=== PATIENT | female | born 2000 | race Caucasian/White ===

== ENCOUNTER 2020-02-25 11:18 | Outpatient (REF) | payer OTHER, SELFPAY ==
[2020-02-25 12:40] LABS: Alanine Aminotransferase 18 U/L (0-31); Albumin Level 4.5 g/dL (3.5-5.0); Alkaline Phosphatase 67 U/L (39-117); Anion Gap 12 (12-20); Aspartate Amino Transferase 16 U/L (5-31); Bilirubin Total 0.4 mg/dL (0.0-1.0); Blood Urea Nitrogen 11 mg/dL (9-16); Calcium 9.3 mg/dL (8.4-10.2); Carbon Dioxide 27 mmol/L (22-29); Chloride 104 mmol/L (96-108); Cholesterol 223 mg/dL; Estimated Glomerular Filt Rate > 60; Glucose Random 77 mg/dL (60-115); HDL Cholesterol 56 mg/dL; LDL Cholesterol Calculated 154 mg/dl; Potassium 4.3 mmol/l (3.3-5.1); Sodium 139 mmol/L (135-145); Total Protein 7.1 g/dL (6.5-8.0); Triglycerides 67 mg/dL
== END 2020-02-25 11:19 | disposition home or self-care (01) ==
LOC: HO.LAB 11:18
PROVIDERS: PCP Family Medicine; Visit Provider Family Medicine
DX: Z00.00 Encounter for general adult medical examination without abnormal findings (principal); E78.5 Hyperlipidemia, unspecified
CPT/HCPCS: 80053; 80061

== ENCOUNTER 2020-03-01 10:58 | Outpatient (REF) | payer OTHER, SELFPAY | END 2020-03-01 10:59 | disposition home or self-care (01) | LOC: HO.HMGCLDS 10:58 | PROVIDERS: PCP Family Medicine; Visit Provider Internal Medicine | DX: Z20.822 Contact with and (suspected) exposure to COVID-19 (principal) | CPT/HCPCS: 36415; C9803; U0003 ==

== ENCOUNTER 2020-03-10 10:06 | Outpatient (REF) | payer OTHER, SELFPAY | END 2020-03-10 10:07 | disposition home or self-care (01) | LOC: HO.HMGCLDS 10:06 | PROVIDERS: PCP Family Medicine; Visit Provider Internal Medicine | DX: Z20.822 Contact with and (suspected) exposure to COVID-19 (principal) | CPT/HCPCS: 36415; C9803; U0003 ==

== ENCOUNTER 2020-05-28 10:49 | Outpatient (REF) | payer OTHER, SELFPAY ==
[2020-05-28 12:36] LABS: Cholesterol 140 mg/dL; HDL Cholesterol 47 mg/dL; LDL Cholesterol Calculated 78 mg/dl; Triglycerides 77 mg/dL
== END 2020-05-28 10:50 | disposition home or self-care (01) ==
LOC: HO.LAB 10:49
PROVIDERS: PCP Family Medicine; Visit Provider Family Medicine
DX: Z00.00 Encounter for general adult medical examination without abnormal findings (principal); E78.5 Hyperlipidemia, unspecified
CPT/HCPCS: 36415; 80061

== ENCOUNTER → 2020-08-19 13:17 | Outpatient (REF) | payer OTHER, SELFPAY ==
--- NOTE | 2020-08-19 13:20 | ECG_ITS ---
Hook-up date: 2020-08-19 13:38:00 Duration: 47:59:00 Test Indications: UNSPEC TACHYCARDIA Medications: 332154 QRS complexes * Ventricular ectopics which represent % of total QRS comp. * Supraventricular ectopics which represent % of total QRS comp. * Paced QRS complexs which represent % of total QRS comp. VENTRICULAR ECTOPY * Isolated * Bigeminal Cycles * Couplets * Runs * Beats in Runs * Beats LONGEST at * BPM at :: -- * Beats FASTEST at * BPM at :: -- SUPRAVENTRICULAR ECTOPY * Isolated * Couplets * Runs * Beats in Runs * Beats LONGEST at * BPM at :: -- * Beats FASTEST at * BPM at :: -- HEART RATES 49 MIN at 03:24:00 2020-08-20 83 AVG 174 MAX at 11:04:22 2020-08-20 LONGEST RR 1.2960 secs at 03:53:05 2020-08-20 S-T LEVELS Channel 1 - 128 mm at 13:38:00 2020-08-19 - 128 mm at 13:38:00 2020-08-19 Channel 2 - 128 mm at 13:38:00 2020-08-19 - 128 mm at 13:38:00 2020-08-19 Channel 3 - 128 mm at 03:25:71 -- - 128 mm at 03:25:71 Basic rhythm Normal sinus rhythm No long pause or profound bradycardia Frequent Sinus tachycardia , 25% of time HR > 100 bpm No dangerous dysrhythm periods Patient reported symptoms correlated with NSR Referred By: Fer Drummond Overread By: JUAN PRICE MD
== END ==
LOC: HO.CARD 13:17
PROVIDERS: PCP Family Medicine; Visit Provider Family Medicine
DX: R00.0 Tachycardia, unspecified (principal)
CPT/HCPCS: 93225; 93226

== ENCOUNTER → 2020-11-04 13:57 | Outpatient (BNVA) | payer OTHER, SELFPAY | PROVIDERS: PCP Family Medicine; Referring Provider Family Medicine; Visit Provider Internal Medicine | DX: R00.0 Tachycardia, unspecified (principal); R00.2 Palpitations; R06.02 Shortness of breath; E78.00 Pure hypercholesterolemia, unspecified; G43.909 Migraine, unspecified, not intractable, without status migrainosus; E66.3 Overweight; U07.0 Vaping-related disorder; J30.1 Allergic rhinitis due to pollen; J30.2 Other seasonal allergic rhinitis; Z68.25 Body mass index [BMI] 25.0-25.9, adult; Z91.013 Allergy to seafood; Z79.899 Other long term (current) drug therapy | CPT/HCPCS: 93005; 99202 ==

== ENCOUNTER → 2020-12-02 12:20 | Outpatient (REF) | payer OTHER, SELFPAY ==
--- NOTE | 2020-12-02 12:27 | HM_ITS ---
Conclusion: 1. Patient was monitored for 3 days and 4 hours 2. Baseline rhythm is sinus rhythm with average heart of 89 beats per minute. 3. Frequent sinus tachycardia, 34.5% of time heart rate greater than 100 beats per minute 4. Control 7 PACs accounted for less than 0.01% of total beats accounting for very rare PACs 5. No significant Avni or tachyarrhythmias noted 6. No patient reported event MTDD
== END ==
LOC: HO.CARD 12:20
PROVIDERS: Visit Provider Family Medicine
DX: R00.0 Tachycardia, unspecified (principal)
CPT/HCPCS: 93242

== ENCOUNTER → 2020-12-09 12:50 | Outpatient (REF) | payer OTHER, SELFPAY ==
--- NOTE | 2020-12-09 13:04 | CA_ITS ---
Transthoracic Echocardiogram Patient (Last, First, Middle): Mary Ray, Gender: Female Date of : 2000 Age: 20 Procedure Date: 12/09/2020 Procedure Type: Transthoracic Echocardiogram Location: OP Height: 160.02 cm Weight: 61.24 kg BSA: 1.64 m2 Heart Rate: bpm BP: 102 / 60 mmHg Tub Puller: DENIS Referring MD: Dami Garza MD Take Off Worker: Robert Be MD Symptoms: R00.0 - Tachycardia, unspecified Study Quality: Fair ECG Rhythm: Sinus Conclusions: - Normal study Findings Left Ventricle Normal left ventricular size, thickness, and systolic function. The visually estimated ejection fraction is between 60-65%. Spectral Doppler is indicative of a normal filling pattern. Right Ventricle Normal right ventricular cavity size and systolic function. Atria Both atria are normal in size. There is no evidence of interatrial shunt. Aortic Valve Normal aortic valve structure and function. There is no aortic valve stenosis. There is no aortic valve regurgitation. Mitral Valve Normal mitral valve structure and function. There is no mitral valve regurgitation. There is no mitral valve stenosis. Pulmonic Valve The pulmonic valve was not well visualized. Tricuspid Valve Normal tricuspid valve structure. There is trace tricuspid valve regurgitation. The right ventricular systolic pressure is normal. The right ventricular systolic pressure is 20 mmHg. Normal right atrial pressure. There is no evidence of pulmonary hypertension. Great Vessels All visible segments of the aorta are normal in size. The pulmonary artery was not well visualized. Venous The inferior vena cava is normal in size and collapses greater than 50% with inspiration. Pericardium/Pleural There is no evidence of pericardial effusion. Prior Study Comparison No prior study available for comparison. Measurements M-Mode Liner Measurements Normals - Women/Men IVSd: 1.08 0.6-0.9/0.6-1.0 cm LVIDd: 4.63 3.9-5.3/4.2-5.9 cm LVIDd Index: 2.82 1.9-3.2 cm/m2 LVIDs: 3.34 2.0-3.8 cm LVPWd: 0.74 0.6-0.9/0.6-1.0 cm LV Mass: 175.59 67-162/88-224g LV Mass Index: 107.07 43-95/49-115 g/m2 M-Mode Volumes LV EDV: 98.80 LV ESV: 45.40 2D Linear Measurements IVSd: 0.87 0.6-0.9/0.6-1.0 cm LVIDd: 4.57 3.9-5.3/4.2-5.9 cm LVIDd Index: 2.79 2.4-3.2/2.2-3.1 cm/m2 LVIDs: 2.73 2.0-3.6 cm LVPWd: 0.57 0.7-1.1 cm Ao Root: 2.30 2.1-3.5 cm LA Diam: 3.10 2.7-3.8/3.0-4.0 cm LAIDs Index: 1.89 1.5-2.3 cm/m2 LV Mass: 125.94 67-162/88-224 g LV Mass Index: 76.79 43-95/49-115 g/m2 LVOT Diam: 1.90 3.0+(-)1.3 cm 2D Systolic Function EF 4C: 59.80 >55% EF 2C: 70.60 >55% EF BiP: 65.60 >55% M-Mode Systolic Function FS: 27.90 27-47/25-43% Mitral Valve MV Pk E: 0.96 MV PK A: 0.45 MV Decel Time: 207.00 E/A: 2.10 E'Lateral: 16.40 E'Medial: 9.79 E/E' Med: 9.80 E/E' Lat: 5.90 PHT: 61.00 MVA PHT: 3.61 Decel [place]: 4.64 Aortic Valve AoV Pk Harley: 1.43 AoV Pk Grad: 8.00 LVOT LVOT Pk Harley: 1.11 LVOT Mn Harley: 0.75 LVOT VTI: 0.20 LVOT Pk Grad: 5.00 LVOT Mn Grad: 3.00 LVOT Diam: 1.90 LVOT Area: 2.84 Diastolic Function MV Pk E: 0.96 MV Pk A: 0.45 E/A: 2.10 E'Medial: 9.79 E/E' Med: 9.80 E' Laterial: 16.40 E/E' Lat: 5.90 Right Ventricle TAPSE (mm): 2.11 Tricuspid Valve TR Pk Harley: 2.08 TR Pk Grad: 17.00 RA Press: 3.00 RVSP: 20.00 Great Vessels Aorta Ao Root-2D: 2.30 2.0-3.7 cm Ao Asc: 2.50 2.1-3.4 cm Ao Arch: 2.30 Updated in Other Vendor System with Status of Final Robert Be MD electronically signed on 12/11/2020 2:12:02 PM with status of Final
== END ==
LOC: HO.CARD 12:50
PROVIDERS: Visit Provider Internal Medicine
DX: R00.0 Tachycardia, unspecified (principal)
CPT/HCPCS: 93306

== ENCOUNTER → 2020-12-20 14:48 | Outpatient (BNVA) | payer OTHER, SELFPAY | PROVIDERS: PCP Family Medicine; Referring Provider Family Medicine; Visit Provider Internal Medicine | DX: R00.0 Tachycardia, unspecified (principal); R00.2 Palpitations; R06.02 Shortness of breath | CPT/HCPCS: 99212 ==

== ENCOUNTER → 2021-01-11 12:30 | Outpatient (BNVA) | payer OTHER, SELFPAY | PROVIDERS: PCP Family Medicine; Referring Provider Family Medicine; Visit Provider Internal Medicine ==

== ENCOUNTER 2021-09-16 10:49 | Outpatient (REF) | payer OTHER, SELFPAY ==
[2021-09-16 13:55] LABS: MANUAL DIFF FLAG NO
[2021-09-16 13:57] LABS: Basophils Percent Auto 0.6 % (0-2); Eosinophils Absolute Auto 0.1 X10*3/uL (0.0-0.4); Eosinophils Percent Auto 1.4 % (0-4); Hematocrit 38.2 % (37.0-47.0); Hemoglobin 12.4 g/dl (12.0-16.0); Imm Gran Abs Auto 0.01 X10*3/uL (0.00-0.03); Imm Gran Pct Auto 0.2 % (0.0-0.4); Lymphocytes Absolute Auto 2.3 X10*3/uL (1.2-4.9); Lymphocytes Percent Auto 47.8 % (20-40); Mean Corpuscular HGB Conc 32.5 g/dl (31.0-35.0); Mean Corpuscular Hemoglobin 28.8 pg (27.0-33.0); Mean Corpuscular Volume 88.6 fL (80.0-98.0); Mean Platelet Volume 11.4 fL (9.4-12.3); Monocytes Absolute Auto 0.5 X10*3/uL (0.1-1.2); Monocytes Percent Auto 10.1 % (2-11); Neutrophils Absolute Auto 1.9 x10*3/uL (2.0-8.3); Neutrophils Percent Auto 39.9 % (45-73); Platelet Count 217 X10*3/uL (160-400); Red Blood Count 4.31 X10*6/uL (4.20-5.50); Red Cell Distribution Width 12.4 % (11.0-16.0); White Blood Count 4.9 X10*3/uL (4.8-10.8)
[2021-09-16 14:31] LABS: Appearance Urine CLEAR; Color Urine YELLOW; Glucose Urine UA NEG (NEG); Leukocyte Esterase Urine 3+ (NEG); Nitrite Urine NEG (NEG); PH 7.5 (5.0-8.0); Urine Blood 1+ (NEG); Urine Ketones NEG (NEG); Urine Protein NEG (NEG-TRACE)
[2021-09-16 14:47] LABS: Bacteria Urine 4+ /LPF; Squamous Epithelial Cell Urine 3+ /LPF; WBC Urine 30-49 /HPF (0-4)
[2021-09-16 15:05] LABS: Alanine Aminotransferase 17 U/L (0-31); Alkaline Phosphatase 57 U/L (39-117); Anion Gap 11 (12-20); Aspartate Amino Transferase 23 U/L (5-31); Bilirubin Total 0.5 mg/dL (0.0-1.0); Blood Urea Nitrogen 6 mg/dL (9-16); Carbon Dioxide 25 mmol/L (22-29); Chloride 108 mmol/L (96-108); Cholesterol 150 mg/dL; Estimated Glomerular Filt Rate > 60; Glucose Fasting 83 mg/dL (60-99); HDL Cholesterol 54 mg/dL; LDL Cholesterol Calculated 86 mg/dl; Potassium 4.3 mmol/L (3.3-5.1); Sodium 140 mmol/L (135-145); Total Protein 6.3 g/dL (6.5-8.0); Triglycerides 50 mg/dL
[2021-09-16 15:24] LABS: TSH reflex Free T4 0.66 uIU/mL (0.32-4.0)
== END 2021-09-16 10:50 | disposition home or self-care (01) ==
LOC: HO.WFDLDS 10:49
PROVIDERS: Visit Provider Family Medicine
DX: Z00.00 Encounter for general adult medical examination without abnormal findings (principal)
CPT/HCPCS: 36415; 80053; 80061; 81001; 81003; 84443; 85025

== ENCOUNTER 2021-11-21 14:28 | Outpatient (REF) | payer OTHER, SELFPAY ==
[2021-11-22 06:06] LABS: CT PCR NOT DETECTED (Not Detect.); NG PCR NOT DETECTED (Not Detect.)
[2021-11-22 11:11] LABS: BV Int Neg Control Negative (Negative); BV Int Pos Control Positive (Positive)
[2021-12-05 20:56] LABS: HPV 16 RNA NOT DETECTED (NOT DETECTED); HPV mRNA E6/E7 rflx Detected (Not Detected)
== END 2021-11-21 14:29 | disposition home or self-care (01) ==
LOC: HO.LNP 14:28
PROVIDERS: Visit Provider Advanced Practice Midwife
DX: Z01.419 Encounter for gynecological examination (general) (routine) without abnormal findings (principal); Z11.3 Encounter for screening for infections with a predominantly sexual mode of transmission; Z11.51 Encounter for screening for human papillomavirus (HPV)
CPT/HCPCS: 87480; 87491; 87510; 87591; 87624; 87625; 87660; 88142

== ENCOUNTER 2022-01-12 11:28 | Outpatient (REF) | payer OTHER, SELFPAY ==
[2022-01-13 02:14] LABS: CT PCR NOT DETECTED (Not Detect.); NG PCR NOT DETECTED (Not Detect.)
[2022-01-13 10:09] LABS: BV Int Neg Control Negative (Negative); BV Int Pos Control Positive (Positive)
== END 2022-01-12 11:29 | disposition home or self-care (01) ==
LOC: HO.LNP 11:28
PROVIDERS: PCP Family Medicine; Visit Provider Obstetrics & Gynecology
DX: N93.0 Postcoital and contact bleeding (principal); R87.610 Atypical squamous cells of undetermined significance on cytologic smear of cervix (ASC-US); R87.810 Cervical high risk human papillomavirus (HPV) DNA test positive
CPT/HCPCS: 87480; 87491; 87510; 87591; 87660; 99212

== ENCOUNTER 2022-08-20 16:05 | Emergency (ER) | payer OTHER, SELFPAY ==
--- NOTE | ~2022-08-20 | XR_ITS ---
Indication: Pain EXAMINATION: Right elbow, right shoulder, right wrist. 4 views of the right wrist demonstrate some one view only minimal lucencies of the mid to distal navicular but this appearance is likely artifact. Therefore no convincing evidence for an acute fracture or dislocation. Alignment is within normal limits. No bony erosion or osteopenia 3 views the right shoulder does not demonstrate evidence for an acute fracture or dislocation. No bony erosion. No osteopenia. 3 views of the right elbow does not demonstrate evidence for an acute fracture or dislocation. No bony erosion or osteopenia. XR/XR shoulder RT min 2V IMPRESSION: Multiple studies. On one view only some minimal lucency through the mid to distal navicular is likely artifact but point palpation would be recommended here and correlation clinically. Otherwise unremarkable studies.
--- NOTE | ~2022-08-20 | XR_ITS ---
Indication: Pain EXAMINATION: Right elbow, right shoulder, right wrist. 4 views of the right wrist demonstrate some one view only minimal lucencies of the mid to distal navicular but this appearance is likely artifact. Therefore no convincing evidence for an acute fracture or dislocation. Alignment is within normal limits. No bony erosion or osteopenia 3 views the right shoulder does not demonstrate evidence for an acute fracture or dislocation. No bony erosion. No osteopenia. 3 views of the right elbow does not demonstrate evidence for an acute fracture or dislocation. No bony erosion or osteopenia. XR/XR wrist RT 2V IMPRESSION: Multiple studies. On one view only some minimal lucency through the mid to distal navicular is likely artifact but point palpation would be recommended here and correlation clinically. Otherwise unremarkable studies.
--- NOTE | ~2022-08-20 | XR_ITS ---
Indication: Pain EXAMINATION: Right elbow, right shoulder, right wrist. 4 views of the right wrist demonstrate some one view only minimal lucencies of the mid to distal navicular but this appearance is likely artifact. Therefore no convincing evidence for an acute fracture or dislocation. Alignment is within normal limits. No bony erosion or osteopenia 3 views the right shoulder does not demonstrate evidence for an acute fracture or dislocation. No bony erosion. No osteopenia. 3 views of the right elbow does not demonstrate evidence for an acute fracture or dislocation. No bony erosion or osteopenia. XR/XR elbow RT 2V IMPRESSION: Multiple studies. On one view only some minimal lucency through the mid to distal navicular is likely artifact but point palpation would be recommended here and correlation clinically. Otherwise unremarkable studies.
[2022-08-20 17:03] VITALS: BP 125/80; PULSE 98; RESP 20; TEMP 36.8; O2SAT 100; BMI 28.3
[2022-08-20 18:31] VITALS: BP 114/67; PULSE 78; RESP 12; TEMP 37.3
[2022-08-20 20:36] VITALS: BP 100/70; PULSE 84; RESP 18; TEMP 36.6; O2SAT 100
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
[2022-08-20] MEDS: Ketorolac Tromethamine 60 MG/2 ML VIAL IM (20:46)
== END 2022-08-20 20:50 | disposition home or self-care (01) ==
PROVIDERS: Emergency Provider Internal Medicine; PCP Family Medicine
DX: S66.911A Strain of unspecified muscle, fascia and tendon at wrist and hand level, right hand, initial encounter (principal); S62.001A Unspecified fracture of navicular [scaphoid] bone of right wrist, initial encounter for closed fracture; M25.511 Pain in right shoulder; M25.531 Pain in right wrist; V86.55XA Driver of 3- or 4- wheeled all-terrain vehicle (ATV) injured in nontraffic accident, initial encounter; Y93.9 Activity, unspecified; Y92.9 Unspecified place or not applicable; Y99.9 Unspecified external cause status; Z79.899 Other long term (current) drug therapy
CPT/HCPCS: 29125; 73030; 73070; 73100; 96372; 99284; J1885

== ENCOUNTER 2022-12-05 14:54 | Outpatient (AMB) | payer OTHER, SELFPAY ==
[2022-12-05 14:58] VITALS: BP 134/82; BMI 29.6
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
== END 2022-12-05 15:57 | disposition home or self-care (01) ==
PROVIDERS: PCP Family Medicine; Visit Provider Advanced Practice Midwife
DX: Z12.4 Encounter for screening for malignant neoplasm of cervix (principal); Z01.419 Encounter for gynecological examination (general) (routine) without abnormal findings; Z87.898 Personal history of other specified conditions; Z11.3 Encounter for screening for infections with a predominantly sexual mode of transmission; Z30.09 Encounter for other general counseling and advice on contraception
CPT/HCPCS: 99395

== ENCOUNTER 2022-12-05 14:54 | Outpatient (REF) | payer OTHER, SELFPAY ==
[2022-12-09 04:39] LABS: HPV 16 RNA NOT DETECTED (NOT DETECTED); HPV mRNA E6/E7 rflx Detected (Not Detected)
== END 2022-12-05 14:55 | disposition home or self-care (01) ==
LOC: HO.LNP 14:54
PROVIDERS: PCP Family Medicine; Visit Provider Advanced Practice Midwife
DX: Z01.419 Encounter for gynecological examination (general) (routine) without abnormal findings (principal); Z11.51 Encounter for screening for human papillomavirus (HPV); Z20.2 Contact with and (suspected) exposure to infections with a predominantly sexual mode of transmission
CPT/HCPCS: 0353U; 87480; 87510; 87624; 87625; 87660; 88142

== ENCOUNTER 2022-12-08 07:40 | Outpatient (REF) | payer OTHER, SELFPAY ==
[2022-12-08 09:24] LABS: Basophils Percent Auto 0.4 % (0-2); Eosinophils Absolute Auto 0.1 X10*3/uL (0.0-0.4); Eosinophils Percent Auto 1.5 % (0-4); Hematocrit 40.6 % (37.0-47.0); Hemoglobin 13.1 g/dl (12.0-16.0); Imm Gran Abs Auto 0.01 X10*3/uL (0.00-0.03); Imm Gran Pct Auto 0.1 % (0.0-0.4); Lymphocytes Absolute Auto 2.4 X10*3/uL (1.2-4.9); Lymphocytes Percent Auto 34.4 % (20-40); MANUAL DIFF FLAG NO; Mean Corpuscular HGB Conc 32.3 g/dl (31.0-35.0); Mean Corpuscular Hemoglobin 27.9 pg (27.0-33.0); Mean Corpuscular Volume 86.4 fL (80.0-98.0); Mean Platelet Volume 10.7 fL (9.4-12.3); Monocytes Absolute Auto 0.5 X10*3/uL (0.1-1.2); Monocytes Percent Auto 7.6 % (2-11); Neutrophils Absolute Auto 3.8 x10*3/uL (2.0-8.3); Platelet Count 227 X10*3/uL (160-400); Red Cell Distribution Width 12.5 % (11.0-16.0); White Blood Count 6.8 X10*3/uL (4.8-10.8)
[2022-12-08 09:32] LABS: Appearance Urine Clear; Color Urine Yellow; Glucose Urine UA Negative (Negative); Leukocyte Esterase Urine Negative (Negative); Nitrite Urine Negative (Negative); PH 5.5 (5.0-9.0); UMIC TRIGGER UA YES; Urine Blood Trace (Negative); Urine Ketones Negative (Negative); Urine Protein Negative (Neg-Trace)
[2022-12-08 09:40] LABS: Bacteria Urine None Seen (None Seen); Hyaline Casts Urine 0-2 /LPF (0-2); RBC Urine 0-2 /HPF (0-2); Squamous Epithelial Cell Urine 0-2 /HPF (0-2); WBC Urine 0-5 /HPF (0-5)
[2022-12-08 10:31] LABS: Alanine Aminotransferase 17 U/L (0-31); Albumin Level 4.4 g/dL (3.5-5.0); Alkaline Phosphatase 59 U/L (39-117); Anion Gap 15 (12-20); Aspartate Amino Transferase 17 U/L (5-31); Bilirubin Total 0.3 mg/dL (0.0-1.0); Blood Urea Nitrogen 6 mg/dL (9-16); Calcium 9.7 mg/dL (8.4-10.2); Carbon Dioxide 23 mmol/L (22-29); Chloride 105 mmol/L (96-108); Cholesterol 161 mg/dL (<200); Estimated Glomerular Filt Rate > 60; Glucose Fasting 84 mg/dL (60-99); HDL Cholesterol 64 mg/dL (>40); LDL Cholesterol Calculated 89 mg/dL (<100); Sodium 139 mmol/L (135-145); Total Protein 7.2 g/dL (6.5-8.0); Triglycerides 42 mg/dL (<150)
[2022-12-08 10:42] LABS: Syphilis Screen Nonreactive (Nonreactive)
[2022-12-08 10:46] LABS: HBsAGNum1 0.41 S/CO (0.00-0.99); HIV AB/AG Nonreactive (Nonreactive); HIV Num 1 0.04 S/CO (0.00-0.99); Hepatitis B Surface Antigen Negative (Negative); ~HepC Num1 0.05 S/CO (0.00-0.79); ~Hepatitis C Antibody Nonreactive (Nonreactive)
[2022-12-08 10:50] LABS: Free T4 (Free Thyroxine) 0.81 ng/dL (0.71-1.85)
[2022-12-09 10:49] LABS: Triiodothyronine T3 Total 163 ng/dL (76-181)
== END 2022-12-08 07:41 | disposition home or self-care (01) ==
LOC: HO.LAB 07:40
PROVIDERS: Absent Provider Advanced Practice Midwife; PCP Family Medicine; Visit Provider Family Medicine
DX: Z00.00 Encounter for general adult medical examination without abnormal findings (principal); Z11.4 Encounter for screening for human immunodeficiency virus [HIV]; E03.9 Hypothyroidism, unspecified; Z20.2 Contact with and (suspected) exposure to infections with a predominantly sexual mode of transmission
CPT/HCPCS: 36415; 80053; 80061; 81001; 84439; 84443; 84480; 85025; 86780; 86803; 87340; 87389

== ENCOUNTER 2023-01-02 11:22 | Outpatient (REF) | payer OTHER, SELFPAY ==
--- NOTE | ~2023-01-02 | US_ITS ---
EXAMINATION: US PELVIS COMPLETE CLINICAL INFORMATION: Abnormal Pap smear. COMPARISON: None TECHNIQUE: Transabdominal and transvaginal imaging was performed. FINDINGS: The uterus is of normal size and echogenicity measuring 6.4 x 2.3 x 3.3 cm. A regular homogeneous endometrium is identified measuring 0.5 cm. Prominent myometrial and adnexal vessels which is seen in the setting of pelvic venous congestion syndrome with clinical history is appropriate. Cervix measures 2.1 cm in length. Both ovaries are of normal size and echogenicity. The right measures 2.3 x 6.6 x 1.5 cm for a volume of 2.9 mL. The left measures 2.1 x 1.5 x 1.3 cm for a volume of 2.2 mL. There is no pelvic free fluid. US/US pelvic and transvaginal IMPRESSION: Prominent myometrial and adnexal vessels which is seen in the setting of pelvic venous congestion syndrome with clinical history is appropriate. Otherwise unremarkable pelvic ultrasound, however recommend correlation with Pap smear results and further clinical management as warranted.
== END 2023-01-02 11:23 | disposition home or self-care (01) ==
LOC: HO.US 11:22
PROVIDERS: PCP Family Medicine; Visit Provider Advanced Practice Midwife
DX: Z32.02 Encounter for pregnancy test, result negative (principal); Z87.898 Personal history of other specified conditions; A63.0 Anogenital (venereal) warts; B97.7 Papillomavirus as the cause of diseases classified elsewhere
CPT/HCPCS: 57454; 76830; 76856; 81025

== ENCOUNTER 2023-01-02 13:08 | Outpatient (AMB) | payer OTHER, SELFPAY ==
--- NOTE | 2023-01-02 13:10 | MHC.OFFVIS ---
Intake Vital Signs 01/02/23 13:17 Height 5 ft 3 in Weight 165 lb 5.547 oz BMI 29.3 BP 120/76 Intake Visit Reasons: COLPO Port Surveyor Required: No Information Interpreted: non-clinical & clinical Crm Dynamics Developer: Crm Dynamics Developer Present (Lorie SHELL) Accompanied by: Self / Same As Patient Allergies shellfish derived [SHELLFISH DERIVED] Allergy (Severe, Verified 01/02/23 13:19) hives SEAFOOD Allergy (Severe, Uncoded 01/02/23 13:19) swelling GRASS Allergy (Intermediate, Uncoded 01/02/23 13:19) Rash SEASONAL ALLERGIES Allergy (Mild, Uncoded 01/02/23 13:19) sneezing Is last menstrual period known: Yes Last menstrual period: 12/26/22 HPI HPI Comments History of Present Illness Details Presenting referred from Mercedes Ray CNM regarding negative Pap smear/HPV E6/E7 positive, negative HPV 16/18/45. The patient had ascus/HPV positive last year [facility] Medical History High cholesterol Motion sickness Migraine Overweight (BMI 25.0-29.9) Paroxysmal sinus tachycardia Surgical History No pertinent past surgical history Family History Mother Cancer Cervical cancer Father No problems noted. Paternal Grandmother Heart attack Social History Housing: House Alcohol intake: current Alcohol intake frequency: holidays/special occasions only Patient Tobacco Use Status: Never used Tobacco e-Cigarette/Vaping Use: Currently Using Second Hand Smoke Exposure: No service: No Current occupational status: employed Current occupational exposures/hazards: No Cognitive needs: No Hearing needs: No Vision needs: No Female Reproductive History Menstrual Age of Menarche: 12 Date of last menstrual period: 12/26/22 control method: pills Physical Exam Vital Signs: Last Vital Signs BP 120/76 01/02/23 13:17 BMI result Body Mass Index 29.3 Office Procedures Colposcopy Before the procedure was started discussed with the patient the procedure, alternatives & all the risks associated with the procedure (bleeding, infection, injury to vagina, bladder, vessels, possible need for transfusion with all its risks) then patient signed the consent Pap smear = negative Pap/HPV positive, preceded by ascus/HPV positive in 2021 Urine test done in the office was negative Speculum inserted, acetic acid used Colposcopy done Transformation zone seen, acetowhite lesions identified at 5+6+7+9+10+1+3 o?clock, cervical biopsies taken from 5+6+7+9+10+1+3 o?clock, ECC done afterwards. Vaginoscopy of the upper vagina showed no evidence of any aceto-white lesions Monsel solution used for hemostasis. The patient tolerated well . At the end the patient was instructed to call if temp>100.4, abdominal pain, n/v, bleeding; The patient was given the following instructions: nothing per vagina, no intercourse or bath tub use. All questions answered the patient verbalized understanding. Instructed the patient to make an appointment in 2 weeks for follow-up This note was generated with a voice recognition program. Some errors may have been overlooked during the review of this note. Sometimes these errors may affect the content or meaning of a given sentence. 09051-Lnkoydadt of cervix including upper vagina with biopsy and ECC Procedure code (CPT) selection complete Results AMB Test Urine AMB Test Urine Negative Last Edit by Lorie Guerrero CMA on 01/02/23 13:45 Assessment & Plan Assessment & Plan (1) HPV in female: Comment: Negative Pap, preceded by ascus/HPV positive in 2021 Code(s): B97.7 - Papillomavirus as the cause of diseases classified elsewhere Plan: Discussed with the patient the ASCCP guidelines for age is less than 25 with negative Pap preceded by ascus/HPV positive the recommendation is to repeat Pap smear in a year. Explained to the patient that HPV was not indicated, but the patient is very anxious about risk of severe dysplasia and is concerned about the impact of immunosuppression indication due to her autoimmune disease and is requesting more of diagnostic test, explained the patient that colposcopy is not be indicated per ASCCP guidelines, Pap will proceed with colposcopy per request , all questions answered the patient verbalized understand Orders: Orders AMB Colposcopy Today B97.7 - Papillomavirus as the cause of diseases classified elsewhere AMB HCG Urine Test Today Z32.02 - Encounter for test, result negative Coding Level of Care Code Procedure Only Diagnoses HPV in female B97.7 CPT Codes Colposcopy - CPT: 67824-Mejfihyis of cervix including upper vagina with biopsy and ECC ([id number])
[2023-01-02 13:17] VITALS: BP 120/76; BMI 29.3
== END 2023-01-02 14:16 | disposition home or self-care (01) ==
LOC: HO.HWS 13:08
PROVIDERS: PCP Family Medicine; Visit Provider Obstetrics & Gynecology
DX: R87.810 Cervical high risk human papillomavirus (HPV) DNA test positive (principal); Z32.02 Encounter for pregnancy test, result negative
CPT/HCPCS: 57454

== ENCOUNTER 2023-01-02 14:16 | Outpatient (REF) | payer OTHER, SELFPAY | END 2023-01-02 14:17 | disposition home or self-care (01) | LOC: HO.LNP 14:16 | PROVIDERS: Visit Provider Obstetrics & Gynecology | DX: A63.0 Anogenital (venereal) warts (principal); B97.7 Papillomavirus as the cause of diseases classified elsewhere | CPT/HCPCS: 88305 ==

== ENCOUNTER 2023-01-04 15:33 | Outpatient (AMB) | payer OTHER, SELFPAY ==
--- NOTE | 2023-01-04 15:39 | MHC.OFFVIS ---
Intake Vital Signs 01/04/23 15:51 Height 5 ft 3 in Weight 165 lb 5.547 oz BMI 29.3 Temp 97.1 F Intake Visit Reasons: follow up per Compensation Coordinator Required: No Information Interpreted: non-clinical & clinical Commercial Escrow Officer: Commercial Escrow Officer Present (Lorie SHELL) Accompanied by: Self / Same As Patient Allergies shellfish derived [SHELLFISH DERIVED] Allergy (Severe, Verified 01/04/23 15:41) hives SEAFOOD Allergy (Severe, Uncoded 01/04/23 15:41) swelling GRASS Allergy (Intermediate, Uncoded 01/04/23 15:41) Rash SEASONAL ALLERGIES Allergy (Mild, Uncoded 01/04/23 15:41) sneezing HPI HPI Comments History of Present Illness Details Presenting 2 days post colposcopy complaining of pelvic cramping, no vaginal discharge no fever or chills, no nausea or vomiting. [facility] Medical History High cholesterol Motion sickness Migraine Overweight (BMI 25.0-29.9) Paroxysmal sinus tachycardia Surgical History No pertinent past surgical history Family History Mother Cancer Cervical cancer Father No problems noted. Paternal Grandmother Heart attack Social History Housing: House Alcohol intake: current Alcohol intake frequency: holidays/special occasions only Patient Tobacco Use Status: Never used Tobacco e-Cigarette/Vaping Use: Currently Using Second Hand Smoke Exposure: No service: No Current occupational status: employed Current occupational exposures/hazards: No Cognitive needs: No Hearing needs: No Vision needs: No Female Reproductive History Menstrual Age of Menarche: 12 Review of Systems Const All systems reviewed & are unremarkable except as noted in HPI and below Physical Exam General: Yes no CVA tenderness External Female Exam: normal external appearance and normal appearance of the urethra Speculum Exam - Vagina: normal appearance of the vagina, normal palpation, no lesions and no masses Speculum Exam - Cervix: normal appearance of the cervix, normal palpation, no lesions, no masses and nontender Bimanual exam- vagina & uterus: normal bimanual exam, normal palpation, uterine size normal, normal palpation, uterine shape normal, No Cervical tenderness present and non-tender Bimanual Exam- Adnexa, other: normal adnexae Back/Spine/Pelvis Back: no CVA tenderness Assessment & Plan Assessment & Plan (1) Pelvic cramping: Comment: Post colposcopy Code(s): R10.2 - Pelvic and perineal pain Plan: Urine test was done in the office was negative. Discussed with the patient the finding on pelvic exam, normal no cervical motion tenderness, no uterine or adnexal tenderness. Instructions given the patient to call in case of worsening of the pain, fever above 100.4, nausea or vomiting or heavy bleeding. All questions answered, the patient verbalized understanding. Coding Level of Care Code Est Pt Level 3 (80799) Diagnoses Pelvic cramping R10.2
[2023-01-04 15:51] VITALS: TEMP 36.2; BMI 29.3
== END 2023-01-04 15:51 | disposition home or self-care (01) ==
LOC: HO.HWS 15:33
PROVIDERS: PCP Family Medicine; Visit Provider Obstetrics & Gynecology
DX: R10.2 Pelvic and perineal pain (principal)
CPT/HCPCS: 99213

== ENCOUNTER → 2023-01-04 15:33 | Outpatient (BNVA) | payer OTHER, SELFPAY | PROVIDERS: PCP Family Medicine; Visit Provider Obstetrics & Gynecology ==

== ENCOUNTER 2023-01-11 08:03 | Outpatient (AMB) | payer OTHER, SELFPAY ==
--- NOTE | 2023-01-11 08:18 | MHC.OFFVIS ---
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 The patient is doing well with minimal pelvic cramping no vaginal bleeding or discharge, no fever or chills and no other concerns. The pathology showed the following: A. Cervix, 1 o'clock, biopsy: Superficial fragments of mildly inflamed endocervical mucosa; no atypia identified; no squamous epithelium present. B. Cervix, 3 o'clock, biopsy: Superficial fragments of mildly inflamed endocervical mucosa with squamous metaplasia; no atypia identified. C. Cervix, 5 o'clock, biopsy: - Low-grade squamous intraepithelial lesion (MANDY 1). - Background inflamed cervical transformation zone mucosa. D. Cervix, 6 o'clock, biopsy: Fragments of endocervical mucosa and squamous epithelium within normal limits. E. Cervix, 7 o'clock, biopsy: - Low-grade squamous intraepithelial lesion (MANDY 1). - Background inflamed cervical transformation zone mucosa. F. Cervix, 9 o'clock, biopsy: Inflamed cervical transformation zone mucosa with reactive changes. G. Cervix, 10 o'clock, biopsy: Superficial fragments of mildly inflamed endocervical mucosa; no atypia identified; no squamous epithelium present. H. Endocervix, curettage: Strips of endocervical epithelium within normal limits; mucoinflammatory material [facility] Medical History High cholesterol Motion sickness Migraine Overweight (BMI 25.0-29.9) Paroxysmal sinus tachycardia Surgical History No pertinent past surgical history Family History Mother Cancer Cervical cancer Father No problems noted. Paternal Grandmother Heart attack Social History Housing: House Alcohol intake: current Alcohol intake frequency: holidays/special occasions only Patient Tobacco Use Status: Never used Tobacco e-Cigarette/Vaping Use: Currently Using Second Hand Smoke Exposure: No service: No Current occupational status: employed Current occupational exposures/hazards: No Cognitive needs: No Hearing needs: No Vision needs: No Female Reproductive History Menstrual Age of Menarche: 12 Date of last pap smear: 12/06/22 (+HPV) Review of Systems Const All systems reviewed & are unremarkable except as noted in HPI and below Reports as per HPI and Reports no additional complaints GI Reports no additional complaints Reports no additional complaints Physical Exam Vital Signs: Last Vital Signs BP 114/72 01/11/23 08:19 BMI result Body Mass Index 29.2 Assessment & Plan Assessment & Plan (1) Dysplasia of cervix, low grade (MANDY 1): Code(s): N87.0 - Mild cervical dysplasia Plan: Discussed with the patient the pathology results of the colposcopy biopsies & endocervical curettage ( mild dysplasia-MANDY 1). Discussed with the patient the sensitivity specificity, positive and negative predictive value in detecting cervical cancer in addition discussed the regression, persistence and progression rates. Recommended Pap smear in 12 months, if abnormal will proceed was colposcopy biopsy and endocervical curettage, if MANDY 1 gets worse or stays persistent for 2 years will proceed with loop electric excision procedure. Instructions given to the patient to schedule an appointment in 1 year. All questions answered the patient verbalized understanding. Coding Level of Care Code Est Pt Level 3 (03228) Diagnoses Dysplasia of cervix, low grade (MANDY 1) N87.0
[2023-01-11 08:19] VITALS: BP 114/72; BMI 29.2
== END 2023-01-11 08:47 | disposition home or self-care (01) ==
LOC: HO.HWS 08:03
PROVIDERS: PCP Family Medicine; Visit Provider Obstetrics & Gynecology
DX: N87.0 Mild cervical dysplasia (principal)
CPT/HCPCS: 99213

== ENCOUNTER → 2023-01-11 08:03 | Outpatient (BNVA) | payer OTHER, SELFPAY | PROVIDERS: PCP Family Medicine; Visit Provider Obstetrics & Gynecology ==

== ENCOUNTER 2023-01-17 10:10 | Outpatient (AMB) | payer OTHER, SELFPAY ==
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
[2023-01-17 10:23] VITALS: BP 112/72; BMI 29.2
== END 2023-01-17 10:57 | disposition home or self-care (01) ==
LOC: HO.HWS 10:10
PROVIDERS: PCP Family Medicine; Visit Provider Advanced Practice Midwife
DX: N87.0 Mild cervical dysplasia (principal); N93.0 Postcoital and contact bleeding; N94.89 Other specified conditions associated with female genital organs and menstrual cycle; N94.2 Vaginismus
CPT/HCPCS: 99213

== ENCOUNTER → 2023-01-17 10:10 | Outpatient (BNVA) | payer OTHER, SELFPAY | PROVIDERS: PCP Family Medicine; Visit Provider Advanced Practice Midwife ==

== ENCOUNTER 2023-09-12 07:56 | Outpatient (AMB) | payer OTHER, SELFPAY ==
--- NOTE | 2023-09-12 08:04 | AM.OFFWIN_ITS ---
Intake Vital Signs 09/12/23 08:09 Height 5 ft 3 in Weight 175 lb BMI 31.0 BP 116/60 Blood Pressure Location Rt brachial Position Sitting Respiration 16 Pulse 100 Pulse Source Pulse Oximeter Temp 97.5 F Temp Source Temporal Artery Scan Pulse Oximetry (%) 98 Oxygen Delivery Method Room Air Intake Visit Reasons: est/ fever/ not feeling well/migrane Intake Note: patient here as walk in c/o fever, migranes, light headed. Patient Tobacco Use Status: Never used Tobacco Is last menstrual period known: Yes Last menstrual period: 09/05/23 Post menopausal: No Patient : No Allergies shellfish derived [SHELLFISH DERIVED] Allergy (Severe, Verified 09/12/23 08:16) hives SEAFOOD Allergy (Severe, Uncoded 01/17/23 10:24) swelling GRASS Allergy (Intermediate, Uncoded 01/17/23 10:24) Rash SEASONAL ALLERGIES Allergy (Mild, Uncoded 01/17/23 10:24) sneezing Medication List - Last Reconciled 09/12/23 by Melly Reyes, RJ-[place] atorvastatin 10 mg PO BEDTIME erenumab-aooe (Aimovig Autoinjector) 140 mg subcut .monthly 30 days ibuprofen 600 mg PO Q6H PRN pyridostigmine bromide 60 mg PO BID sumatriptan succinate 100 mg PO DAILY Do you need a note to return to daycare/school/sports/work: Yes HPI HPI Comments History of Present Illness Details 23 y/o F here today w/ flu like sx that started last night sudden onset of fever, chills, chest congestion, nasal congestion, body aches, ears feel muffled, lightheadedness home covid test negative this AM 100.5 temp today after fever reducing me dications used Excedrin this AM Reports that she was sick like this in March. And she felt ill for several weeks. She is very worried that she has an underlying issue that is causing her to get sick all the time. Exam Awake alert NAD Sclera and conjunctiva clear bilat Nares w scant clear drainage, turbinates within normal limits, no sinus tenderness with palpation bilat TM intact and clear bilat MMM, pharynx WNL RRR LS CTAB Plan: Supportive care to include cough suppressants, p.r.n. Mary Ann for shortness of breath, [id number] analgesics and fever reducers. Out of work with return 09/19/2023. Recommended a follow up with primary care to request a referral to immunology given the complaints of being sick all of the time. Also advised that if she has a PPO insurance she likely does not need a referral and she can make an appointment on her own. Given the information for allergy and immunology of [facility]. This note is constructed using voice recognition software. While every effort has been made to ensure accuracy in hybrid powertrain development engineer, still errors may have been included Sometimes, these errors may affect the content or meaning of the given sentence . [facility] Medical History High cholesterol Motion sickness Migraine Overweight (BMI 25.0-29.9) Paroxysmal sinus tachycardia Surgical History No pertinent past surgical history Family History Mother Cancer Cervical cancer Father No problems noted. Paternal Grandmother Heart attack Social History Housing: House Alcohol intake: current Alcohol intake frequency: holidays/special occasions only Patient Tobacco Use Status: Never used Tobacco e-Cigarette/Vaping Use: Currently Using Second Hand Smoke Exposure: No service: No Current occupational status: employed Current occupational exposures/hazards: No Cognitive needs: No Hearing needs: No Vision needs: No Female Reproductive History Menstrual Age of Menarche: 12 Date of last menstrual period: 09/05/23 Physical Exam Vital Signs: Last Vital Signs Temp 97.5 F 09/12/23 08:09 Pulse 100 09/12/23 08:09 Resp 16 09/12/23 08:09 BP 116/60 09/12/23 08:09 Pulse Ox 98 09/12/23 08:09 Oxygen Delivery Method Room Air 09/12/23 08:09 BMI result Body Mass Index 31.0 Assessment & Plan Assessment & Plan (1) Flu-like symptoms: Code(s): R68.89 - Other general symptoms and signs Plan: . Medications: New benzonatate 100 mg PO TID 10 days PRN 30 caps 1RF cough albuterol sulfate 90 mcg/actuation 2 puffs inhalation Q4-6H 30 days PRN 8.5 grams 0RF shortness of breath or wheezing Coding Level of Care Code Est Pt Level 3 (70880) Diagnoses Flu-like symptoms R68.89
[2023-09-12 08:09] VITALS: BP 116/60; PULSE 100; RESP 16; TEMP 36.4; O2SAT 98; BMI 31.0
== END 2023-09-12 08:26 | disposition home or self-care (01) ==
PROVIDERS: PCP Family Medicine; Visit Provider Nurse Practitioner Family
DX: R68.89 Other general symptoms and signs (principal)
CPT/HCPCS: 99213

== ENCOUNTER 2023-09-27 15:27 | Outpatient (AMB) | payer OTHER, SELFPAY ==
--- NOTE | 2023-09-27 15:31 | A.OFFPC_ITS ---
Vital Signs 09/27/23 15:33 Height 5 ft 3 in Weight 167 lb 4 oz BMI 29.6 BP 110/66 Blood Pressure Location Lt brachial Position Sitting Pulse 93 Pulse Source Pulse Oximeter Pulse Oximetry (%) 98 Oxygen Delivery Method Room Air Intake Visit Reasons: follow up urgent care visit 09/11 Intake Note: Patient is here to follow up on walk in visit on 09/12/23 and lab results. 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 Accompanied by: Self / Same As Patient Allergies shellfish derived [SHELLFISH DERIVED] Allergy (Severe, Verified 09/27/23 15:33) hives SEAFOOD Allergy (Severe, Uncoded 09/27/23 15:33) swelling GRASS Allergy (Intermediate, Uncoded 09/27/23 15:33) Rash SEASONAL ALLERGIES Allergy (Mild, Uncoded 09/27/23 15:33) sneezing Tobacco use date assessed: 09/27/23 Dental Screening Dental Screen Date: 09/27/23 Did you have a dental visit in the last 12 months?: Yes Did you have a dental problem in the last 6 months where you did not have access to dental care?: No Was dental information given to patient?: Patient has dentist HPI follow up urgent care visit 09/11 HPI Details Pt presents to f/u flu-like symptoms - had seen urgent care for this 09/12/23. Pt reports ongoing sore throat, difficulty swallowing. She had brought labs from an outside lab. Elevated liver enzymes in the 50s. She reports neck pain x1 year. [facility]LY [facility] Medical History High cholesterol Motion sickness Migraine Overweight (BMI 25.0-29.9) Paroxysmal sinus tachycardia Surgical History No pertinent past surgical history Family History Mother Cancer Cervical cancer Father No problems noted. Paternal Grandmother Heart attack Social History Housing: House Alcohol intake: current Alcohol intake frequency: holidays/special occasions only Patient Tobacco Use Status: Never used Tobacco e-Cigarette/Vaping Use: Former Use Second Hand Smoke Exposure: No service: No Current occupational status: employed Current occupational exposures/hazards: No Cognitive needs: No Hearing needs: No Vision needs: No Female Reproductive History Menstrual Age of Menarche: 12 Questionnaire PHQ-9 Over the last 2 weeks, how often have you been bothered by any of the following problems? 1. Little interest or pleasure in doing things: not at all 2. Feeling down, depressed, or hopeless: not at all 3. Trouble falling or staying asleep, or sleeping too much: not at all 4. Feeling tired or having little energy: not at all 5. Poor appetite or overeating: not at all 6. Feeling bad about yourself - or that you are a failure or have let yourself or your family down: not at all 7. Trouble concentrating on things, such as reading the newspaper or watching television: not at all 8. Moving or speaking so slowly that other people could have noticed. Or the opposite - being so fidgety or restless that you have been moving around a lot more than usual: not at all 9. Thoughts that you would be better off or of hurting yourself in some way: not at all Total score: 0 Depression Screening Interpretation: Negative Depression Screening Done: Yes 16087 - PHQ-9 Billing: Yes Source: Developed by Drs. Giuseppe Quispe, Rose Cross, Alex Schulz and colleagues, with an educational ann marie from [employer] Thrive Questionnaire Date Thrive assessed: 09/27/23 I am a: Patient What is your living situation today?: I have a steady place to live Within the past 12 months, did the food you bought not last and you didn't have the money to get more?: Never true Within the past 12 months, did you worry whether your food would run out before you got money to buy more?: Never true Do you have trouble paying for medicines?: No Do you have trouble getting transportation to medical appointments?: No Do you have trouble paying your heating and electricity bill?: No Do you have trouble taking care of your child, family member or friend?: No Do you have trouble with day-to-day activities such as bathing, preparing meals, shopping, managing finances, etc.?: No Are you currently unemployed and looking for a job?: No Are you interested in more education?: No Currently or been in a relationship where the following occur: No concerns reported THRIVE Score: 0 AUDIT C Alcohol Use Questionnaire (AUDIT-C) 1. How often do you have a drink containing alcohol?: Never Total Score: 0 TANMAY-7 AMB Questionnaire TANMAY-7 Date TANMAY - 7 assessed: 09/27/23 Feeling nervous, anxious, or on edge: 0 = Not at all Not being able to stop or control worryin = Not at all Worrying too much about different things: 0 = Not at all Trouble relaxin = Not at all Being so restless that it is hard to sit still: 0 = Not at all Becoming easily annoyed or irritable: 0 = Not at all Feeling afraid as if something awful might happen: 0 = Not at all Total TANMAY-7 score (0-4 normal; 5-9 mild; 10-14 moderate; 15-21 severe): 0 Source: Developed by Drs. Giuseppe Quispe, Rose Cross, Alex Schulz and colleagues, with an educational ann marie from [employer] TANMAY-7 Assessment Billing TANMAY-7 Assessment Tool: TANMAY-7 Assessment 97679 Review of Systems Const Denies chills, Denies fatigue, Denies fever(s), Denies headache(s) and Denies weakness ENT Denies dizziness, Denies headache(s), Reports neck pain and Reports sore throat Card Denies dyspnea Resp Denies cough, Denies dyspnea, Denies wheezing and Denies other (shortness of breath) Musc Reports neck pain, Denies numbness and Denies tingling Neuro Denies dizziness, Denies headache(s), Denies numbness, Denies tingling and Denies weakness Psych Denies anxiety and Denies depression Endo Denies fatigue Aller/Immun Denies wheezing Physical exam (Primary Care) Vital Signs: Last Vital Signs Pulse 93 09/27/23 15:33 BP 110/66 09/27/23 15:33 Pulse Ox 98 09/27/23 15:33 Oxygen Delivery Method Room Air 09/27/23 15:33 BMI result Body Mass Index 29.6 Tobacco/Smoking Status: Tobacco use Status Tobacco use date assessed 09/27/23 09/27/23 15:35 Patient Tobacco Use Status Never used Tobacco 09/27/23 15:35 e-Cigarette/Vaping Use Former Use 09/27/23 15:39 PHQ-9: PHQ-9 Score PHQ-9: Total score 0 09/27/23 15:53 Depression Screening Interpretation: Negative Thrive Assessment: Date of Thrive Assessment Date Thrive assessed 09/27/23 09/27/23 15:35 Currently or been in a relationship where the following occur: No concerns reported Const General: well developed; No acute distress Nutritional Appearance: well nourished Orientation/consciousness: patient oriented x3 HENMT Head: Yes normocephalic and Yes atraumatic Eyes General: appearance normal, both eyes and all related structures Pupils: Equal, round and reactive pupils present EOM: EOMs intact bilaterally Resp Effort & Inspection: normal respiratory effort Neuro General: patient oriented x3 and gait normal Cranial nerves: Yes Equal, round and reactive pupils present Psych Affect: normal affect Assessment and Plan Assessment & Plan (1) Flu-like symptoms: Code(s): R68.89 - Other general symptoms and signs Plan: Patient?still?has vague?flu- like?symptoms.??She?also?tried?to?reach?out?to?immunology?and?was?told?she?would ?need?referral No?lymphadenopathy.??Posterior?pharynx?normal?though?she?mentions?sore?throat (2) Elevated liver enzymes: Code(s): R74.8 - Abnormal levels of other serum enzymes Plan: Mildly?elevated?liver?enzyme Advised?weight?loss?and?good?hydration Avoid?Tylenol?and?alcohol Will?repeat?prior?to?her?next?visit?and?if?daksha er?enzymes?are?the?same?or?higher,?will?check?an?ultrasound (3) Cervicalgia: Code(s): M54.2 - Cervicalgia Plan: Chronic?muscular?cervicalgia Will?check?an?x-ray Start?physical?therapy Ice/heat NSAIDs Orders: Orders Comprehensive [place]. Panel Fast Today R74.8 - Abnormal levels of other serum enzymes, Z00.00 - Encounter for general adult medical examination without abnormal findings Lipid Panel Today E78.00 - Pure hypercholesterolemia, unspecified, Z00.00 - Encounter for general adult medical examination without abnormal findings Microalbumin, Random (w Creat) Today I10 - Essential (primary) hypertension Erythrocyte Sedimentation Rate Today R68.89 - Other general symptoms and signs CRP High Sensitivity Today R68.89 - Other general symptoms and signs Hepatitis B,C Profile Today R68.89 - Other general symptoms and signs, Z11.3 - Encounter for screening for infections with a predominantly sexual mode of transmission PT Evaluation and Treatment Today M54.2 - Cervicalgia TSH reflex Free T4 Today Z00.00 - Encounter for general adult medical examination without abnormal findings UA and rflx microscopic Today Z00.00 - Encounter for general adult medical ex amination without abnormal findings Complete Blood Count Auto Diff Today R68.89 - Other general symptoms and signs, Z00.00 - Encounter for general adult medical examination without abnormal findings SHON Reflex Titer and Pattern Today R68.89 - Other general symptoms and signs HIV Ab/Ag Today R68.89 - Other general symptoms and signs, Z11.3 - Encounter for screening for infections with a predominantly sexual mode of transmission XR cervical spine 3V Today M54.2 - Cervicalgia Referrals Allergy & Immunology Referral R68.89 - Other general symptoms and signs Medications: New diclofenac sodium 1% 2 grams topical QID 30 days 100 grams 1RF M54.2 - Cervicalgia Coding Level of Care Code Tele Est Pt Level 4 (53107) Diagnoses Flu-like symptoms R68.89 Elevated liver enzymes R74.8 Cervicalgia M54.2 Additional Codes TANMAY-7 Assessment Billing - TANMAY-7 Assessment Tool: TANMAY-7 Assessment 61553 ([id number])
[2023-09-27 15:33] VITALS: BP 110/66; PULSE 93; O2SAT 98; BMI 29.6
== END 2023-09-27 16:17 | disposition home or self-care (01) ==
PROVIDERS: PCP Family Medicine; Visit Provider Family Medicine
DX: R68.89 Other general symptoms and signs (principal); R74.8 Abnormal levels of other serum enzymes; M54.2 Cervicalgia
CPT/HCPCS: 99214

== ENCOUNTER 2023-11-26 09:43 | Outpatient (REF) | payer OTHER, SELFPAY ==
[2023-11-26 10:01] LABS: MANUAL DIFF FLAG NO
[2023-11-26 10:11] LABS: Basophils Percent Auto 0.6 % (0-2); Eosinophils Absolute Auto 0.1 X10*3/uL (0.0-0.4); Hematocrit 38.6 % (37.0-47.0); Hemoglobin 12.2 g/dl (12.0-16.0); Imm Gran Abs Auto 0.02 X10*3/uL (0.00-0.03); Imm Gran Pct Auto 0.3 % (0.0-0.4); Lymphocytes Absolute Auto 2.3 X10*3/uL (1.2-4.9); Lymphocytes Percent Auto 37.4 % (20-40); Mean Corpuscular HGB Conc 31.6 g/dl (31.0-35.0); Mean Corpuscular Hemoglobin 27.4 pg (27.0-33.0); Mean Corpuscular Volume 86.7 fL (80.0-98.0); Monocytes Absolute Auto 0.6 X10*3/uL (0.1-1.2); Monocytes Percent Auto 9.5 % (2-11); Neutrophils Absolute Auto 3.2 x10*3/uL (2.0-8.3); Neutrophils Percent Auto 51.2 % (45-73); Platelet Count 252 X10*3/uL (160-400); Red Blood Count 4.45 X10*6/uL (4.20-5.50); Red Cell Distribution Width 13.2 % (11.0-16.0); White Blood Count 6.2 X10*3/uL (4.8-10.8)
[2023-11-26 10:55] LABS: Erythrocyte Sedimentation Rate 8 MM/HR (0-20)
[2023-11-26 10:59] LABS: Alanine Aminotransferase 36 U/L (0-31); Albumin Level 3.9 g/dL (3.5-5.0); Alkaline Phosphatase 82 U/L (39-117); Anion Gap 11 (12-20); Aspartate Amino Transferase 26 U/L (5-31); Bilirubin Total 0.4 mg/dL (0.0-1.0); Blood Urea Nitrogen 9 mg/dL (9-16); Calcium 9.2 mg/dL (8.4-10.2); Carbon Dioxide 25 mmol/L (22-29); Chloride 108 mmol/L (96-108); Cholesterol 178 mg/dL (<200); Estimated Glomerular Filt Rate > 60; Glucose Fasting 90 mg/dL (60-99); HDL Cholesterol 63 mg/dL (>40); LDL Cholesterol Calculated 106 mg/dL (<100); Potassium 4.1 mmol/L (3.3-5.1); Sodium 140 mmol/L (135-145); Total Protein 6.4 g/dL (6.5-8.0); Triglycerides 49 mg/dL (<150)
[2023-11-26 11:02] LABS: HBS Num1 0.52 mIU/mL (0-7.99); HBc Num1 0.12 S/CO (0.00-0.79); HBsAGNum1 0.37 S/CO (0.00-0.99); HIV AB/AG Nonreactive (Nonreactive); HIV Num 1 0.05 S/CO (0.00-0.99); Hepatitis B Core Antibody Nonreactive (Nonreactive); Hepatitis B Surface Antigen Negative (Negative); ~HepC Num1 0.07 S/CO (0.00-0.79); ~Hepatitis B Surface Antibody NONREACTIVE (Nonreactive); ~Hepatitis C Antibody Nonreactive (Nonreactive)
[2023-11-26 11:22] LABS: TSH reflex Free T4 0.84 uIU/mL (0.32-4.0)
[2023-11-26 12:12] LABS: Appearance Urine Clear; Color Urine Yellow; Glucose Urine UA Negative (Negative); Leukocyte Esterase Urine Negative (Negative); Nitrite Urine Negative (Negative); Urine Blood Negative (Negative); Urine Ketones Negative (Negative); Urine Protein Negative (Neg-Trace)
[2023-11-26 12:38] LABS: Creatinine Urine 136.19 mg/dL; Microalbumin Urine < 5.0 mg/L
[2023-11-27 17:13] LABS: CRP High Sensitivity 7.3 mg/L
[2023-11-28 12:28] LABS: Anti Nuclear Antibody Screen NEGATIVE (NEGATIVE)
== END 2023-11-26 09:44 | disposition home or self-care (01) ==
LOC: HO.LAB 09:43
PROVIDERS: PCP Family Medicine; Visit Provider Family Medicine
DX: Z00.00 Encounter for general adult medical examination without abnormal findings (principal); R68.89 Other general symptoms and signs; E78.00 Pure hypercholesterolemia, unspecified; Z11.3 Encounter for screening for infections with a predominantly sexual mode of transmission; R74.8 Abnormal levels of other serum enzymes; I10 Essential (primary) hypertension
CPT/HCPCS: 36415; 80053; 80061; 81003; 82043; 82570; 84443; 85025; 85652; 86038; 86141; 86704; 86706; 86803; 87340; 87389

== ENCOUNTER 2023-11-29 08:02 | Outpatient (AMB) | payer OTHER, SELFPAY ==
--- NOTE | 2023-11-29 08:06 | A.OFFPC_ITS ---
Vital Signs 11/29/23 08:09 Height 5 ft 3 in Weight 177 lb 2 oz BMI 31.4 BP 100/66 Blood Pressure Location Rt brachial Position Sitting Pulse 71 Pulse Source Pulse Oximeter Pulse Oximetry (%) 99 Oxygen Delivery Method Room Air Intake Visit Reasons: CPE with f/u labs Intake Note: Physical. Lab results Occupational Therapy Asst Required: No Allergies shellfish derived [SHELLFISH DERIVED] Allergy (Severe, Verified 11/29/23 08:07) hives SEAFOOD Allergy (Severe, Uncoded 11/29/23 08:07) swelling GRASS Allergy (Intermediate, Uncoded 11/29/23 08:07) Rash SEASONAL ALLERGIES Allergy (Mild, Uncoded 11/29/23 08:07) sneezing Medication List - Last Reconciled 11/29/23 by Chel Allred PA-C atorvastatin 10 mg PO BEDTIME erenumab-aooe (Aimovig Autoinjector) 140 mg subcut .monthly 30 days ibuprofen 600 mg PO Q6H PRN pyridostigmine bromide 60 mg PO BID sumatriptan succinate 100 mg PO DAILY Tobacco use date assessed: 09/27/23 Dental Screening Dental Screen Date: 09/27/23 HPI CPE with f/u labs HPI Details Pt is a 23 y.o female who presents today for a cpe. She is a patient of Dr. Drummond and recently had labs and work up for elevated lfts , frequent infections and joint pains. GI: The plan was if the LFTs were elevated she was going to have a liver ultrasound. She states that the liver tests have only been elevated the last year. She is on Lipitor but states that she has been on this for many years. She has always tolerated this well. She states that she does not drink or do anything in excess. No nausea, vomiting or abdominal pain. Musculoskeletal: Joint pains started 3 years ago periods worse in the neck and shoulders but her elbows bother her regularly as well. She forgot to get imaging of her neck. She says that it feels achy but not really stiff. At times the elbows will become red and a little hot. No joint swelling, numbness, tingling or weakness. No known tick bites. Pain is worse in the morning gets better as the day goes on. No family history of autoimmune diseases. CV: Follows with cardiology in [place] for her POTS. No recent changes to medications. Blood pressure today is 100/66. Breasts: Complains today of breast pain in both breasts for the last month and a half. It is persistent. The left breast is worse than the right. She states that she can not feel any masses but is concerned because they are painful in the same areas. No nipple drainage. Last menstrual period was 2 weeks ago. The breast pain did not change with menstruation or ovulation. Psych: She does have some increased stress recently. She states that she recently started to try to get . 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 No SI/HI. Not any medication for anxiety or depression. Uro: She went to urgent care a week ago for dizziness. She states that it was an exacerbation of her pots but they did do a urine and found microscopic hematuria. She thinks that she was well hydrated. No abdominal pain, gross hematuria, dysuria, abnormal vaginal discharge or bleeding. 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 Paternal Grandmother Heart attack Social History Housing: House Alcohol intake: current Alcohol intake frequency: holidays/special occasions only Patient Tobacco Use Status: Never used Tobacco e-Cigarette/Vaping Use: Former Use Second Hand Smoke Exposure: No service: No Current occupational status: employed Current occupational exposures/hazards: No Cognitive needs: No Hearing needs: No Vision needs: No Female Reproductive History Menstrual Age of Menarche: 12 Questionnaire PHQ-9 Over the last 2 weeks, how often have you been bothered by any of the following problems? 1. Little interest or pleasure in doing things: not at all 2. Feeling down, depressed, or hopeless: several days 3. Trouble falling or staying asleep, or sleeping too much: not at all 4. Feeling tired or having little energy: more than half the days 5. Poor appetite or overeating: several days 6. Feeling bad about yourself - or that you are a failure or have let yourself or your family down: several days 7. Trouble concentrating on things, such as reading the newspaper or watching television: more than half the days 8. Moving or speaking so slowly that other people could have noticed. Or the opposite - being so fidgety or restless that you have been moving around a lot more than usual: not at all 9. Thoughts that you would be better off or of hurting yourself in some way: not at all Total score: 7 Depression Screening Interpretation: Positive Depression Screening Follow-up: Follow-up Visit Requested and Declines treatment Depression Screening Done: Yes 61085 - PHQ-9 Billing: Yes Source: Developed by Drs. Giuseppe Quispe, Rose Cross, Alex Schulz and colleagues, with an educational ann marie from [employer]. Thrive Questionnaire Date Thrive assessed: 11/29/23 I am a: Patient What is your living situation today?: I have a steady place to live Within the past 12 months, did the food you bought not last and you didn't have the money to get more?: Sometimes True Within the past 12 months, did you worry whether your food would run out before you got money to buy more?: Sometimes True Do you have trouble paying for medicines?: No Do you have trouble getting transportation to medical appointments?: No Do you have trouble paying your heating and electricity bill?: No Do you have trouble taking care of your child, family member or friend?: No Do you have trouble with day-to-day activities such as bathing, preparing meals, shopping, managing finances, etc.?: No Are you currently unemployed and looking for a job?: No Are you interested in more education?: No Please select the resources that you would like help with: None Currently or been in a relationship where the following occur: No concerns reported THRIVE Score: 2 AUDIT C Alcohol Use Questionnaire (AUDIT-C) 1. How often do you have a drink containing alcohol?: Monthly or less 2. How many drinks containing alcohol do you have on a typical day when you are drinking?: 1 or 2 3. How often do you have six or more drinks on one occasion?: Never Total Score: 1 Score Reviewed/Action Taken: Yes TANMAY-7 AMB Questionnaire TANMAY-7 Date TANMAY - 7 assessed: 11/29/23 Feeling nervous, anxious, or on edge: 1 = Several days Not being able to stop or control worryin = Not at all Worrying too much about different things: 1 = Several days Trouble relaxin = Not at all Being so restless that it is hard to sit still: 0 = Not at all Becoming easily annoyed or irritable: 1 = Several days Feeling afraid as if something awful might happen: 0 = Not at all Total TANMAY-7 score (0-4 normal; 5-9 mild; 10-14 moderate; 15-21 severe): 3 Source: Developed by Drs. Giuseppe Quispe, Rose Cross, Alex Schulz and colleagues, with an educational ann marie from [employer]. TANMAY-7 Assessment Billing TANMAY-7 Assessment Tool: TANMAY-7 Assessment 06208 Physical exam (Primary Care) Tobacco/Smoking Status: Tobacco use Status Tobacco use date assessed 09/27/23 11/29/23 08:07 Patient Tobacco Use Status Never used Tobacco 11/29/23 08:07 e-Cigarette/Vaping Use Former Use 11/29/23 08:07 PHQ-9: PHQ-9 Score PHQ-9: Total score 7 11/29/23 08:07 Depression Screening Interpretation: Positive Depression Screening Follow-up: Follow-up Visit Requested and Declines treatment Thrive Assessment: Date of Thrive Assessment Date Thrive assessed 09/27/23 11/29/23 08:07 Currently or been in a relationship where the following occur: No concerns reported Const Orientation/consciousness: patient oriented x3 HENMT Ears: hearing grossly normal bilaterally and TM's normal bilaterally General nose exam: No nasal polyps present Face and sinus: Yes sinuses nontender Mouth: Normal oral and palatal mucosa present Eyes Pupils: Equal, round and reactive pupils present EOM: EOMs intact bilaterally Neck Neck: Yes full ROM and Yes no lymphadenopathy Thyroid: Thyroid normal Chest Chest palpation & inspection: normal inspection of the chest Resp Auscultation: clear to auscultation bilaterally Cardio Rate: regular rate Rhythm: regular rhythm Heart sounds: S1 normal heart sound present and S2 normal heart sound present Peripheral pulses: Peripheral pulses 2+ throughout GI Other: Soft, nontender Auscultation: normal bowel sounds Rectal Exam - Female: deferred General: Yes no CVA tenderness Back/Spine/Pelvis Other: Nontender Back: no CVA tenderness Skin General skin exam: no rashes or lesions noted Neuro General: patient oriented x3, gait normal, CN's II-XI intact bilaterally and deep tendon reflexes 2+ bilaterally Cranial nerves: Yes Equal, round and reactive pupils present Motor exam (neuro): 5/5 motor strength present throughout Sensory Exam: double simultaneous stimulation for sensation normal Coordination: [id number] test normal and Romberg test negative Extrem General: Yes normal to inspection and Yes full ROM Psych Affect: normal affect Attitude: cooperative Thought process: Normal thought process present Thought content: Normal thought content present Insight: Good insight present (Psych) Judgement: Good judgement present (Psych) Results Reviewed Results Reviewed: Laboratory Tests 11/26/23 09:59 WBC 6.2 RBC 4.45 Hgb 12.2 Hct 38.6 MCV 86.7 MCH 27.4 MCHC 31.6 Plt Count 252 Sodium 140 Potassium 4.1 Chloride 108 Carbon Dioxide 25 Anion Gap 11 L BUN 9 Creatinine 0.77 Estimated GFR > 60 Fasting Glucose 90 Calcium 9.2 Total Bilirubin 0.4 AST 26 ALT 36 H Alkaline Phosphatase 82 Triglycerides 49 Cholesterol 178 LDL Cholesterol, Calc 106 H HDL Cholesterol 63 TSH 0.84 Hep Bs Antigen Negative Hep Bs Antibody NONREACTIVE Hep B Core Total Ab Nonreactive Hepatitis C Ab (EIA) Nonreactive HIV 1&2 Ab/P24 Ag 4thGn Nonreactive Coding Level of Care Code Est Pt Level 4 (24441) Est Pt Prev Care 18-39y(21733) Diagnoses Routine general medical examination at a health care facility Z00.00 Polyarthralgia M25.50 Elevated C-reactive protein R79.82 Elevated liver enzymes R74.8 Microscopic hematuria R31.29 Painful breasts N64.4 Frequently sick R68.89 POTS (postural orthostatic tachycardia syndrome) G90.A Pure hypercholesterolemia E78.00 Hyperlipidemia type: pure hypercholesterolemia Additional Codes TANMAY-7 Assessment Billing - TANMAY-7 Assessment Tool: TANMAY-7 Assessment 72381 ([id number]) Assessment & Plan Assessment & Plan (1) Routine general medical examination at a health care facility: Code(s): Z00.00 - Encounter for general adult medical examination without abnormal findings Plan: Health maintenance reviewed. Labs reviewed. (2) Polyarthralgia: Code(s): M25.50 - Pain in unspecified joint Category: Medical Plan: Referral to rheumatology. (3) Elevated C-reactive protein: Code(s): R79.82 - Elevated C-reactive protein (CRP) Category: Medical Plan: Reviewed elevated CRP. Continue follow up with Cardiology and referral to rheumatology. (4) Elevated liver enzymes: Code(s): R74.8 - Abnormal levels of other serum enzymes Category: Medical Plan: Ultrasound ordered. We will follow up pending test results. (5) Microscopic hematuria: Code(s): R31.29 - Other microscopic hematuria Category: Medical Plan: UA ordered. (6) Painful breasts: Code(s): N64.4 - Mastodynia Category: Medical Plan: lmp 2 weeks ago. u/s and mammogram ordered. Advised to follow up with her religion teacher. (7) Frequently sick: Code(s): R68.89 - Other general symptoms and signs Category: Medical Plan: Has an appointment with Allergy and immunology (8) POTS (postural orthostatic tachycardia syndrome): Code(s): G90.A - Postural orthostatic tachycardia syndrome [POTS] Category: Medical Plan: Follows with [facility]. (9) Hyperlipidemia: Code(s): E78.5 - Hyperlipidemia, unspecified Category: Medical Qualifiers: Hyperlipidemia type: pure hypercholesterolemia Qualified Code(s): E78.00 - Pure hypercholesterolemia, unspecified Plan: Reviewed last lipids. Continue Lipitor. Plan Short term follow up with PCP. Sooner if needed. Patient understands and agrees with the plan. Orders: Orders US abdomen complete Today R74.8 - Abnormal levels of other serum enzymes UA CC w/rflx Micro + Cult Today M25.50 - Pain in unspecified joint, R31.29 - Other microscopic hematuria, R74.8 - Abnormal levels of other serum enzymes, R79.82 - Elevated C-reactive protein (CRP), Z13.220 - Encounter for screening for lipoid disorders Rheumatoid Factor Today M25.50 - Pain in unspecified joint, R31.29 - Other microscopic hematuria, R74.8 - Abnormal levels of other serum enzymes, R79.82 - Elevated C-reactive protein (CRP) MM diagnostic mammo BI Today N64.4 - Mastodynia US breast RT complete Today N64.4 - Mastodynia Lyme IgG/IgM w/reflex to WB Today M25.50 - Pain in unspecified joint, R31.29 - Other microscopic hematuria, R74.8 - Abnormal levels of other serum enzymes, R79.82 - Elevated C-reactive protein (CRP) US breast LT complete Today N64.4 - Mastodynia Referrals Rheumatology Referral M25.50 - Pain in unspecified joint, R79.82 - Elevated C- reactive protein (CRP) Patient Instructions: Go to lab for blood work and repeat urine ultrasound of abdomen for elevated lfts ref to rheumatology for joint pains and elevated inflammatory markers u/s and mammogram for painful breasts ordered
[2023-11-29 08:09] VITALS: BP 100/66; PULSE 71; O2SAT 99; BMI 31.4
== END 2023-11-29 08:41 | disposition home or self-care (01) ==
PROVIDERS: PCP Family Medicine; Visit Provider Physician Assistant
DX: Z00.00 Encounter for general adult medical examination without abnormal findings (principal); R31.29 Other microscopic hematuria; G90.A Postural orthostatic tachycardia syndrome [POTS]; M25.50 Pain in unspecified joint; R79.82 Elevated C-reactive protein (CRP); R74.8 Abnormal levels of other serum enzymes; N64.4 Mastodynia; R68.89 Other general symptoms and signs; E78.00 Pure hypercholesterolemia, unspecified

== ENCOUNTER → 2023-11-29 08:02 | Outpatient (BNVA) | payer OTHER, SELFPAY | PROVIDERS: PCP Family Medicine; Visit Provider Physician Assistant | DX: Z00.01 Encounter for general adult medical examination with abnormal findings (principal); M25.50 Pain in unspecified joint; R79.82 Elevated C-reactive protein (CRP); R74.8 Abnormal levels of other serum enzymes; R31.29 Other microscopic hematuria; N64.4 Mastodynia; R68.89 Other general symptoms and signs; G90.A Postural orthostatic tachycardia syndrome [POTS]; E78.00 Pure hypercholesterolemia, unspecified; Z79.899 Other long term (current) drug therapy | CPT/HCPCS: 96127 ==

== ENCOUNTER 2023-12-05 12:46 | Outpatient (REF) | payer OTHER, SELFPAY ==
--- NOTE | ~2023-12-05 | US_ITS ---
EXAMINATION: US BREAST, DIAGNOSTIC BILATERAL CLINICAL INFORMATION: 23-year-old female, bilateral diffuse breast pain x2 months, no specific areas specified. COMPARISON: None. Baseline examination. TECHNIQUE: High-resolution grayscale sonography of the bilateral breasts was performed by a technologist with a high frequency linear transducer following a standardized protocol. All 4 quadrants of each breast including retroareolar areas were imaged . FINDINGS: LEFT BREAST: No mass, area of architectural distortion, complex cyst or other sonographically suspicious lesion is identified. No abnormal shadowing present. RIGHT BREAST: No mass, area of architectural distortion, complex cyst or other sonographically suspicious lesion is identified. No abnormal shadowing present. US/US breast BI limited mamm only IMPRESSION: No sonographic evidence of malignancy in either breast. Recommend clinical management of follow-up of the patient's symptomatology. Otherwise, recommend mammography starting at age 40, or sooner if clinically indicated. ASSESSMENT: Left breast: BI-RADS 1-Negative. Right breast: BI-RADS 1-Negative RECOMMENDATIONS: Clinical management and follow-up. Electronically signed by: Colton Dumont MD 12/20/2023 09:10 AM EDT
== END 2023-12-05 12:47 | disposition home or self-care (01) ==
LOC: HO.MAMMO 12:46
PROVIDERS: PCP Family Medicine; Visit Provider Physician Assistant
DX: N64.4 Mastodynia (principal)
CPT/HCPCS: 76642

== ENCOUNTER → 2023-12-05 13:00 | Outpatient (BNV) | payer OTHER, SELFPAY | PROVIDERS: PCP Family Medicine; Visit Provider Radiology Diagnostic Radiology | DX: N64.4 Mastodynia (principal) | CPT/HCPCS: 76642 ==

== ENCOUNTER 2023-12-07 08:24 | Outpatient (REF) | payer OTHER, SELFPAY ==
--- NOTE | ~2023-12-07 | US_ITS ---
EXAMINATION: US ABDOMEN COMPLETE CLINICAL INFORMATION: Abnormal levels of other serum enzymes. COMPARISON: None available. TECHNIQUE: Real-time imaging of the abdominal viscera. Technically limited study secondary to bowel gas. FINDINGS: PANCREAS: The visualized portions of the pancreas are unremarkable but a large portion of the gland is obscured by bowel gas. ABDOMINAL AORTA: The proximal, mid, and distal segments are normal in caliber. INFERIOR VENA CAVA: Visualized portions are normal. LIVER: The liver is normal in size. The liver contour is normal. There is mildly increased liver parenchymal echogenicity suggesting hepatic steatosis. No focal hepatic lesion. There is no intrahepatic biliary duct dilatation seen. GALLBLADDER: Normal. The gallbladder is physiologically distended without evidence of stones, sludge, polyps, wall thickening or pericholecystic fluid. COMMON BILE DUCT: Normal in caliber measuring 0.3 cm in diameter. RIGHT KIDNEY: Normal. No hydronephrosis. No renal calculi or focal parenchymal lesions. The kidney measures 10.4 cm in maximum dimension. LEFT KIDNEY: Normal. No hydronephrosis. No renal calculi or focal parenchymal lesions. The kidney measures 10.5 cm in maximum dimension. SPLEEN: Normal. The spleen measures 11.4 cm in maximum dimension. FREE FLUID: None. US/US abdomen complete IMPRESSION: Mildly increased hepatic echogenicity suggesting hepatic steatosis. Electronically signed by: Rocky Plummer MD 02/01/2024 01:40 PM EST
== END 2023-12-07 08:25 | disposition home or self-care (01) ==
LOC: HO.US 08:24
PROVIDERS: PCP Family Medicine; Visit Provider Physician Assistant
DX: R74.8 Abnormal levels of other serum enzymes (principal)
CPT/HCPCS: 76700

== ENCOUNTER 2024-01-08 08:31 | Outpatient (AMB) | payer OTHER, SELFPAY ==
--- NOTE | 2024-01-08 08:38 | A.OFFVIS_ITS ---
Vital Signs 01/08/24 08:41 Height 5 ft 3 in Weight 178 lb 9.191 oz BMI 31.6 BP 115/62 Blood Pressure Location Rt brachial Position Sitting Respiration 16 Pulse 66 Pulse Source Pulse Oximeter Pulse Oximetry (%) 97 Oxygen Delivery Method Room Air Intake Visit Reasons: Joint Pain/Elev CRP/CM Intake Note: Patient presents for joint pain. Allergies shellfish derived [SHELLFISH DERIVED] Allergy (Severe, Verified 01/08/24 08:40) hives SEAFOOD Allergy (Severe, Uncoded 11/29/23 08:07) swelling GRASS Allergy (Intermediate, Uncoded 11/29/23 08:07) Rash SEASONAL ALLERGIES Allergy (Mild, Uncoded 11/29/23 08:07) sneezing Medication List - Last Reconciled 01/08/24 by Dariel Castanon MD atorvastatin 10 mg PO BEDTIME erenumab-aooe (Aimovig Autoinjector) 140 mg subcut .monthly 30 days ibuprofen 600 mg PO Q6H PRN pyridostigmine bromide 60 mg PO BID sumatriptan succinate 100 mg PO DAILY HPI Comments Details: This is a 23-year-old female who presents for evaluation of an elevated high sensitivity CRP. She stated that back in January of 2023 she had an episode of sore throat, fever up to 102, associated with shortness of breath generalized weakness and body aches for 2 weeks. Since then she has had 2 more episodes, the last episode was back in June through August. It lasted approximately 2 months. She went to the emergency room and was discharged. She was not admitted. She stated that no specific diagnosis was given. One of her episodes she was prescribed antibiotics. Antibiotics did not help much. She denied any painful or swollen joints during those episodes. Denied any skin rashes. The fevers were random. They were not particularly worse at a specific time of day. She denies any history of DVT/PE. She is unaware of any family history of an autoimmune rheumatic disease. [facility] Medical History High cholesterol Motion sickness Migraine Overweight (BMI 25.0-29.9) Paroxysmal sinus tachycardia Surgical History No pertinent past surgical history Family History Mother Cancer Cervical cancer Father No problems noted. Paternal Grandmother Heart attack Social History Housing: House Alcohol intake: current Alcohol intake frequency: holidays/special occasions only Patient Tobacco Use Status: Never used Tobacco e-Cigarette/Vaping Use: Former Use Second Hand Smoke Exposure: No service: No Current occupational status: employed Current occupational exposures/hazards: No Cognitive needs: No Hearing needs: No Vision needs: No Female Reproductive History Menstrual Age of Menarche: 12 Total pregnancies: 0 Review of Systems Musc Denies arthralgias, Denies joint swelling and Denies stiffness Skin/Breast Denies rash Physical Exam Vital Signs: Last Vital Signs Pulse 66 01/08/24 08:41 Resp 16 01/08/24 08:41 BP 115/62 01/08/24 08:41 Pulse Ox 97 01/08/24 08:41 Oxygen Delivery Method Room Air 01/08/24 08:41 BMI result Body Mass Index 31.6 Const General: cooperative, healthy appearing and comfortable Nutritional Appearance: obese Orientation/consciousness: patient oriented x3 Limitations: no limitations HEENT Other: Denies oral ulcers Head: Yes normocephalic and Yes atraumatic Mouth: moist mucous membranes Resp Effort & Inspection: normal respiratory effort and able to speak in complete sentences Auscultation: clear to auscultation bilaterally Cardio Rate: regular rate Rhythm: regular rhythm Neuro General: patient oriented x3 Extrem Other: No active synovitis Normal nailfold capillaroscopy Assessment & Plan Assessment & Plan (1) Elevated C-reactive protein: Code(s): R79.82 - Elevated C-reactive protein (CRP) Category: Medical Plan: This is a 23-year-old female who presents for evaluation of elevated high sensitivity CRP. This was ordered in the context of repeated episodes of fevers, fatigue, shortness of breath, sore throat. These episode lasted 2-8 weeks. I will order comprehensive serology to screen for underlying autoimmune rheumatic disease. I suggest evaluation by ENT Follow-up in 4 weeks Plan I spent 45 minutes reviewing patient's chart, evaluating patient, ordering diagnostic workup, counseling patient and documenting in the chart Orders: Orders C Reactive Protein Today M32.9 - Systemic lupus erythematosus, unspecified Immunofixation Pnl, Serum Today M32.9 - Systemic lupus erythematosus, unspecified Protein Electrophoresis, Serum Today M32.9 - Systemic lupus erythematosus, unspecified Anti Extractable Nuclear Ag Today M32.9 - Systemic lupus erythematosus, unspecified Complement C4 Today M32.9 - Systemic lupus erythematosus, unspecified Sjogren's Antibodies Today M32.9 - Systemic lupus erythematosus, unspecified Complete Blood Count Auto Diff Today M32.9 - Systemic lupus erythematosus, unspecified Comprehensive Met. Panel Today M32.9 - Systemic lupus erythematosus, unspecified Hepatitis A,B,C Profile Today Z11.59 - Encounter for screening for other viral diseases ANCA Vasculitides Today I77.6 - Arteritis, unspecified Anti DNA DS Antibody Today M32.9 - Systemic lupus erythematosus, unspecified Complement C3 Today M32.9 - Systemic lupus erythematosus, unspecified Rheumatoid Factor Today M32.9 - Systemic lupus erythematosus, unspecified Cyclic Citrullinated Peptide Today M32.9 - Systemic lupus erythematosus, unspecified HLA B27 Today M45.9 - Ankylosing spondylitis of unspecified sites in spine Coding Level of Care Code New Pt Level 4 (46438) Diagnoses Elevated C-reactive protein R79.82
[2024-01-08 08:41] VITALS: BP 115/62; PULSE 66; RESP 16; O2SAT 97; BMI 31.6
== END 2024-01-08 09:09 | disposition home or self-care (01) ==
PROVIDERS: PCP Family Medicine; Visit Provider Student in an Organized Health Care Education/Training Program
DX: R79.82 Elevated C-reactive protein (CRP) (principal)
CPT/HCPCS: 99204

== ENCOUNTER 2024-01-08 08:31 | Outpatient (REF) | payer OTHER, SELFPAY | END 2024-01-08 08:32 | disposition home or self-care (01) | LOC: HO.LNP 08:31 | PROVIDERS: PCP Family Medicine; Visit Provider Student in an Organized Health Care Education/Training Program | DX: Z01.419 Encounter for gynecological examination (general) (routine) without abnormal findings (principal) | CPT/HCPCS: 88175 ==

== ENCOUNTER 2024-01-08 09:13 | Outpatient (REF) | payer OTHER, SELFPAY ==
[2024-01-08 11:07] LABS: MANUAL DIFF FLAG NO
[2024-01-08 11:09] LABS: Basophils Absolute Auto 0.1 X10*3/uL (0.0-0.2); Basophils Percent Auto 0.8 % (0-2); Eosinophils Absolute Auto 0.1 X10*3/uL (0.0-0.4); Eosinophils Percent Auto 1.8 % (0-4); Hematocrit 39.9 % (37.0-47.0); Hemoglobin 12.6 g/dl (12.0-16.0); Imm Gran Abs Auto 0.02 X10*3/uL (0.00-0.03); Imm Gran Pct Auto 0.3 % (0.0-0.4); Lymphocytes Absolute Auto 2.7 X10*3/uL (1.2-4.9); Lymphocytes Percent Auto 40.7 % (20-40); Mean Corpuscular HGB Conc 31.6 g/dl (31.0-35.0); Mean Corpuscular Hemoglobin 27.1 pg (27.0-33.0); Mean Corpuscular Volume 85.8 fL (80.0-98.0); Mean Platelet Volume 10.8 fL (9.4-12.3); Monocytes Absolute Auto 0.6 X10*3/uL (0.1-1.2); Monocytes Percent Auto 9.1 % (2-11); Neutrophils Absolute Auto 3.1 x10*3/uL (2.0-8.3); Neutrophils Percent Auto 47.3 % (45-73); Platelet Count 289 X10*3/uL (160-400); Red Blood Count 4.65 X10*6/uL (4.20-5.50); Red Cell Distribution Width 12.9 % (11.0-16.0); White Blood Count 6.6 X10*3/uL (4.8-10.8)
[2024-01-08 11:23] LABS: Alanine Aminotransferase 34 U/L (0-31); Albumin Level 4.1 g/dL (3.5-5.0); Alkaline Phosphatase 94 U/L (39-117); Anion Gap 10 (12-20); Aspartate Amino Transferase 24 U/L (5-31); Bilirubin Total 0.4 mg/dL (0.0-1.0); Blood Urea Nitrogen 12 mg/dL (9-16); C Reactive Protein 1.52 mg/dL (< or = 0.50); Carbon Dioxide 29 mmol/L (22-29); Chloride 106 mmol/L (96-108); Estimated Glomerular Filt Rate > 60; Glucose Random 105 mg/dL (60-115); Potassium 4.4 mmol/L (3.3-5.1); Sodium 141 mmol/L (135-145); Total Protein 6.8 g/dL (6.5-8.0)
[2024-01-08 11:50] LABS: Rheumatoid Factor < 13.0 IU/mL (<15.0)
[2024-01-08 11:54] LABS: HBS Num1 0.08 mIU/mL (0-7.99); HBc Num1 0.15 S/CO (0.00-0.79); HBsAGNum1 0.42 S/CO (0.00-0.99); Hepatitis A Antibody IgM 0.25 Index (0-0.79); Hepatitis B Core Antibody Nonreactive (Nonreactive); Hepatitis B Surface Antigen Negative (Negative); ~HepC Num1 0.09 S/CO (0.00-0.79); ~Hepatitis A Antibody IgM Nonreactive (Nonreactive); ~Hepatitis B Surface Antibody NONREACTIVE (Nonreactive); ~Hepatitis C Antibody Nonreactive (Nonreactive)
[2024-01-09 10:49] LABS: Complement C3 182 mg/dL (83-193)
[2024-01-10 15:44] LABS: IgA 119 mg/dL (47-310); IgG 930 mg/dL (600-1640); IgM 61 mg/dL (50-300)
[2024-01-10 17:18] LABS: Anti DNA DS Antibody <1 IU/mL; Antibody to SS-A Antigen <1.0 NEG AI (<1.0 NEG); Antibody to SS-B Antigen <1.0 NEG AI (<1.0 NEG); Myeloperoxidase Antibody <1.0 AI; Proteinase 3 PR3 Antibodies <1.0 AI; SM/Ribonucleoprotein Ab <1.0 NEG AI (<1.0 NEG); Smith Protein <1.0 NEG AI (<1.0 NEG)
[2024-01-10 20:30] LABS: Cyclic Citrullinated Peptide <16 UNITS
[2024-01-10 21:58] LABS: Prot Elec - Albumin 3.9 g/dL (3.8-4.8); Prot Elec - Alpha1 0.3 g/dL (0.2-0.3); Prot Elec - Alpha2 0.7 g/dL (0.5-0.9); Prot Elec - Beta 1 0.5 g/dL (0.4-0.6); Prot Elec - Beta 2 0.3 g/dL (0.2-0.5); Prot Elec - Gamma 0.7 g/dL (0.8-1.7); Prot Elec - Total Protein 6.5 g/dL (6.1-8.1)
== END 2024-01-08 09:14 | disposition home or self-care (01) ==
LOC: HO.10HDL 09:13
PROVIDERS: Visit Provider Student in an Organized Health Care Education/Training Program
DX: N87.0 Mild cervical dysplasia (principal); M32.9 Systemic lupus erythematosus, unspecified; Z11.59 Encounter for screening for other viral diseases; I77.6 Arteritis, unspecified
CPT/HCPCS: 36415; 80053; 82784; 84165; 85025; 86021; 86140; 86160; 86200; 86225; 86235; 86334; 86431; 86704; 86706; 86709; 86803; 87340

== ENCOUNTER 2024-01-08 15:08 | Outpatient (AMB) | payer OTHER, SELFPAY ==
--- NOTE | 2024-01-08 15:18 | A.OFFVIS_ITS ---
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 Last Pap smear was negative/HPV E6 E7 positive, colpo biopsy ECC was MANDY 1. This was preceded by ascus/HPV positive in 2021 [facility] Medical History HPV in female High cholesterol Motion sickness Migraine Overweight (BMI 25.0-29.9) Paroxysmal sinus tachycardia Surgical History No pertinent past surgical history Family History Mother Cancer Cervical cancer Father No problems noted. Paternal Grandmother Heart attack Social History Housing: House Alcohol intake: current Alcohol intake frequency: holidays/special occasions only Patient Tobacco Use Status: Never used Tobacco e-Cigarette/Vaping Use: Former Use Second Hand Smoke Exposure: No service: No Current occupational status: employed Current occupational exposures/hazards: No Cognitive needs: No Hearing needs: No Vision needs: No Female Reproductive History Menstrual Age of Menarche: 12 Duration of menses: 3-5 days Date of last menstrual period: 01/02/24 Review of Systems Const All systems reviewed & are unremarkable except as noted in HPI and below Card Reports as per HPI Resp Reports as per HPI GI Reports as per HPI and Reports no additional complaints Reports as per HPI Physical Exam Const General: cooperative, healthy appearing and comfortable Chest Chest palpation & inspection: normal inspection of the chest and normal palpation of entire chest wall Breast/axilla inspection: normal inspection of the breasts and normal inspection of the axillae Breast/axilla palpation: normal palpation of the breasts, normal palpation of the axillae and no axillary lymphadenopathy Resp Effort & Inspection: normal respiratory effort Auscultation: clear to auscultation bilaterally Percussion: percussion normal Cardio Palpation: normal PMI Rate: regular rate Rhythm: regular rhythm Heart sounds: no murmurs and no rubs Peripheral pulses: Peripheral pulses 2+ throughout GI Inspection: Yes normal to inspection Palpation (GI): Soft to palpation, nontender, no guarding, not rigid and No hep atosplenomegaly present Percussion: Yes normal to percussion Auscultation: normal bowel sounds Rectal Exam - Female: deferred General: Yes bladder normal to palpation External Female Exam: No lesion Speculum Exam - Vagina: normal appearance of the vagina, normal palpation, normal vaginal discharge and not erythematous Speculum Exam - Cervix: normal appearance of the cervix and normal palpation Bimanual exam- vagina & uterus: normal bimanual exam, normal palpation, uterine size normal, bladder normal to palpation, consistency normal and normal palpation Bimanual Exam- Adnexa, other: normal adnexae, no masses and no tenderness Assessment & Plan Assessment & Plan (1) Dysplasia of cervix, low grade (MANDY 1): Code(s): N87.0 - Mild cervical dysplasia Category: Medical Plan: GC/CT taken. Pap smear taken. (2) Well woman exam: Code(s): Z01.419 - Encounter for gynecological examination (general) (routine) without abnormal findings Category: Medical Plan: Pap smear done. The patient was instructed to perform monthly self-breast exams and to schedule an annual exam in a year; All questions answered and the patient verbalized understanding. Instructed the patient to schedule annual exam in a year Coding Level of Care Code Est Pt Prev Care 18-39y(73174) Diagnoses Dysplasia of cervix, low grade (MANDY 1) N87.0 Well woman exam Z01.419
== END 2024-01-09 08:37 | disposition home or self-care (01) ==
PROVIDERS: PCP Family Medicine; Visit Provider Obstetrics & Gynecology
DX: Z01.419 Encounter for gynecological examination (general) (routine) without abnormal findings (principal); N87.0 Mild cervical dysplasia
CPT/HCPCS: 99395

== ENCOUNTER 2024-02-04 09:20 | Outpatient (AMB) | payer OTHER, SELFPAY ==
--- NOTE | 2024-02-04 09:39 | MHC.OFFVIS ---
Vital Signs 02/04/24 09:40 BP 108/66 Intake Visit Reasons: Colposcopy Customer Development Manager: Customer Development Manager Present (Bianka) Accompanied by: Self / Same As Patient Allergies shellfish derived [SHELLFISH DERIVED] Allergy (Severe, Verified 02/04/24 09:41) hives SEAFOOD Allergy (Severe, Uncoded 11/29/23 08:07) swelling GRASS Allergy (Intermediate, Uncoded 11/29/23 08:07) Rash SEASONAL ALLERGIES Allergy (Mild, Uncoded 11/29/23 08:07) sneezing HPI Comments Details: Presenting for follow-up regarding abnormal Pap smear. The patient had the following Pap smears: 2021 ascus/HPV positive 12/18 Negative Pap, HPV E6 E7 positive, colpo biopsy ECC MANDY 1 01/19 ascus HPV negative The patient is presenting c/o inability to conceive over the last year in spite of frequent adequate intercourse. Her periods are regular and non-painful, no other complaints. [facility] Medical History HPV in female High cholesterol Motion sickness Migraine Overweight (BMI 25.0-29.9) Paroxysmal sinus tachycardia Surgical History No pertinent past surgical history Family History Mother Cancer Cervical cancer Father No problems noted. Paternal Grandmother Heart attack Social History Housing: House Alcohol intake: current Alcohol intake frequency: holidays/special occasions only Patient Tobacco Use Status: Never used Tobacco e-Cigarette/Vaping Use: Former Use Second Hand Smoke Exposure: No service: No Current occupational status: employed Current occupational exposures/hazards: No Cognitive needs: No Hearing needs: No Vision needs: No Female Reproductive History Menstrual Age of Menarche: 12 Review of Systems Const All systems reviewed & are unremarkable except as noted in HPI and below Reports as per HPI and Reports no additional complaints GI Reports no additional complaints Reports no additional complaints Physical Exam Vital Signs: Last Vital Signs BP 108/66 02/04/24 09:40 Assessment & Plan Assessment & Plan (1) ASCUS of cervix with negative high risk HPV: Comment: Preceded by biopsy-proven MANDY 1 in 12/18 Code(s): R87.610 - Atypical squamous cells of undetermined significance on cytologic smear of cervix (ASC-US) Category: Medical Plan: Discussed with the patient the ASCCP guidelines managing biopsy proven MANDY 1 between the age of 21-24 followed by ascus HPV negative, recommendation is to repeat cytology at 12 months. Instructions given the patient to schedule an appointment for a Pap smear in a year. All questions answered, the patient verbalized understanding (2) Infertility, female: Code(s): N97.9 - Female infertility, unspecified Category: Medical Plan: Recommended the patient LH ovulation test x3 months, semen analysis, order given to the patient for her partner, scheduled a it HSG. All questions answered, the patient verbalized understanding Orders: Orders [place] hysterosalpingography Today N97.9 - Female infertility, unspecified Coding Level of Care Code Est Pt Level 3 (48716) Diagnoses ASCUS of cervix with negative high risk HPV R87.610 Infertility, female N97.9
[2024-02-04 09:40] VITALS: BP 108/66
== END 2024-02-04 10:15 | disposition home or self-care (01) ==
PROVIDERS: PCP Family Medicine; Visit Provider Obstetrics & Gynecology
DX: R87.610 Atypical squamous cells of undetermined significance on cytologic smear of cervix (ASC-US) (principal); N97.9 Female infertility, unspecified
CPT/HCPCS: 99213

== ENCOUNTER 2024-04-07 08:44 | Outpatient (AMB) | payer OTHER, SELFPAY ==
--- NOTE | 2024-04-07 08:44 | MHC.OFFVIS ---
Intake Visit Reasons: control follow up Allergies shellfish derived [SHELLFISH DERIVED] Allergy (Severe, Verified 02/04/24 09:41) hives SEAFOOD Allergy (Severe, Uncoded 11/29/23 08:07) swelling GRASS Allergy (Intermediate, Uncoded 11/29/23 08:07) Rash SEASONAL ALLERGIES Allergy (Mild, Uncoded 11/29/23 08:07) sneezing HPI Comments Details: The patient is scheduled a telehealth visit to discuss different options of control. Restarted control pills since she had 2 boxes left from previous prescriptions. [facility] Medical History HPV in female High cholesterol Motion sickness Migraine Overweight (BMI 25.0-29.9) Paroxysmal sinus tachycardia Surgical History No pertinent past surgical history Family History Mother Cancer Cervical cancer Father No problems noted. Paternal Grandmother Heart attack Social History Housing: House Alcohol intake: current Alcohol intake frequency: holidays/special occasions only Patient Tobacco Use Status: Never used Tobacco e-Cigarette/Vaping Use: Former Use Second Hand Smoke Exposure: No service: No Current occupational status: employed Current occupational exposures/hazards: No Cognitive needs: No Hearing needs: No Vision needs: No Female Reproductive History Menstrual Age of Menarche: 12 Review of Systems Const All systems reviewed & are unremarkable except as noted in HPI and below Reports as per HPI and Reports no additional complaints GI Reports no additional complaints Reports no additional complaints Telehealth Telehealth Telehealth Platform: Telephone Location of provider rendering services: practice address Location of patient: address on file Patient Identification confirmed using: Name, : Yes Telehealth method: video Patient verbally consented to treatment: Yes Patient verbally consented to billing insurance company: Yes Patient informed of any privacy concerns related to visit: Yes Minutes spent on Phone/Video with Pt.: 10 Assessment & Plan Assessment & Plan (1) Family planning: Code(s): Z30.09 - Encounter for other general counseling and advice on contraception Category: Social Hx Plan: Discussed with the patient the different options of control including control pills/Nuvaring (contraindicated in patient with migraine) , DMPA, different types of IUD ?s. All the pros, cons, risks and benefits of each were discussed with the patient. The patient decided to go ahead with an IUD, so a more detailed discussion was carried on including types (Progesterone, Copper), mechanism of action, risks (infection, uterine perforation, failure with ectopic , septic AB, dysmenorrhea with Paraguard, others) benefits (efficient contraceptive method, hypo menorrhea with Progesterone IUD, others) GC/CG will be taken next visit and the patient was asked to call day one of next cycle for Mirena IUD insertion. I spent a total of 20 minutes reviewing the chart, talking to the patient via video and documenting in the medical record. Coding Level of Care Code Tele Est Pt Level 3 (22731) Diagnoses Family planning Z30.09
--- OUTSIDE RECORDS SUMMARY | 2024-04-07 09:06 | XMS_ITS | Clinical Summary ---
Author Organization [facility] Address [address] [place] [address] Phone Care Team Providers Care E Commerce Marketing Manager Name Role Phone Unavailable Primary Care Provider Unavailabl e Allergies Active Allergy Reactions Criticality Noted Date Comments Environmental Postive Skin test/Positive RAST Low 07/22/2017 Trees, mold, grass, leaves, cats and horses. Shellfish Allergy Hives Low Medications EPINEPHrine 0.3 MG/0.3ML injection syringe Inject 0.3 mL into the muscle as needed for anaphylaxis. 1 Active fluticasone (FLONASE) 50 MCG/ACT nasal sprayIndication s:Nasal congestion Administer 1 spray into each nostril daily. 1 Units 5 8 Active Additional Information Patient not taking.Reported on 05/16/2018 LILLOW 0.15-30 MG-MCG per tabletIndicatio ns:Dysmenorrhea TAKE 1 TABLET BY MOUTH EVERY DAY 84 tablet 3 9 Active Active Problems Problem Noted Date Diagnosed Date Anemia due to vitamin B12 deficiency 12/14/2017 Overview (05/21/2018): Vit B12 low as well as ferritin, but not anemic. Patient eats red meat, little dairy. Recommended Folate, Vit B12 and iron rich foods, f/u 1 month Ferritin still low (12) 04/2018 -- recommended iron supplement but not tolerated. Will try introducing other iron rich foods Intolerance to heat 07/22/2017 Overview (08/21/2017): Persists. Anxiety 04/13/2016 Overview (08/21/2017): General but now with some panic episodes related to time in auditoriums and movie theaters. 2018: improved some over time. Has more freedom in life and that seems to have helped. Dysmenorrhea 01/05/2016 Overview (05/24/2017): In 2017 had heavy periods; then in the past couple of months has had longer stretches of bleeding. Denies all SA. Improved/resolved in 2018 on OCP change to [facility] Assessment & Plan (08/21/2017 1:43 PM EDT): Continue with OCP. Working ok. Assessment & Plan (05/24/2017 3:40 PM EDT): Continue current medication. Return at Assessment & Plan (02/23/2017 11:50 AM EST): Will change to [place]. Recheck in 3 months. Allergic rhinitis 03/08/2015 Overview (08/21/2017): No meds. Makes her drowsy and doesn't want nasal spray. RAST Positive for cats, horses, grasses, trees, mold. Had hives and facial swelling in past of unknown origin, responsive to Epi in ER (likely fish intake). Assessment & Plan (08/21/2017 1:57 PM EDT): Will refer to allergy to discuss allergy shots to see if treating allergies would help with HAs. Food allergy 03/08/2015 Overview (08/21/2017): Had hives and facial swelling likely due to fish intake, responsive to Epi in ER Dysthymic disorder 03/08/2015 Overview (08/21/2017): Per [facility] evaluation. R/O Nonverbal learning disorder (referral for neuropsych testing available [facility] - trouble reaching mom to complete it), R/O ADHD predominantly inattentive type. Referred for therapy to [facility] in [place] (walk in intake available). In interview reported that mom has struggled with alochol abuse, as of assessment had been sober for 100 days. Further social hx available in report. 2017: on waiting list for therapist. 2018: refuses to see therapist at this point. Not on any medication. Trial of amitryptiline for GARCIA worsened mood. Headache 03/08/2015 Overview (10/13/2019): Had been taking frequent tylenol/ibuprofen. August 2016: parents took her to ENT w/concern re prior hx of fx, slight deviation of septum, GARCIA's not felt to be related related. 09/19/16 migraine diet advised, increase water intake, and keeping a GARCIA diary 10/22/16: added amitriptyline, ordered MRI Brain, referred for PT 12/13/16: stopped amitriptyline due to decreased sleep, MRI normal, PT for one month did not help, started topiramate 01/2017: seen by neurology: muscle tension and migraine headaches. Stopped topiramate after one week due to side effects, so starting nortriptylene and ibuprofen. 07/2017: not on any meds. 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 They can happen at other times as well. 09/2017: [facility] neurology evaluation - recommended sumatriptan PRN and relaxation techniques 09/2019: Followed by Dr. Aranda, neurology Assessment & Plan (05/18/2018 1:12 PM EDT): Recent headaches may be due to diet/dehydration Monitor diet, eat three or more meals/snacks/day. Keep track of triggers. Stay well hydrated. Contact our office if needing to miss school Assessment & Plan (12/14/2017 11:43 AM EDT): Try ibuprofen if you don't want to go to the ER; if it isn't resolving, I suggest going to the ER for IV treatment of this refractory migraine. Assessment & Plan (05/24/2017 3:39 PM EDT): Continue with current care - stay hydrated, get enough sleep and exercise Assessment & Plan (12/13/2016 11:41 AM EDT): 1. Keep up with regular hydration, exercise, sleep 2. Will start trial of topiramate 25 mg daily, may increase by one tab weekly 3. 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 Continues in 2018 and uses the accommodations. Resolved Problems Problem Noted Date Diagnosed Date Resolved Date Exercise-induced bronchospasm 05/19/2015 08/21/2017 Overview (12/12/2016): Has seen educational institution curator with no diagnosis. No change in 2017 despite stopping inhalers Acne vulgaris 12/11/2014 02/23/2017 Immunizations Immunization Administration Dates Next Due DTaP 10/25/2004, 2,02/13/2001, 001,2000 HPV Vaccine 9 Valent 04/13/2016,09/22/2015 Hep B, ped/adol 05/17/2001,2000,2000 Hib (PRP-T) 08/19/2001, 1,2000, 001 IPV 10/25/2004, 2,2000, 001 MMR 09/01/2005,08/19/2001 Meningococcal Conj (Menactra) MCV4P 02/13/2012 Pneumococcal Conjugate 02/13/2001,2000, Tdap 02/13/2012 Varicella 09/03/2006,12/18/2001 Family History Medical History Relation Name Comments Migraines Father Relation Name Status Comments Father Social History Tobacco Use Types Packs/Day Years Used Date Smoking Tobacco: Never Smokeless Tobacco: Never Alcohol Use Standard Drinks/Week Comments No 0 (1 standard drink = 0.6 oz pur e alcohol) Hunger/Food Answer Date Recorded No 11/22/2019 Stable Housing Answer Date Recorded No 11/22/2019 Transportation Concerns Answer Date Rec orded No 11/22/2019 Hazards in Home Answer Date Recorded No 01/09/2020 Financing Utilities Answer Date Recorde d No 01/09/2020 Safety at Home Answer Date Recorded No 01/09/2020 Outside Support Answer Date Recorded No 01/09/2020 Understanding Health Concerns Answer Da te Recorded No 01/09/2020 Financing Health Concerns Answer Date R ecorded No 01/09/2020 Missing School or Work Answer Date Parish rded No 01/09/2020 Comments No Sex and Gender Information Value Date Recorded Sex Assigned at Not on file Legal Sex Female 9:56 AM EST Gender Identity Not on file Sexual Orientation Not on file Last Filed Vital Signs Vital Sign Reading Time Taken Comments Blood Pressure 117/76 05/16/2018 8:58 AM EDT Pulse 80 05/16/2018 8:58 AM EDT Temperature 36.7 ??C (98.1 ??F) 01/25/2018 11:[address] Respiratory Rate - - Oxygen Saturation 98% 01/25/2018 11:01 AM EST Inhaled Oxygen Concentration - - Weight 57 kg (125 lb 9.6 oz) 12/14/2017 11:19 AM EDT Height 160 cm (5' 3 ) 05/16/2018 8:58 AM EDT Body Mass Index 22.07 12/14/2017 11:19 AM EDT Plan of Treatment Health Maintenance Due Date Last Done Comments HPV Vaccines (3 - 3-dose series) 07/06/2016 04/13/2016, 09/22/2015 Men B Vaccine (1 of 2 - Standard) 2016 DTaP,Tdap,and Td Vaccines (7 - Td or Tdap) 02/12/2022 02/13/2012, 10/25/2004, 12/18/2001, Additional history exists Influenza Vaccines (#1) 2023 COVID-19 Vaccine ( season) 2023 Pneumococcal Vaccine Aged Out 02/13/2001, 2000, 2000 No longer eligible based on patient's age to complete this topic Hepatitis B Vaccines Completed 05/17/2001, 2000, 2000 HIB Vaccines Completed 08/19/2001, 01/26, 2000, Additional history exists IPV Vaccines Completed 10/25/2004, 07/28, 2000, Additional history exists MMR Vaccines Completed 09/01/2005, 08/19/2001 Varicella Vaccines Completed 09/03/2006, 12/18/2001 Meningococcal Vaccine Aged Out 02/13/2012 No edward elmer eligible based on patient's age to complete this topic Hepatitis A Vaccines Aged Out No long er eligible based on patient's age to complete this topic Procedures * Due to [place] [employer] law, this organization might not be sharing sensitive test results. Procedure Name Priority Date/Time Associated Diagnosis Comments CHLAMYDIA TRACHOMATIS, AMPLIFIED Routine 04/14/2016 12:00 AM EST from Last 3 Months or Most Recently Relevant to Health Maintenance Results * Due to [place] [employer] law, this organization might not be sharing sensitive test results. * Chlamydia trachomatis, Amplified (04/14/2016 12:00 AM EST) C.TRACHOMATIS PCR Not Detected CONVERTED LABS Comment: Elena Foster ??04/13/2016 10:42:04 AM > , Urine sample labeled and sent to [facility] Kym Christianson 04/15/2016 03:17:49 PM > Sunita Meade ??04/18/2016 08:52:26 AM > Negative Reason: Received -[facility] Lab Order Child Life Specialist 04/14/2016 Narrative CONVERTED LABS - 04/14/2016 12:00 AM EST Chlamydia trachomatis detection by PCR us Sunita Meade MD LAB BLOOD ORDERABLES Final Re sult CONVERTED LABS from Last 3 Months or Most Recently Relevant to Health Maintenance
--- OUTSIDE RECORDS SUMMARY | 2024-04-07 09:06 | XMS_ITS | Encounter Summary ---
Author Organization [facility] Address [address] [place] [address] Phone Care Team Providers Care Help Desk Rep Name Role Phone Radhames Nathan MD Primary Care Provider [phone] Encounter Details Date Type Department Care Team (Late st Contact Info) Description 10/04/2016 Conversion Encounter [facility] Pediatrics - [address], [address] [place] [address] Sunita Meade MD [address] [place] [address] Social History Tobacco Use Types Packs/Day Years Used Date Smoking Tobacco: Never Assessed Comments Unknown Sex and Gender Information Value Date Recorded Sex Assigned at Not on file Legal Sex Female 9:56 AM EST Gender Identity Not on file Sexual Orientation Not on file documented as of this encounter Plan of Treatment Not on file documented as of this encounter Visit Diagnoses Not on filedocumented in this encounter Care Teams Help Desk Rep Relationship Specialty Start Date End Date Radhames Nathan MD [address] [place] [address] PCP - General Pediatrics 02/01/17 09/14/20 documented as of this encounter
== END 2024-04-07 09:07 | disposition home or self-care (01) ==
LOC: HO.HWS 08:44
PROVIDERS: PCP Family Medicine; Visit Provider Obstetrics & Gynecology
DX: Z30.09 Encounter for other general counseling and advice on contraception (principal)
CPT/HCPCS: 99213

== ENCOUNTER → 2024-04-07 08:44 | Outpatient (BNVA) | payer OTHER, SELFPAY | PROVIDERS: PCP Family Medicine; Visit Provider Obstetrics & Gynecology ==

== ENCOUNTER 2024-04-10 12:58 | Outpatient (AMB) | payer OTHER, SELFPAY ==
--- OUTSIDE RECORDS SUMMARY | 2024-04-10 13:06 | XMS_ITS | Clinical Summary ---
Author Organization [facility] Address [address] [place] [address] Phone Care Team Providers Care Wholesale Representative Name Role Phone Unavailable Primary Care Provider [...] ER Dysthymic disorder 03/08/2015 Overview (08/21/2017): Per [facility] evaluation. R/O Nonverbal learning disorder ([facility]erral [facility] - trouble reaching mom to complete it), R/O ADHD predominantly inattentive type. Referred for therapy to [facility] in [place] (walk in intake available). 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 They can happen at other times as well. 09/2017: [facility] neurology evaluation - recommended sumatriptan PRN and [...] bronchospasm 05/19/2015 08/21/2017 Overview (12/12/2016): Has seen photonics engineering technologist with no diagnosis. No change in 2017 [...] complete this topic Procedures * Due to [place] [employer] law, this organization might not be sharing sensitive test results. Procedure Name Priority Date/Time Associated Diagnosis Comments CHLAMYDIA TRACHOMATIS, AMPLIFIED Routine 04/14/2016 12:00 AM EST from Last 3 Months or Most Recently Relevant to Health Maintenance Results * Due to [place] [employer] law, this organization might not be sharing sensitive test results. * Chlamydia trachomatis, Amplified (04/14/2016 12:00 AM EST) C.TRACHOMATIS PCR Not Detected CONVERTED LABS Comment: Elena Foster ??04/13/2016 10:42:04 AM > , Urine sample labeled and sent to [facility] Kym Christianson 04/15/2016 03:17:49 PM > Sunita Meade ??04/18/2016 08:52:26 AM > Negative Reason: Received -[facility] Lab Order Procurement Director 04/14/2016 Narrative CONVERTED LABS - 04/14/2016 12:00 AM EST Chlamydia trachomatis detection by PCR us Sunita Meade MD LAB BLOOD ORDERABLES Final Re sult CONVERTED LABS from Last 3 Months or Most Recently Relevant to Health Maintenance
--- OUTSIDE RECORDS SUMMARY | 2024-04-10 13:06 | XMS_ITS | Encounter Summary ---
Author Organization [facility] Address [address] [place] [address] Phone Care Team Providers Care Meat Soaker Name Role Phone Radhames Nathan MD Primary Care Provider [phone] Encounter Details Date Type Department Care Team (Late st Contact Info) Description 10/04/2016 Conversion Encounter [facility] Pediatrics - [address], [address] [place] [address] Sunita Meade MD [address] [place] [address] Social History Tobacco Use Types Packs/Day Years [...] on filedocumented in this encounter Care Teams Meat Soaker Relationship Specialty Start Date End Date Radhames Nathan MD [address] [place] [address] PCP - General Pediatrics 02/01/17 09/14/20 documented as of this encounter
[2024-04-10 13:11] VITALS: BP 110/68; BMI 31.5
--- NOTE | 2024-04-10 13:11 | A.OFFVIS_ITS ---
Vital Signs 04/10/24 13:11 Height 5 ft 3 in Weight 178 lb BMI 31.5 BP 110/68 Intake Visit Reasons: Mirena insertion Sales Recruiting Coordinator Required: No Information Interpreted: non-clinical & clinical Family Law Paralegal: Family Law Paralegal Present (Lorie Guerrero SULEMAN) Accompanied by: Self / Same As Patient Allergies shellfish derived [SHELLFISH DERIVED] Allergy (Severe, Verified 04/10/24 13:19) hives SEAFOOD Allergy (Severe, Uncoded 04/10/24 13:19) swelling GRASS Allergy (Intermediate, Uncoded 04/10/24 13:19) Rash SEASONAL ALLERGIES Allergy (Mild, Uncoded 04/10/24 13:19) sneezing Is last menstrual period known: Yes Last menstrual period: 04/10/24 HPI Comments Details: Presenting for Mirena IUD insertion. [facility] Medical History HPV in female High cholesterol Motion sickness Migraine Overweight (BMI 25.0-29.9) Paroxysmal sinus tachycardia Surgical History No pertinent past surgical history Family History Mother Cancer Cervical cancer Father No problems noted. Paternal Grandmother Heart attack Social History Housing: House Alcohol intake: current Alcohol intake frequency: holidays/special occasions only Patient Tobacco Use Status: Never used Tobacco e-Cigarette/Vaping Use: Former Use Second Hand Smoke Exposure: No service: No Current occupational status: employed Current occupational exposures/hazards: No Cognitive needs: No Hearing needs: No Vision needs: No Female Reproductive History Menstrual Age of Menarche: 12 Date of last menstrual period: 04/10/24 Physical Exam Vital Signs: BMI result Body Mass Index 31.5 Office Procedures IUD Insert/Removal Details Details: The patient is presenting for Mirena IUD insertion Urine test was done in the office and was negative; All the contraindications were excluded. The following possible complications were discussed with the patient: Intrauterine , Ectopic , Sepsis, Pelvic Infection, Irregular Bleeding and Amenorrhea, Perforation, Expulsion, Ovarian Cysts, Breast Cancer, The following adverse effects were discussed with the patient: alteration of menstrual bleeding pattern, including: unscheduled uterine bleeding decreased uterine bleeding increased scheduled uterine bleeding female genital tract bleeding ,amenorrhea , genital discharge , vulvovaginitis , breast pain , benign ovarian cyst and associated complications , dysmenorrhea , Gastrointestinal disorders abdominal/pelvic pain, headache/migraine , back pain , acne , depression Alternative options were discussed with the patient including but not limited: control pills, patch, NuvaRing, Depo-medroxyprogesterone acetate, Nexplanon, copper IUD, sterilization, vasectomy, others The procedure was explained in detail to patient , at the end patient signed the informed consent obtained. A no touch technique was used throughout the procedure. A speculum was placed into vagina and cervix was cleaned with betadine). A tenaculum was placed. A plastic sound was advanced through the external and internal os until it reached the fundus of the uterus, the depth was 8 cm. The sound was then withdrawn. The IUD was loaded in a sterile manner and advanced into position. The string was visualized and cut to 3 cm. Tenaculum site hemostatic. All instruments removed from vagina. Patient tolerated the procedure well. NO complications were noted. Patient was instructed to call for fever over 100.4, significant pain unrelieved by Motrin, IUD expulsion, heavy bleeding, or abnormal discharge. In addition, the following clinical considerations were discussed with the patient to call for removal: A stroke or heart attack ,Very severe or migraine headaches ,Unexplained fever ,Yellowing of the skin or whites of the eyes, as these may be signs of serious liver problems , or suspected , Pelvic pain or pain during sex ,HIV positive seroconversion in herself or her partner , Possible exposure to sexually transmitted infections Unusual vaginal discharge or genital sores , severe vaginal bleeding or bleeding that lasts a long time, or if she misses a menstrual period, Inability to feel Mirena's threads Counseled the patient that the IUD does not protect against STI's, recommended use of condoms for the first 7 days post insertion and explained to the patient that condoms are recommended for patients at risk for sexually transmitted infections. Informed the patient that Mirena IUD is FDA approved for 8 years for contraception for 5 years for the treatment of heavy menses Instructed the patient to schedule a Follow up appointment in 4 to 6 weeks following insertion. This note was generated with a voice recognition program. Some errors may have been overlooked during the review of this note. Sometimes these errors may affect the content or meaning of a given sentence. 65024-YGC Insertion Procedure code (CPT) selection complete Office Meds Mirena 21 mcg/24 hr (up to 8 years) 52 mg intrauterine device Performing Provider: Mahamed Rojas MD Performing Location: [facility] Documented (not given) by: Mahamed Rojas MD on 04/10/24 13:34 Dose Route Admin Location Dispensed Lot Number Expiration Date [facility] [employer]person [employer] 1 device intrauterine ea Assessment & Plan Assessment & Plan (1) Encounter for IUD insertion: Code(s): Z30.430 - Encounter for insertion of intrauterine contraceptive device Category: Medical Plan: Mirena IUD inserted, see procedure note Orders: Orders AMB HCG Urine Test Today Z32.02 - Encounter for test, result negative AMB IUD Insertion/Removal - Practice Supplied Today Z30.430 - Encounter for insertion of intrauterine contraceptive device Medications: New Mirena (levonorgestrel) 1 device intrauterine ONCE 1 ea 0RF NS Z30.430 - Encounter for insertion of intrauterine contraceptive device Coding Level of Care Code Procedure Only Diagnoses Encounter for IUD insertion Z30.430 CPT Codes Details - CPT: 00999-GUB Insertion ([id number])
== END 2024-04-10 13:46 | disposition home or self-care (01) ==
PROVIDERS: PCP Family Medicine; Visit Provider Obstetrics & Gynecology
DX: Z30.430 Encounter for insertion of intrauterine contraceptive device (principal); Z32.02 Encounter for pregnancy test, result negative
CPT/HCPCS: 58300

== ENCOUNTER 2024-04-10 12:58 | Outpatient (REF) | payer OTHER, SELFPAY ==
--- OUTSIDE RECORDS SUMMARY | 2024-04-10 14:04 | XMS_ITS | Encounter Summary ---
Author Organization [facility] Address [address] [place] [address] Phone Care Team Providers Care Tool And Die Manager Name Role Phone Radhames Nathan MD Primary Care Provider [phone] Encounter Details Date Type Department Care Team (Late st Contact Info) Description 10/04/2016 Conversion Encounter [facility] Pediatrics - [address], [address] [place] [address] Sunita Meade MD [address] [place] [address] Social History Tobacco Use Types Packs/Day Years [...] on filedocumented in this encounter Care Teams Tool And Die Manager Relationship Specialty Start Date End Date Radhames Nathan MD [address] [place] [address] PCP - General Pediatrics 02/01/17 09/14/20 documented as of this encounter
--- OUTSIDE RECORDS SUMMARY | 2024-04-10 14:04 | XMS_ITS | Clinical Summary ---
Author Organization [facility] Address [address] [place] [address] Phone Care Team Providers Care Sustainable Products Marketing Manager Name Role Phone Unavailable Primary [...] ER Dysthymic disorder 03/08/2015 Overview (08/21/2017): Per [facility] evaluation. R/O Nonverbal learning disorder ([facility] - trouble reaching mom to complete it), R/O ADHD predominantly inattentive type. Referred for therapy to [facility] in [place] (walk in intake available). 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 They can happen at other times as well. 09/2017: [facility] neurology evaluation - recommended sumatriptan PRN and [...] bronchospasm 05/19/2015 08/21/2017 Overview (12/12/2016): Has seen tree cutter with no diagnosis. No change in 2017 [...] complete this topic Procedures * Due to [place] [employer] law, this organization might not be sharing sensitive test results. Procedure Name Priority Date/Time Associated Diagnosis Comments CHLAMYDIA TRACHOMATIS, AMPLIFIED Routine 04/14/2016 12:00 AM EST from Last 3 Months or Most Recently Relevant to Health Maintenance Results * Due to [place] [employer] law, this organization might not be sharing sensitive test results. * Chlamydia trachomatis, Amplified (04/14/2016 12:00 AM EST) C.TRACHOMATIS PCR Not Detected CONVERTED LABS Comment: Elena Foster ??04/13/2016 10:42:04 AM > , Urine sample labeled and sent to [facility] Kym Christianson 04/15/2016 03:17:49 PM > Sunita Meade ??04/18/2016 08:52:26 AM > Negative Reason: Received -[facility] Lab Order Printer'S Assistant 04/14/2016 Narrative CONVERTED LABS - 04/14/2016 12:00 AM EST Chlamydia trachomatis detection by PCR us Sunita Meade MD LAB BLOOD ORDERABLES Final Re sult CONVERTED LABS from Last 3 Months or Most Recently Relevant to Health Maintenance
[2024-04-11 14:00] LABS: CT PCR NOT DETECTED (Not Detect.); NG PCR NOT DETECTED (Not Detect.)
== END 2024-04-10 12:59 | disposition home or self-care (01) ==
LOC: HO.LNP 12:58
PROVIDERS: PCP Family Medicine; Visit Provider Obstetrics & Gynecology
DX: Z30.430 Encounter for insertion of intrauterine contraceptive device (principal); Z32.02 Encounter for pregnancy test, result negative
CPT/HCPCS: 58300; 81025; 87491; 87591; J7298

== ENCOUNTER 2024-05-27 10:13 | Outpatient (AMB) | payer OTHER, SELFPAY ==
[2024-05-27 10:19] VITALS: BP 106/62
--- NOTE | 2024-05-27 10:19 | MHC.OFFVIS ---
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 The patient has no complaints periods are normal, not painful, and flow is normal. [facility] Medical History HPV in female High cholesterol Motion sickness Migraine Overweight (BMI 25.0-29.9) Paroxysmal sinus tachycardia Surgical History No pertinent past surgical history Family History Mother Cancer Cervical cancer Father No problems noted. Paternal Grandmother Heart attack Social History Housing: House Alcohol intake: current Alcohol intake frequency: holidays/special occasions only Patient Tobacco Use Status: Never used Tobacco e-Cigarette/Vaping Use: Former Use Second Hand Smoke Exposure: No Patient : No service: No Current occupational status: employed Current occupational exposures/hazards: No Cognitive needs: No Hearing needs: No Vision needs: No Female Reproductive History Menstrual Age of Menarche: 12 Review of Systems Const All systems reviewed & are unremarkable except as noted in HPI and below Physical Exam Vital Signs: Last Vital Signs BP 106/62 05/27/24 10:19 General: Yes no CVA tenderness External Female Exam: normal external appearance and normal appearance of the urethra Speculum Exam - Vagina: normal appearance of the vagina, normal palpation, no lesions and no masses Speculum Exam - Cervix: normal appearance of the cervix, normal palpation, no lesions, no masses, nontender and Other cervical findings present (IUD string in place) Bimanual exam- vagina & uterus: normal bimanual exam, normal palpation, uterine size normal, normal palpation, uterine shape normal, No Cervical tenderness present and non-tender Bimanual Exam- Adnexa, other: normal adnexae Back/Spine/Pelvis Back: no CVA tenderness Assessment & Plan Assessment & Plan (1) IUD check up: Code(s): Z30.431 - Encounter for routine checking of intrauterine contraceptive device Category: Medical Plan: UPT done in the office was negative. Discussed with the patient the finding on physical exam, IUD string in place, the patient was reassured. Instructions given to patient to call in case of temperature above 100.4, severe cramping/pelvic pain, abnormal discharge or abnormal uterine bleeding or if she misses her menstrual cycle. Otherwise follow-up at her annual exam appointment. All questions answered, the patient verbalized understanding. Coding Level of Care Code Est Pt Level 3 (42276) Diagnoses IUD check up Z30.431
--- OUTSIDE RECORDS SUMMARY | 2024-05-27 11:58 | XMS_ITS | Encounter Summary ---
Author Organization [facility] Address [address] [place] [id number] Phone Care Team Providers Care Corrective And Manual Arts Therapist Name Role Phone Radhames Nathan MD Primary Care Provider [phone] Encounter Details Date Type Department Care Team (Late st Contact Info) Description 10/04/2016 Conversion Encounter [facility] - [address], [address] [place] [address] Sunita Meade MD [address] [place] [address] Social History Tobacco Use Types Packs/Day Years [...] on filedocumented in this encounter Care Teams Corrective And Manual Arts Therapist Relationship Specialty Start Date End Date Radhames Nathan MD [address] [place] [address] PCP - General Pediatrics 02/01/17 09/14/20 documented as of this encounter
--- OUTSIDE RECORDS SUMMARY | 2024-05-27 11:58 | XMS_ITS | Clinical Summary ---
Author Organization [facility] Address [address] [place] [phone] Phone Care Team Providers Care Burrer Operator Name Role Phone Unavailable Primary Care Provider [...] ER Dysthymic disorder 03/08/2015 Overview (08/21/2017): Per [facility] evaluation. R/O Nonverbal learning disorder (ref[facility] neuropsych [facility] - trouble reaching mom to complete it), R/O ADHD predominantly inattentive type. Referred for therapy to [facility] in [place] (walk in intake available). 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 They can happen at other times as well. 09/2017: [facility] neurology evaluation - recommended sumatriptan PRN and [...] bronchospasm 05/19/2015 08/21/2017 Overview (12/12/2016): Has seen silviculturist with no diagnosis. No change in 2017 [...] complete this topic Procedures * Due to [place] Adstrix law, this organization might not be sharing sensitive test results. Procedure Name Priority Date/Time Associated Diagnosis Comments CHLAMYDIA TRACHOMATIS, AMPLIFIED Routine 04/14/2016 12:00 AM EST from Last 3 Months or Most Recently Relevant to Health Maintenance Results * Due to [place] Ad[employer]rix law, this organization might not be sharing sensitive test results. * Chlamydia trachomatis, Amplified (04/14/2016 12:00 AM EST) C.TRACHOMATIS PCR Not Detected CONVERTED LABS Comment: Elena Foster ??04/13/2016 10:42:04 AM > , Urine sample labeled and sent to [facility] Kym Christianson 04/15/2016 03:17:49 PM > Sunita Meade ??04/18/2016 08:52:26 AM > Negative Reason: Received -[facility] Lab Order Curriculum Supervisor 04/14/2016 Narrative CONVERTED LABS - 04/14/2016 12:00 AM EST Chlamydia trachomatis detection by PCR us Sunita Meade MD LAB BLOOD ORDERABLES Final Re sult CONVERTED LABS from Last 3 Months or Most Recently Relevant to Health Maintenance
== END 2024-05-27 10:31 | disposition home or self-care (01) ==
LOC: HO.HWS 10:13
PROVIDERS: PCP Family Medicine; Visit Provider Obstetrics & Gynecology
DX: Z30.431 Encounter for routine checking of intrauterine contraceptive device (principal)
CPT/HCPCS: 99213

== ENCOUNTER → 2024-05-27 10:13 | Outpatient (BNVA) | payer OTHER, SELFPAY | PROVIDERS: PCP Family Medicine; Visit Provider Obstetrics & Gynecology ==

== ENCOUNTER 2024-12-03 09:28 | Outpatient (AMB) | payer OTHER, SELFPAY ==
--- NOTE | 2024-12-03 09:43 | A.OFFPC_ITS ---
Vital Signs 12/03/24 09:44 Height 5 ft 3 in Weight 185 lb BMI 32.8 BP 102/66 Blood Pressure Location Rt brachial Position Sitting Respiration 14 Pulse 62 Pulse Source Pulse Oximeter Temp 98.2 F Temp Source Oral Pulse Oximetry (%) 98 Oxygen Delivery Method Room Air Intake Visit Reasons: Cpe Intake Note: Physical Print Line Inspector Required: No Allergies shellfish derived (SHELLFISH DERIVED) Allergy (Severe, Verified 12/03/24 09:43) hives SEAFOOD Allergy (Severe, Uncoded 12/03/24 09:43) swelling GRASS Allergy (Intermediate, Uncoded 12/03/24 09:43) Rash SEASONAL ALLERGIES Allergy (Mild, Uncoded 12/03/24 09:43) sneezing Medication List - Last Reconciled 12/03/24 by Chel Allred PA-C atorvastatin 10 mg PO BEDTIME fremanezumab-vfrm (Ajovy Syringe) 225 mg subcut QMONTH ibuprofen 600 mg PO Q6H PRN propranolol 10 mg PO BID pyridostigmine bromide 60 mg PO BID sumatriptan succinate 100 mg PO DAILY Tobacco use date assessed: 12/03/24 Dental Screening Dental Screen Date: 12/03/24 Did you have a dental visit in the last 12 months?: Yes Did you have a dental problem in the last 6 months where you did not have access to dental care?: No Was dental information given to patient?: Patient has dentist HPI Cpe HPI Details Pt is a 24 y.o female who presents today for a cpe. Some more recent stressors with recently losing her job at the [employer]. Recent break up with significant other. CV: Follows with cardiology in [place] for her POTS. No recent changes to medications. She is on propranolol 10 mg twice a day. Blood pressure today is 102/66. Has not been taking lipitor x3 months. Psych: No SI/HI. Not any medication for anxiety or depression. Neurology: follows closely with neuro. Recently has been having more frequent headaches. It does seem to be worse with exercise. She is not sure if it is related to heart has been she exercises her heart rate does go up to the 200s. 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 Paternal Grandmother Heart attack Social History (Updated 12/03/24 @ 09:47 by Shea Zacarias CMA) Housing: House Alcohol intake: current Alcohol intake frequency: holidays/special occasions only Patient Tobacco Use Status: Never used Tobacco e-Cigarette/Vaping Use: Former Use Second Hand Smoke Exposure: No service: No Current occupational status: unemployed Current occupational exposures/hazards: No Cognitive needs: No Hearing needs: No Vision needs: No Female Reproductive History Menstrual Age of Menarche: 12 Questionnaire PHQ-9 Over the last 2 weeks, how often have you been bothered by any of the following problems? 1. Little interest or pleasure in doing things: not at all 2. Feeling down, depressed, or hopeless: several days 3. Trouble falling or staying asleep, or sleeping too much: more than half the days 4. Feeling tired or having little energy: nearly every day 5. Poor appetite or overeating: more than half the days 6. Feeling bad about yourself - or that you are a failure or have let yourself or your family down: several days 7. Trouble concentrating on things, such as reading the newspaper or watching television: more than half the days 8. Moving or speaking so slowly that other people could have noticed. Or the opposite - being so fidgety or restless that you have been moving around a lot more than usual: more than half the days 9. Thoughts that you would be better off or of hurting yourself in some way: several days Total score: 14 Depression Screening Interpretation: Positive Depression Screening Done: Yes 28766 - PHQ-9 Billing: Yes Source: Developed by Drs. Giuseppe Quispe, Rose Cross, Alex Schulz and colleagues, with an educational ann marie from [employer]. Thrive Questionnaire Date Thrive assessed: 12/03/24 I am a: Patient What is your living situation today?: I have a steady place to live Within the past 12 months, did the food you bought not last and you didn't have the money to get more?: Sometimes True Within the past 12 months, did you worry whether your food would run out before you got money to buy more?: Sometimes True Do you have trouble paying for medicines?: No Do you have trouble getting transportation to medical appointments?: No Do you have trouble paying your heating and electricity bill?: No Do you have trouble taking care of your child, family member or friend?: No Do you have trouble with day-to-day activities such as bathing, preparing meals, shopping, managing finances, etc.?: No Are you currently unemployed and looking for a job?: Yes Are you interested in more education?: No Please select the resources that you would like help with: None Currently or been in a relationship where the following occur: No concerns reported THRIVE Score: 2 AUDIT C Alcohol Use Questionnaire (AUDIT-C) 1. How often do you have a drink containing alcohol?: 2-4 times a month 2. How many drinks containing alcohol do you have on a typical day when you are drinking?: 1 or 2 3. How often do you have six or more drinks on one occasion?: Never Total Score: 2 TANMAY-7 AMB Questionnaire TANMAY-7 Date TANMAY - 7 assessed: 12/03/24 Feeling nervous, anxious, or on edge: 1 = Several days Not being able to stop or control worryin = Not at all Worrying too much about different things: 1 = Several days Trouble relaxin = Several days Being so restless that it is hard to sit still: 2 = More than half the days Becoming easily annoyed or irritable: 2 = More than half the days Feeling afraid as if something awful might happen: 0 = Not at all Total TANMAY-7 score (0-4 normal; 5-9 mild; 10-14 moderate; 15-21 severe): 7 Source: Developed by Drs. Giuseppe Quispe, Rose Cross, Alex Schulz and colleagues, with an educational ann marie from [employer]. TANMAY-7 Assessment Billing TANMAY-7 Assessment Tool: TANMAY-7 Assessment 54331 Physical exam (Primary Care) Vital Signs: Last Vital Signs Temp 98.2 F 12/03/24 09:44 Pulse 62 12/03/24 09:44 Resp 14 12/03/24 09:44 BP 102/66 12/03/24 09:44 Pulse Ox 98 10/08/25 09:44 Oxygen Delivery Method Room Air 12/03/24 09:44 BMI result Body Mass Index 32.8 Tobacco/Smoking Status: Tobacco use Status Tobacco use date assessed 12/03/24 12/03/24 09:47 Patient Tobacco Use Status Never used Tobacco 12/03/24 09:47 e-Cigarette/Vaping Use Former Use 12/03/24 09:47 PHQ-9: PHQ-9 Score PHQ-9: Total score 14 12/03/24 09:49 Depression Screening Interpretation: Positive Thrive Assessment: Date of Thrive Assessment Date Thrive assessed 12/03/24 12/03/24 09:47 Currently or been in a relationship where the following occur: No concerns reported Const Orientation/consciousness: patient oriented x3 HENMT Ears: hearing grossly normal bilaterally and TM's normal bilaterally General nose exam: No nasal polyps present Face and sinus: Yes sinuses nontender Mouth: Normal oral and palatal mucosa present Eyes Pupils: Equal, round and reactive pupils present EOM: EOMs intact bilaterally Neck Neck: Yes full ROM and Yes no lymphadenopathy Thyroid: Thyroid normal Chest Chest palpation & inspection: normal inspection of the chest Resp Auscultation: clear to auscultation bilaterally Cardio Rate: regular rate Rhythm: regular rhythm Heart sounds: S1 normal heart sound present and S2 normal heart sound present Peripheral pulses: Peripheral pulses 2+ throughout GI Other: Soft, nontender Auscultation: normal bowel sounds Rectal Exam - Female: deferred General: Yes no CVA tenderness Back/Spine/Pelvis Other: Nontender Back: no CVA tenderness Skin General skin exam: no rashes or lesions noted Neuro General: patient oriented x3, gait normal, CN's II-XI intact bilaterally and deep tendon reflexes 2+ bilaterally Cranial nerves: Yes Equal, round and reactive pupils present Motor exam (neuro): 5/5 motor strength present throughout Sensory Exam: double simultaneous stimulation for sensation normal Coordination: [id number] test normal and Romberg test negative Extrem General: Yes normal to inspection and Yes full ROM Psych Affect: normal affect Attitude: cooperative Thought process: Normal thought process present Thought content: Normal thought content present Insight: Good insight present (Psych) Judgement: Good judgement present (Psych) Coding Level of Care Code Est Pt Prev Care 18-39y(88432) Diagnoses Routine general medical examination at a health care facility Z00.00 Pure hypercholesterolemia E78.00 Hyperlipidemia type: pure hypercholesterolemia Elevated liver enzymes R74.8 POTS (postural orthostatic tachycardia syndrome) G90.A Migraine without aura and without status migrainosus, not intractable G43.009 Status migrainosus presence: without status migrainosus Intractability: not intractable Additional Codes TANMAY-7 Assessment Billing - TANMAY-7 Assessment Tool: TANMAY-7 Assessment 36984 ([id number]) PHQ-9 - 28559 - PHQ-9 Billing: Yes ([id number]) Assessment & Plan Assessment & Plan (1) Routine general medical examination at a health care facility: Code(s): Z00.00 - Encounter for general adult medical examination without abnormal findings Plan: Health maintenance reviewed Labs ordered We will follow up pending test results. Offered immunization Short term follow up to be reassessed (2) Hyperlipidemia: Code(s): E78.5 - Hyperlipidemia, unspecified Category: Medical Qualifiers: Hyperlipidemia type: pure hypercholesterolemia Qualified Code(s): E78.00 - Pure hypercholesterolemia, unspecified Plan: Has not been taking the atorvastatin consistently. We will check labs. (3) Elevated liver enzymes: Code(s): R74.8 - Abnormal levels of other serum enzymes Category: Medical Plan: We will recheck LFTs (4) POTS (postural orthostatic tachycardia syndrome): Code(s): G90.A - Postural orthostatic tachycardia syndrome [POTS] Category: Medical Plan: Advised to try increasing the propranolol to 20 mg on days that she is going to exercise and advised her to contact her library specialist (5) Migraine headache without aura: Code(s): G43.009 - Migraine without aura, not intractable, without status migrainosus Category: Medical Qualifiers: Status migrainosus presence: without status migrainosus Intractability: not intractable Qualified Code(s): G43.009 - Migraine without aura, not intractable, without status migrainosus Plan: Advised to contact neurologist about the increased headaches. She does appear grossly neurologically intact. Orders: Orders Complete Blood Count Auto Diff 12/03/24 E78.00 - Pure hypercholesterolemia, unspecified, G90.A - Postural orthostatic tachycardia syndrome [POTS], R74.8 - Abnormal levels of other serum enzymes, Z00.00 - Encounter for general adult medical examination without abnormal findings Basic Metabolic Panel 12/03/24 E78.00 - Pure hypercholesterolemia, unspecified, G90.A - Postural orthostatic tachycardia syndrome [POTS], R74.8 - Abnormal levels of other serum enzymes, Z00.00 - Encounter for general adult medical examination without abnormal findings Lipid Panel 12/03/24 E78.00 - Pure hypercholesterolemia, unspecified, G90.A - Postural orthostatic tachycardia syndrome [POTS], R74.8 - Abnormal levels of other serum enzymes, Z00.00 - Encounter for general adult medical examination without abnormal findings UA CC w/rflx Micro + Cult 12/03/24 E78.00 - Pure hypercholesterolemia, unspecified, G90.A - Postural orthostatic tachycardia syndrome [POTS], R30.0 - Dysuria, R74.8 - Abnormal levels of other serum enzymes, Z00.00 - Encounter for general adult medical examination without abnormal findings Microalbumin, Random (w Creat) 12/03/24 E78.00 - Pure hypercholesterolemia, unspecified, G90.A - Postural orthostatic tachycardia syndrome [POTS], R74.8 - Abnormal levels of other serum enzymes, Z00.00 - Encounter for general adult medical examination without abnormal findings Liver Panel 12/03/24 E78.00 - Pure hypercholesterolemia, unspecified, G90.A - Postural orthostatic tachycardia syndrome [POTS], R74.8 - Abnormal levels of other serum enzymes, Z00.00 - Encounter for general adult medical examination without abnormal findings TSH reflex Free T4 12/03/24 E78.00 - Pure hypercholesterolemia, unspecified, G90.A - Postural orthostatic tachycardia syndrome [POTS], R74.8 - Abnormal levels of other serum enzymes, Z00.00 - Encounter for general adult medical examination without abnormal findings
[2024-12-03 09:44] VITALS: BP 102/66; PULSE 62; RESP 14; TEMP 36.8; O2SAT 98; BMI 32.8
== END 2024-12-03 10:08 | disposition home or self-care (01) ==
LOC: HO.HMCFM 09:28
PROVIDERS: PCP Pediatrics; Visit Provider Physician Assistant
DX: Z00.00 Encounter for general adult medical examination without abnormal findings (principal); E78.00 Pure hypercholesterolemia, unspecified; R74.8 Abnormal levels of other serum enzymes; G90.A Postural orthostatic tachycardia syndrome [POTS]; G43.009 Migraine without aura, not intractable, without status migrainosus

== ENCOUNTER 2024-12-03 09:28 | Outpatient (REF) | payer OTHER, SELFPAY ==
[2024-12-03 14:20] LABS: MANUAL DIFF FLAG NO
[2024-12-03 14:32] LABS: Hematocrit 41.4 % (37.0-47.0); Hemoglobin 13.2 g/dl (12.0-16.0); Imm Gran Abs Auto 0.02 X10*3/uL (0.00-0.03); Imm Gran Pct Auto 0.3 % (0.0-0.4); Lymphocytes Absolute Auto 2.5 X10*3/uL (1.2-4.9); Mean Corpuscular HGB Conc 31.9 g/dl (31.0-35.0); Mean Corpuscular Hemoglobin 28.0 pg (27.0-33.0); Mean Corpuscular Volume 87.7 fL (80.0-98.0); NRBC Abs Auto 0.000 X10*3/uL (0.0-0.012); NRBC Pct Auto 0.0 /100WBC (0.0-0.2); Platelet Count 269 X10*3/uL (160-400); Red Blood Count 4.72 X10*6/uL (4.20-5.50); White Blood Count 7.5 X10*3/uL (4.8-10.8)
[2024-12-03 14:57] LABS: Appearance Urine Turbid; Glucose Urine UA Negative (Negative); PH 5.0 (5.0-9.0); Specific Gravity - Urine 1.020 (1.005-1.025); UMIC TRIGGER UACC YES
[2024-12-03 15:30] LABS: Alanine Aminotransferase 28 U/L (0-31); Albumin Level 4.6 g/dL (3.5-5.0); Alkaline Phosphatase 93 U/L (39-117); Anion Gap 9 (12-20); Aspartate Amino Transferase 31 U/L (5-31); Blood Urea Nitrogen 10 mg/dL (9-16); Calcium 9.4 mg/dL (8.4-10.2); Carbon Dioxide 30 mmol/L (22-29); Chloride 107 mmol/L (96-108); Cholesterol 211 mg/dL (<200); Estimated Glomerular Filt Rate > 60; HDL Cholesterol 59 mg/dL (>40); Potassium 4.4 mmol/L (3.3-5.1); Sodium 142 mmol/L (135-145); Total Protein 7.2 g/dL (6.5-8.0); Triglycerides 75 mg/dL (<150)
== END 2024-12-03 09:29 | disposition home or self-care (01) ==
LOC: HO.WFDLDS 09:28
PROVIDERS: PCP Pediatrics; Visit Provider Physician Assistant
DX: Z00.00 Encounter for general adult medical examination without abnormal findings (principal); E78.00 Pure hypercholesterolemia, unspecified; R74.8 Abnormal levels of other serum enzymes; G90.A Postural orthostatic tachycardia syndrome [POTS]; G43.009 Migraine without aura, not intractable, without status migrainosus
CPT/HCPCS: 36415; 80048; 80061; 80076; 81001; 82043; 82570; 84443; 85025; 96127

== ENCOUNTER 2024-12-11 11:09 | Outpatient (AMB) | payer OTHER, SELFPAY ==
--- NOTE | 2024-12-11 11:14 | MHC.OFFVIS ---
Intake Visit Reasons: 6M/Migraine Allergies shellfish derived (SHELLFISH DERIVED) Allergy (Severe, Verified 12/11/24 12:14) hives SEAFOOD Allergy (Severe, Uncoded 12/11/24 12:14) swelling GRASS Allergy (Intermediate, Uncoded 12/11/24 12:14) Rash SEASONAL ALLERGIES Allergy (Mild, Uncoded 12/11/24 12:14) sneezing Medication List - Last Reconciled 12/11/24 by Miriam Carty CNP atorvastatin 10 mg PO BEDTIME fremanezumab-vfrm (Ajovy Syringe) 225 mg subcut QMONTH ibuprofen 600 mg PO Q6H PRN propranolol 10 mg PO BID pyridostigmine bromide 60 mg PO BID sumatriptan succinate 100 mg PO DAILY HPI Comments Details: She was doing okay. Migraines were better with Ajovy. She had migraine about 1x/week. She missed dose this month and had few more headaches. She would get some headaches after exercising at the gym. She would had some carsickness after being in car for period of time or after riding dirt bike. Sleep was not so good. She was under some more stress as she lost her job a few weeks ago. She was following with cardiology at [facility] for POTS. Had severe constipation with Aimovig, switched to Ajovy and doing well, no side effects. Migraine frequency down significantly. Had some mild daily headaches that she does not take anything for. Takes Excedrin as needed. Sumatriptan was not working too well. Diagnosed with POTS at [facility] and started on pyridostigmine. History of 2 concussions at ages 5 and 14 without LOC. Had daily, constant headache for 5 years, described as band around head with squeezing sensation. Hurts behind her eyes. No triggers identified. Gets some carsickness. She tried amitriptyline 10 mg for 3 weeks and then stopped it and topiramate 25 mg per week and stopped it because she thought it was making her headache worse. She has tried vitamin B, and magnesium which made her sick. COUNT INCLUDES THE [facility] Medical History (Updated 12/11/24 @ 11:17 by Miriam Carty CNP) HPV in female High cholesterol Motion sickness Migraine Overweight (BMI 25.0-29.9) Paroxysmal sinus tachycardia Surgical History No pertinent past surgical history Family History Mother Cancer Cervical cancer Father No problems noted. Paternal Grandmother Heart attack Social History (Updated 12/03/24 @ 09:47 by Shea Zacarias CMA) Housing: House Alcohol intake: current Alcohol intake frequency: holidays/special occasions only Patient Tobacco Use Status: Never used Tobacco e-Cigarette/Vaping Use: Former Use Second Hand Smoke Exposure: No service: No Current occupational status: unemployed Current occupational exposures/hazards: No Cognitive needs: No Hearing needs: No Vision needs: No Female Reproductive History Menstrual Age of Menarche: 12 Review of Systems Const Denies chills, Denies daytime sleepiness, Reports difficulty sleeping, Reports fatigue, Denies fever(s), Denies frequent falls, Reports headache(s), Denies increased appetite, Denies poor appetite, Denies snoring, Denies weakness, Denies weight gain and Denies weight loss Eyes Denies loss of vision ENT Denies vertigo, Reports dizziness, Reports headache(s) and Denies neck pain Card Denies chest pain at rest, Denies chest pain with activity, Denies syncope, Denies leg edema, Denies palpitations, Denies dyspnea and Denies dyspnea on exertion Resp Denies cough, Denies dyspnea, Denies dyspnea on exertion and Denies snoring GI Denies abdominal pain, Denies constipation, Denies heartburn, Denies diarrhea and Denies nausea Denies urinary frequency, Denies urinary incontinence and Denies urinary urgency Musc Denies abnormal gait, Denies back pain, Denies myalgias, Denies arthralgias, Denies neck pain, Denies numbness and Denies tingling Neuro Denies abnormal gait, Denies vertigo, Reports dizziness, Denies syncope, Denies frequent falls, Reports headache(s), Denies lack of coordination, Denies loss of vision, Denies memory loss, Denies numbness, Denies Other visual disturbances, Denies restless legs, Denies seizure-like activity, Denies tingling, Denies paresthesias, Denies tremor(s) and Denies weakness Psych Reports anxiety, Denies depression, Denies auditory hallucinations, Denies memory loss and Denies visual hallucinations Endo Reports fatigue and Denies palpitations Physical Exam Const Other: General Appearance:? normal, in no acute distress. Heart:? S1, S2 normal, no murmurs. Lungs:? clear anteriorly and posteriorly. Musculoskeletal:? normal. Extremities:? no edema. Psych:? alert, oriented, cognitive function intact, cooperative with exam. Neuro Other: Abnormal Neurological Findings:?none.? Mental Status: alert and oriented X 3. Normal attention, orientation, memory, and affect. Cranial Nerves: Pupils are equal, round, and reactive to light. External ocular muscles are intact. Visual venegas are full, no ptosis. Face is symmetrical, no facial weakness or droop. Facial sensations are normal. Tongue protrudes in midline. Palate elevates symmetrically. Shoulder shrugging is normal Motor Examination: Normal muscle tone, bulk and strength. No atrophy or fasciculations. No drift of the extended upper extremities. DTR 2+. Plantars are flexor. Sensory Exam: Normal light touch, temperature, pinprick, vibration, and joint-position sensations. Rhomberg sign is absent. Coordination: No ataxia. No titubation. Gait Exam: Within normal limits. Cerebellar Signs: Pyiezr-yj-tssr is okay. Extrapyramidal System: No tremor, rigidity with normal facial expressions. No bradykinesia. No bradyphrenia. Normal arm swing and posture. No propulsion or retropulsion. Speech: Normal. Results Reviewed Results Reviewed: MRI brain normal except for some nasal congestion. Assessment & Plan Assessment & Plan (1) Migraine: Code(s): G43.909 - Migraine, unspecified, not intractable, without status migrainosus Category: Medical Qualifiers: Intractability: not intractable Migraine type: unspecified Status migrainosus presence: without status migrainosus Qualified Code(s): G43.909 - Migraine, unspecified, not intractable, without status migrainosus Plan: Continue Ajovy 225mg/1.5mL subcutaneous monthly. Start rizatriptan 10mg 1 tablet as needed for migraines, use/side effects reviewed. Offered to send prescription for meclizine, but declining at this time as she thinks she has medication at home already. She was interested in having MRI, and MRI Brain ordered. (2) Muscle tension headache: Code(s): G44.209 - Tension-type headache, unspecified, not intractable Category: Medical Plan Meds tried: Amitriptyline, propranolol, topiramate, NSAIDs, Aimovig (severe constipation) Orders: Orders MR head/brain wo con Today G43.909 - Migraine, unspecified, not intractable, without status migrainosus Medications: New rizatriptan take 1 tab at onset of headache; if no relief may repeat 1 tab after at least 4 hrs; max = 2 tabs/24 hr PO 10 tabs 5RF 30 days Changed From fremanezumab-vfrm (Ajovy Syringe) 225 mg subcut QMONTH To fremanezumab-vfrm (Ajovy Syringe) 225 mg (1.5 mL) subcut QMONTH 1 ea 5RF 30 days Coding Level of Care Code Est Pt Level 4 (88919) Diagnoses Migraine without status migrainosus, not intractable, unspecified migraine type G43.909 Intractability: not intractable Migraine type: unspecified Status migrainosus presence: without status migrainosus Muscle tension headache G44.209
--- OUTSIDE RECORDS SUMMARY | 2024-12-11 14:19 | XMS_ITS | Data Portability ---
Author Organization [facility] [address] Address [address] [place] [address] Care Team Providers Care Mobile Sales Consultant Name Role Phone LALA RILEY Primary Care Provider Assessment No assessment recorded. Plan of Treatment Reminders Order Date Submit Date Provider Last Modified By Organization Details Last Modified Time Details Appointments None recorded. Lab None recorded. Referral None recorded. Procedures None recorded. Surgeries None recorded. Imaging XR, chest, 2 view 2022 023 [email or web address], [address] [place], [address], 10:53:21 Medication Orders azithromyci n 250 mg tablet 2022 023 [id number], [address] [place], [address], 3 10:46:31 amoxicillin 875 mg tablet 2022 023 [facility][id number], [address] [place], [address], 3 10:46:31 Patient TargetsNo targets recorded. Patient Instructions Encounter Date Encounter Id Patient Instructions Last Modified By Organization Details Last Modified Time 06/13/2022 [id number] cough: care instructions [email or web address] Not available 06/13/2022 09:35:48 pneumonia: care instructions [email or web address] Not available 06/13/2022 10:46:46 Take the antibiotics as prescribed. Take an over the counter probiotic daily while taking the antibiotics. Rest. Drink plenty of fluids. See printed instructions and work note. Follow-up with your doctor in one week. Seek Emergency Medical evaluation for any worsening symptoms. Use a back up form of control since the antibiotics may interfere with the effectiveness of your current control medication. [email or web address] Not available 06/13/2022 10:48:25 Reason for Referral None Reported. Results Created Date Observation Date Name Description Value Unit Range Abnormal Flag Note LastModifiedBy Organization Detail LastModifiedTime 06/14/1906/13/2022 XR, chest , 2 view No observ ation record ed. [email or web address] [facility] [address] [place], [address], 06/13/2022 10:44:30 06/14/19 XR, chest , 2 view No observ ation record ed. [email or web address] [facility] [address] [place], [address], 06/13/2022 15:06:27 Result Notes None recorded. Problems Name Problem SNOMED Code Status Onset Date Resolution Date Notes Provider Name and Address Organization Details Recorded Time Postural orthostatic tachycardia syndrome 969252474 Active 2022 Naty espino, [place] - [facility] 3 08:54:51 Hypercholester olemia 43898382 Active 2022 Naty espino, [place] - [facility] 3 08:54:56 Migraine 32338480 Active 2022 Naty espino, [place] - [facility] 3 08:55:01 Problem Notes None recorded. Medical Equipment None Reported. Allergies Allergen ID Allergen Name Allergen Category Reaction Reaction Severity Criticality Documentation Date Start Date Code Code System Note Provider Name and Address Organization Details Recorded Time 684917 shellfish derived food,medi cation Not available Not available Not available 06/13/2022 Naty espino PA - [facility] 3 08:53:14 Medications Name Sig Start Date Stop Date Status Note LastModified by Organization Details LastModified Time azithromycin 250 mg tablet TAKE 2 TABLETS (500 MG) BY ORAL ROUTE ONCE DAILY FOR 1 DAY THEN 1 TABLET (250 MG) BY ORAL ROUTE ONCE DAILY FOR 4 DAYS 2022 active Not Available Not Available Not Avai lable amoxicillin 875 mg tablet Take 1 tablet every 12 hours by oral route for 7 days. 2022 active Not Available Not Available Not Avai lable atorvastatin active Not Available Not Available Not Available pyridostigmine bromide active Not Available Not Available Not Available Altavera (28) 0.15 mg-0.03 mg tablet Take 1 tablet every day by oral route. active Not Available Not Available No t Available Vitals Date Recorded Body height Body mass index (BMI) Body weight Pain severity - 0-10 verbal numeric rating [Score] - Reported Oxygen saturation Oxygen saturation in Arterial blood by Pulse oximetry Heart rate Body temperature Respiratory rate Systolic And Diastolic Provider Name and Address Organization Details Last Updated DateTime 3 160.02 cm 27.5 kg/m2 55822.8 2 g 4 98 % 98 % 73 /min 98.6 [degF] 18 /min 116/81 mm[Hg] Naty Musa [facility] 3 08:56:47 Social History Question Answer Notes LastModified by [employer] Details LastModified Time Tobacco Smoking Status Never Smoker Naty espino rimidi 06/13/2022 08:55:36 Have You Recently Traveled Abroad? No Information not available 06/13/2022 Sex: Unknown Functional Status Question Answer Note LastModified by [employer] Details LastModified Time How many times per week do you consume alcohol? 3-4 times per week Information not available 06/13/2022 Do you use any illicit or recreational drugs? No Information not available 06/13/2022 Do you or have you ever used any other forms of tobacco or nicotine? No Information not available 06/13/2022 What is your level of alcohol consumption? Occasional Information not available 06/13/2022 Mental Status None recorded. Family History Relationship Description Onset Age of this Age Resolved Age Notes LastModified by Organization Details LastModified Time Father Migraine [email or web address] Not availabl e 06/13/2022 08:55:15 Medical History No medical history recorded. Gynecological HistoryNo gynecological history recorded. Obstetrics History GPAL:G 0 P 0 0 0 0 Past Encounters Encounter ID Performer Location Encounter Start Date Encounter Closed Date Diagnosis/Indication Diagnosis SNOMED-CT Code Diagnosis ICD10 Code Diagnosis IMO Codes Diagnosis Note [id number] [address] [place] [address] 02/27/2018 12:24:50 02/27/2018 13:15:03 [id number] [facility] [facility] [address] [place] [address] 11/24/2021 15:03:33 11/24/2021 17:34:12 [id number] [place]dalena Sor[place] [address] [facility] [address] [address] [place] [address] 06/13/2022 08:10:32 06/13/2022 10:53:21 Cough 43087840 R05.9 Community acquired pneumonia 292481576 J18.9 Health Concerns Section Related Observation LastModified by Organization Detai ls LastModified Time None Recorded Concern Status LastModified by Organization Details LastModified Time None Recorded Advance Directives Directive None Recorded Payers Insurance Date Sequence Insurance Name Policy Number Policy Thomas Covered Member ID Thomas Member ID Guarantor Name 06/13/2022 1 [facility] (MEDICAID HMO) PATRICK Krishnamurthy [id number] Mary Krishnamurthy Notes Date Note Type Note Provider Name and Address Organization Details Recorded Time 06/14/19 23 text/htm l CoughReported by PatientHPIFor severity, patient reportsworseningandpain with coughbut reportsmoderate. For timing, patient reportsworseningbut reportsconstant. For associated symptoms, patient reportspost nasal dripbut reportsno fever,no chills,no nausea,no vomiting,no edema, andno wheezing(chest tightness. sinus and chest congestion. nasal congestion. runny nose.). For source of patient information, patient reportsinformation obtained from patientandpatient arrived at urgent care ambulatory. For duration, patient reportsconstantandsymptoms lasting over 2 weeks. For context, patient reportsnon-smoker. For quality, (initially dry, now slightly productive.).21 year old female with hx of POTS, HLD, presenting for evaluation of a persistent cough for the past 3 weeks. The cough was initially dry but is now mildly productive. When her cough first started she had moderate anterior chest tightness and shortness of breath that was worse with cough and deep inspiration. Her chest discomfort improved and is now a low grade tightness with cough and deep inspiration. She continues to have some shortness of breath at rest and with exertion. No wheezing. No fever, chills, sore throat, headache, rash, stiff neck, hemoptysis, GI symptoms or body aches. No leg pain or swelling. She is on oral contraceptives. No immediate family member or personal history of blood clots. She does not smoke. She has some nasal and sinus congestion, chest congestion and post nasal drip. Magdalena Soriano MD [address] [place], [address], [place] - [facility] 06/13/2022 10:49:45 OBGyn Episode No OBEpisode recorded.
--- OUTSIDE RECORDS SUMMARY | 2024-12-11 14:19 | XMS_ITS | Encounter Summary ---
Author Organization [facility] Address [address] [place] [address] Phone Care Team Providers Care Curbstone Setter Name Role Phone Fer Drummond MD Primary Care Provider Encounter Details Date Type Department Care Team (Late st Contact Info) Description 04/25/2024 Procedure Pass [facility] Cardiology [address] [facility], [place] [id number] Social History Tobacco Use Types Packs/Day Years Used Date Smoking Tobacco: Never Smokeless Tobacco: Never Alcohol Use Standard Drinks/Week Comments Never 0 (1 standard drink = 0.6 oz pur e alcohol) Education Answer Date Recorded Are you interested in more education? Not on mei e 06/23/2022 Are you concerned about learning? Not on file 06/23/2022 No 06/23/2022 No 06/23/2022 Digital Access Answer Date Recorded No 07/21/2022 No 07/21/2022 Reliable internet access at home? Not on file 07/21/2022 Device with a working camera? Not on file Comments Unknown Sex and Gender Information Value Date Recorded Sex Assigned at Female 03/10/2022 8:48 AM EST Legal Sex Female 8:46 PM EDT Gender Identity Female 03/10/2022 8:48 AM EST Sexual Orientation Straight 03/10/2022 8: 48 AM EST documented as of this encounter Plan of Treatment Upcoming Encounters Date Type Department Care Team (Late st Contact Info) Description 01/02/2025 10:00 AM EST Office Visit [facility] Cardiology [address], [place] [phone] Susana Regalado MD [address] [place] [address] [email or web address] documented as of this encounter Visit Diagnoses Not on filedocumented in this encounter Care Teams Curbstone Setter Relationship Specialty Start Date End Date Fer Drummond MD [address] [place] [phone] PCP - General Family Medicine 07/18/21 documented as of this encounter Additional Source Comments The information contained in this document represents components of the legal health record. It is not the complete legal health record.[facility]
--- OUTSIDE RECORDS SUMMARY | 2024-12-11 14:19 | XMS_ITS | Encounter Summary ---
Author Organization [facility] Address [address] [place] [address] Phone Care Team Providers Care Devulcanizer Tender Name Role Phone Radhames Nathan MD Primary Care Provider [phone] Encounter Details Date Type Department Care Team (Late st Contact Info) Description 10/04/2016 Conversion Encounter [facility] Pediatrics - [address], [address] [place] [address] Sunita Meade MD [address] [place] [address] Social History Tobacco Use Types Packs/Day Years [...] on filedocumented in this encounter Care Teams Devulcanizer Tender Relationship Specialty Start Date End Date Radhames Nathan MD [address] [place] [address] PCP - General Pediatrics 02/01/17 09/14/20 documented as of this encounter
--- OUTSIDE RECORDS SUMMARY | 2024-12-11 14:19 | XMS_ITS | Clinical Summary ---
Author Organization [facility] Address [address] [place] [address] Phone Care Team Providers Care Auto Service Writer Name Role Phone Unavailable Primary Care Provider [...] ER Dysthymic disorder 03/08/2015 Overview (08/21/2017): Per [facility] evaluation. R/O Nonverbal learning disorder ([facility] - trouble reaching mom to complete it), R/O ADHD predominantly inattentive type. Referred for therapy to [facility] in [place] (walk in intake available). In interview reported [...] seem to be car sickness (even when class c driver) (sxs: bad headache and nausea that may turn into migraines) and heat (maybe humidity). They can happen at other times as well. 09/2017: [facility] neurology evaluation - recommended sumatriptan PRN and [...] bronchospasm 05/19/2015 08/21/2017 Overview (12/12/2016): Has seen digital marketer with no diagnosis. No change in 2017 [...] 80 05/16/2018 8:58 AM EDT Temperature 36.7 C (98.1 F) 01/25/2018 11:01 AM EST Respiratory Rate - - Oxygen Saturation 98% [...] (3 - 3-dose series) 07/06/2016 04/13/2016, 09/22/2015 DTaP,Tdap,and Td Vaccines (7 - Td or Tdap) 02/12/2022 02/13/2012, 10/25/2004, 12/18/2001, Additional history exists Influenza Vaccines (#1) 2024 COVID-19 Vaccine ( season) 2024 Pneumococcal Vaccine Aged Out 02/13/2001, 2000, 2000 [...] on patient's age to complete this topic Men B Vaccine Aged Out No longer elig ible based on patient's age to complete this topic Procedures * Due to [place] law, this organization might not be sharing sensitive test results. Procedure Name Priority Date/Time Associated Diagnosis Comments CHLAMYDIA TRACHOMATIS, AMPLIFIED Routine 04/14/2016 12:00 AM EST from Last 3 Months or Most Recently Relevant to Health Maintenance Results * Due to [place] law, this organization might not be sharing sensitive test results. * Chlamydia trachomatis, Amplified (04/14/2016 12:00 AM EST) C.TRACHOMATIS PCR Not Detected CONVERTED LABS Comment: Elena Foster 04/13/2016 10:42:04 AM > , Urine sample labeled and sent to [facility] Kym Christianson 04/15/2016 03:17:49 PM > Sunita Meade 04/18/2016 08:52:26 AM > Negative Reason: Received -[facility] Lab Order Windlace Machine Operator 04/14/2016 Narrative CONVERTED LABS - 04/14/2016 12:00 AM EST Chlamydia trachomatis detection by PCR us Sunita Meade MD LAB MICROBIOLOGY - GENERAL OR DERABLES Final Result CONVERTED LABS from Last 3 Months or Most Recently Relevant to Health Maintenance
--- OUTSIDE RECORDS SUMMARY | 2024-12-11 14:19 | XMS_ITS | Clinical Summary ---
Author Organization [facility] Address [address] [place] [address] Phone Care Team Providers Care Operations Intelligence Superintendent Name Role Phone Fer Drummond MD Primary Care Provider Allergies Active Allergy Reactions Criticality Noted Date Comments Fish Anaphylaxis High 02/22/2022 Other Low 07/22/2017 Other Reaction(s): Postive Skin test/Positive RAST Trees, mold, grass, leaves, cats and horses. Medications levonorgestrel/eth in.estradiol (ALTAVERA, 28, ORAL) Take by mouth. Active atorvastatin (LIPITOR) 10 MG tablet Take 10 mg by mouth daily. Active albuterol 90 mcg/actuation inhaler INHALE 2 PUFFS EVERY 4 TO 6 HOURS NEEDED FOR SHORTNESS OF BREATH OR WHEEZING 4 Active ondansetron (ZOFRAN-ODT) 4 MG disintegrating tablet 4 Active pyRIDostigmine (MESTINON) 60 mg tablet Take 1 tablet (60 mg total) by mouth 3 (three) times a day. 270 tablet 3 4 Active propranoloL (INDERAL) 10 MG immediate release tablet Take 1 tablet (10 mg total) by mouth 2 (two) times a day. 180 tablet 3 4 Active Active Problems Problem Noted Date Diagnosed Date POTS (postural orthostatic tachycardia syndrome) 02/22/2022 Overview (02/22/2022): Seems you have POTS vs inappropriate Sinus tachycardia Beta blockers may drop pressure Assessment & Plan (03/08/2023 9:45 PM EST): 2- 3 liters Fluid - Chug 1st glass of the day Salt - Soup, NUUNS, Liq IV Compression Socks Lower extremity exercise 6,000 -10,0000 Book: Together we Stand: Riding the Waves of Dysautonomia. By Lakeshia [employer] Autonomic testing - tilt, sweat test If possive Mestinon - Reordered 02/23/23 Mestinon (Pyridostigmine) is a cholinesterase inhibiter that decreases the degradation of acetylcholine which is the pitts neurotransmitter in both fight or flight (sympathetic) and rest and digest (parasympathetic) autonomic systems.This pathway is activated primarily during standing, this drug improves orthostatic hypotension and total peripheral resistance. This is best for patients with mild to moderate orthostatic hypotension. It will also run heart rate lower and increase bowel motility. Side effect - rare face twitch minor queasy that goes away. Slow load Week 1 Mestinon 60 mg 1/2 AM Week 2 Mestinon 1/2 tablet AM and 5 PM Week 3 Mestinon whole tablet AM then 1/2 tablet at 5 PM Week 4 and beyond whole tablet AM and 5 PM Will take effect in 1 month full effect in 3 months 2 liters Assessment & Plan (02/22/2022 3:28 PM EST): 2- 3 liters Fluid - Chug 1st glass of the day Salt - Soup, NUUNS, Liq IV Compression Socks Lower extremity exercise 6,000 -10,0000 Book: Together we Stand: Riding the Waves of Dysautonomia. By Lakeshia [employer] Autonomic testing - tilt, sweat test If possive Mestinon - Mestinon (Pyridostigmine) is a cholinesterase inhibiter that decreases the degradation of acetylcholine which is the pitts neurotransmitter in both fight or flight (sympathetic) and rest and digest (parasympathetic) autonomic systems.This pathway is activated primarily during standing, this drug improves orthostatic hypotension and total peripheral resistance. This is best for patients with mild to moderate orthostatic hypotension. It will also run heart rate lower and increase bowel motility. Side effect - rare face twitch minor queasy that goes away. Slow load Week 1 Mestinon 60 mg 1/2 AM Week 2 Mestinon 1/2 tablet AM and 5 PM Week 3 Mestinon whole tablet AM then 1/2 tablet at 5 PM Week 4 and beyond whole tablet AM and 5 PM Will take effect in 1 month full effect in 3 months Immunizations Immunization Administration Dates Next Due PPD Test 06/08/2023 Family History Medical History Relation Comments Migraines Father Hyperlipidemia Maternal Grandmother Thyroid disease Mother Heart disease Paternal Grandfather Heart attack Paternal Grandmother Relation Status Comments Father Maternal Grandmother Mother Paternal Grandfather Paternal Grandmother Social History Tobacco Use Types Packs/Day Years Used Date Smoking Tobacco: Never Smokeless Tobacco: Never Tobacco Cessation:Counseling Given: Not Answered Alcohol Use Standard Drinks/Week Comments Never 0 [...] Orientation Straight 03/10/2022 8: 48 AM EST Last Filed Vital Signs Vital Sign Reading Time Taken Comments Blood Pressure 104/70 02/25/2024 9:51 AM EST Pulse 75 02/25/2024 9:51 AM EST Temperature 36.9 C (98.5 F) 09/23/2023 3:45 PM EDT Respiratory Rate 18 09/23/2023 3:45 PM EDT Oxygen Saturation 98% 09/23/2023 3:45 PM EDT Inhaled Oxygen Concentration - - Weight 77.6 kg (171 lb) 02/25/2024 9:51 AM EST Height 160 cm (5' 3 ) 09/23/2023 3:45 PM EDT Body Mass Index 30.29 09/23/2023 3:45 PM EDT Plan of Treatment Upcoming Encounters Date Type Department Care Team (Late st Contact Info) Description 01/02/2025 10:00 AM EST Office Visit [facility] Card[facility] [place] [facility] [address] [facility], [address] [place] [address] Susana Regalado MD [address] [place] [phone] [email or web address] Health Maintenance Due Date Last Done Comments DEPRESSION SCREENING 2012 SMOKING Hx and SMOKELESS TOBACCO SCREENING 2013 CHLAMYDIA SCREENING 2016 HEPATITIS C SCREENING 2018 HIV ONE-TIME SCREENING (18-65 YEARS) 2018 PAP SMEAR 2021 INFLUENZA VACCINE (#1) 2024 04/05/2020 COVID-19 VACCINE ( season) 2024 06/19/2020, 05/21/2020 Adult Td,Tdap Booster 09/24/2028 09/24/2018, 012 PNEUMOCOCCAL VACCINES (0-49 years) Aged Out 02/13/2001, 2000, 2000 No longer eligible based on patient's age to complete this topic HIB VACCINES Completed 08/19/2001, 01/26, 2000, Additional history exists HPV VACCINES Completed 09/24/2018, 03/29, 09/22/2015 MENINGOCOCCAL VACCINES (ACWY) Completed 09/24/2018, 02/13/2012 HEPATITIS A VACCINES Aged Out No long er eligible based on patient's age to complete this topic MENINGOCOCCAL VACCINES (B) Aged Out N o longer eligible based on patient's age to complete this topic Medical Devices Not on file Insurance [employer] [employer] [employer] Care Teams Operations Intelligence Superintendent Relationship Specialty Start Date End Date Fer Drummond MD [address] [place] [address] PCP - General Family Medicine 07/18/21 Additional Source Comments The information contained in this document represents components of the legal health record. It is not the complete legal health record.[facility]
--- OUTSIDE RECORDS SUMMARY | 2024-12-11 14:19 | XMS_ITS | Encounter Summary ---
Author Organization [facility] Address [address] [place] [address] [place] [address] Phone Care Team Providers Care Ball Sorter Name Role Phone Fer Drummond MD Primary Care Provider Encounter Details Date Type Department Care Team (Late st Contact Info) Description 08/09/2021 Procedure Pass [facility] [place]iology Referral Images [address] [place] [address] Social History Tobacco Use Types Packs/Day Years [...] 01/02/2025 10:00 AM EST Office Visit [facility] [place] [facility] [address] [facility], [address] [place] [address] Susana Regalado MD [address] [facility], [address] [place] [address] [email or web address] documented as of this encounter Visit Diagnoses Not on filedocumented in this encounter Additional Health Concerns Infection Onset Date Last Indicated Resolved Time CoV-Risk 09/23/2023 09/23/2023 10/04/2023 1:22 AM EDT documented as of this encounter Care Teams Ball Sorter Relationship Specialty Start Date End Date Fer Drummond MD [address] [place] [address] PCP - General Family Medicine 07/18/21 documented as of this encounter Additional Source Comments The information contained in this document represents components of the legal health record. It is not the complete legal health record.[facility]
== END 2024-12-11 12:24 | disposition home or self-care (01) ==
LOC: HO.HSM 11:10
PROVIDERS: PCP Pediatrics; Referring Provider Pediatrics; Visit Provider Registered Nurse
DX: G43.909 Migraine, unspecified, not intractable, without status migrainosus (principal); G44.209 Tension-type headache, unspecified, not intractable
CPT/HCPCS: 99214

== ENCOUNTER 2025-01-13 14:40 | Outpatient (AMB) | payer MEDICAID, SELFPAY ==
--- NOTE | 2025-01-13 15:00 | MHC.OFFVIS ---
Vital Signs 01/13/25 15:02 Height 5 ft 3 in Weight 183 lb BMI 32.4 BP 116/70 Intake Visit Reasons: annual Accountant Supervisor Required: No Information Interpreted: non-clinical & clinical Field Staff Manager: Field Staff Manager Present (Lorie SHELL) Accompanied by: Self / Same As Patient Allergies shellfish derived (SHELLFISH DERIVED) Allergy (Severe, Verified 01/13/25 15:03) hives SEAFOOD Allergy (Severe, Uncoded 01/13/25 15:03) swelling GRASS Allergy (Intermediate, Uncoded 01/13/25 15:03) Rash SEASONAL ALLERGIES Allergy (Mild, Uncoded 01/13/25 15:03) sneezing Is last menstrual period known: No ([facility]) HPI Comments Details: Presenting for annual exam. No complaints. Last Pap was ascus HPV positive in 01/19, this was preceded by negative Pap HPV positive in 12/18, colpo biopsy showed MANDY 1 PFSH Medical History HPV in female High cholesterol Motion sickness Migraine Overweight (BMI 25.0-29.9) Paroxysmal sinus tachycardia Surgical History [place] teeth extracted Family History Mother Cancer Cervical cancer Father No problems noted. 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 Current occupational exposures/hazards: No Sexually active: Yes Sexual orientation: Straight/Heterosexual Gender identity: Female Cognitive needs: No Hearing needs: No Vision needs: No Female Reproductive History Menstrual Age of Menarche: 12 Date of last pap smear: 01/10/24 History of abnormal pap smear: Yes Review of Systems Const All systems reviewed & are unremarkable except as noted in HPI and below Card Reports as per HPI Resp Reports as per HPI GI Reports as per HPI and Reports no additional complaints Reports as per HPI Physical Exam Vital Signs: Last Vital Signs BP 116/70 01/13/25 15:02 BMI result Body Mass Index 32.4 Const General: cooperative, healthy appearing and comfortable Chest Chest palpation & inspection: normal inspection of the chest and normal palpation of entire chest wall Breast/axilla inspection: normal inspection of the breasts and normal inspection of the axillae Breast/axilla palpation: normal palpation of the breasts, normal palpation of the axillae and no axillary lymphadenopathy Resp Effort & Inspection: normal respiratory effort Auscultation: clear to auscultation bilaterally Percussion: percussion normal Cardio Palpation: normal PMI Rate: regular rate Rhythm: regular rhythm Heart sounds: no murmurs and no rubs Peripheral pulses: Peripheral pulses 2+ throughout GI Inspection: Yes normal to inspection Palpation (GI): Soft to palpation, nontender, no guarding, not rigid and No hepatosplenomegaly present Percussion: Yes normal to percussion Auscultation: normal bowel sounds Rectal Exam - Female: deferred General: Yes bladder normal to palpation External Female Exam: No lesion Speculum Exam - Vagina: normal appearance of the vagina, normal palpation, normal vaginal discharge and not erythematous Speculum Exam - Cervix: normal appearance of the cervix and normal palpation Bimanual exam- vagina & uterus: normal bimanual exam, normal palpation, uterine size normal, bladder normal to palpation, consistency normal and normal palpation Bimanual Exam- Adnexa, other: normal adnexae, no masses and no tenderness Assessment & Plan Assessment & Plan (1) Well woman exam: Code(s): Z01.419 - Encounter for gynecological examination (general) (routine) without abnormal findings Category: Medical Plan: Pap , with GC and CT done. Counseled the patient about the recommended dietary allowance of 1000 mg of Calcium & 600 IU of vitamin D. The patient was instructed to perform monthly self-breast exams and to schedule an annual exam in a year; All questions answered and the patient verbalized understanding. Instructed the patient to schedule annual exam in a year Coding Level of Care Code Est Pt Prev Care 18-39y(09139) Diagnoses Well woman exam Z01.419
[2025-01-13 15:02] VITALS: BP 116/70; BMI 32.4
--- OUTSIDE RECORDS SUMMARY | 2025-01-14 12:33 | XMS_ITS | Encounter Summary ---
Author Organization [facility] Address [address] [place] [address] Phone Care Team Providers Care Office Associate Name Role Phone Radhames Nathan MD Primary Care Provider [phone] Encounter Details Date Type Department Care Team (Late st Contact Info) Description 10/04/2016 Conversion Encounter [facility] - [address], [address] [place] [address] Sunita Meade MD [address] [place] [address] Social History Tobacco Use Types Packs/Day Years [...] on filedocumented in this encounter Care Teams Office Associate Relationship Specialty Start Date End Date Radhames Nathan MD [address] [place] [address] PCP - General Pediatrics 02/01/17 09/14/20 documented as of this encounter
--- OUTSIDE RECORDS SUMMARY | 2025-01-14 12:33 | XMS_ITS | Data Portability ---
Author Organization [facility] Address [address] [place] [address] Care Team Providers Care Acid Correction Hand Name Role Phone LALA RILEY Primary Care Provider Assessment No assessment recorded. Plan of Treatment Reminders Order Date Submit Date Provider Last Modified By Organization Details Last Modified Time Details Appointments None recorded. Lab None recorded. Referral None recorded. Procedures None recorded. Surgeries None recorded. Imaging XR, chest, 2 view 2022 023 [email or web address], [address] [place], [address], 10:53:21 Medication Orders azithromyci n 250 mg tablet 2022 023 [facility][id number], [address] [place], [address], 3 10:46:31 amoxicillin 875 mg tablet 2022 023 [facility][id number], [address] [place], [address], 3 10:46:31 Patient TargetsNo targets recorded. Patient Instructions Encounter Date Encounter Id Patient Instructions Last Modified By Organization Details Last Modified Time 06/13/2022 [id number] cough: care instructions [email or web address] Not available 06/13/2022 09:35:48 pneumonia: care instructions [email or web address] Not available 06/13/2022 10:46:46 Take the antibiotics [...] the effectiveness of your current control medication. [email or web address] Not available 06/13/2022 10:48:25 Reason for Referral None Reported. Results Created Date Observation Date Name Description Value Unit Range Abnormal Flag Note LastModifiedBy Organization Detail LastModifiedTime 06/14/1906/13/2022 XR, chest , 2 view No observ ation record ed. [email or web address] [facility] [address] [place], [address], 06/13/2022 10:44:30 06/14/19 XR, chest , 2 view No observ ation record ed. [facility] [address] [place], [address], 06/13/2022 15:06:27 Result Notes None recorded. Problems Name Problem SNOMED Code Status Onset Date Resolution Date Notes Provider Name and Address Organization Details Recorded Time Postural orthostatic tachycardia syndrome 696268420 Active 2022 Naty espino, [place] - [facility] 3 08:54:51 Hypercholester olemia 92951454 Active 2022 Naty espino, [place] - [facility] 3 08:54:56 Migraine 52883398 Active 2022 Naty espino, [place] - [facility] 3 08:55:01 Problem Notes None recorded. Medical Equipment None Reported. Allergies Allergen ID Allergen Name Allergen Category Reaction Reaction Severity Criticality Documentation Date Start Date Code Code System Note Provider Name and Address Organization Details Recorded Time 660306 shellfish derived food,medi cation Not available Not [...] Updated DateTime 3 160.02 cm 27.5 kg/m2 76158.8 2 g 4 98 % 98 % 73 /min 98.6 [degF] 18 /min 116/81 mm[Hg] Naty Musa [facility] 3 08:56:47 Social History Question Answer Notes LastModified by [employer] Details LastModified Time Tobacco Smoking Status Never Smoker aNty espino [facility] 06/13/2022 08:55:36 Have You Recently Traveled Abroad? No Information not available 06/13/2022 Sex: Unknown Functional Status Question Answer Note LastModified by [employer] Details LastModified Time How many times per [...] ICD10 Code Diagnosis IMO Codes Diagnosis Note [id number] [address] [place] [address] 02/27/2018 12:24:50 02/27/2018 13:15:03 [id number] [facility] [address] [place] [address] 11/24/2021 15:03:33 11/24/2021 17:34:12 [id number] Magdalena Soriano MD [address] [facility] [place] [address] 06/13/2022 08:10:32 06/13/2022 10:53:21 Cough 09601726 R05.9 Community acquired pneumonia 861711367 J18.9 Health Concerns Section Related Observation LastModified by Organization Detai ls LastModified Time None Recorded Concern Status LastModified by Organization Details LastModified Time None Recorded Advance Directives Directive None Recorded Payers Insurance Date Sequence Insurance Name Policy Number Policy Thomas Covered Member ID Thomas Member ID Guarantor Name 06/13/2022 1 [facility] NET PLAN (MEDICAID HMO) PATRICK Krishnamurthy [id number] Mary Krishnamurthy Notes Date Note Type Note [...] post nasal drip. Magdalena Soriano MD [address] [facility] [place], [address], [place] - [facility] 06/13/2022 10:49:45 OBGyn Episode No OBEpisode recorded.
--- OUTSIDE RECORDS SUMMARY | 2025-01-14 12:33 | XMS_ITS | Encounter Summary ---
Author Organization [facility] Address [address] [place] [address] [address] [place] [address] Phone Care Team Providers Care Chief Station Engineer Name Role Phone Fer Drummond MD Primary Care Provider Fer Drummond MD Primary Care Provider Encounter Details Date Type Department Care Team (Late st Contact Info) Description 08/09/2021 Procedure Pass [facility] [place] Referral Images [address] [place] [address] Social History Tobacco Use Types Packs/Day Years [...] Care Team (Late st Contact Info) Description 10/07/2025 2:00 PM EDT Office Visit [facility] [place] [facility] [address] [facility], [address] [place] [phone] Lilly Mayen, DRIVER RECRUITER [address] [place] [address] [email or web address] documented as of this encounter Visit Diagnoses Not on filedocumented in this encounter Additional Health Concerns Infection Onset Date Last Indicated Resolved Time CoV-Risk 09/23/2023 09/23/2023 10/04/2023 1:22 AM EDT documented as of this encounter Care Teams Chief Station Engineer Relationship Specialty Start Date End Date Fer Drummond MD PCP - General Family Medicine 07/18/21 12/29/24 Fer Drummond MD [address] [place] [address] PCP - General Family Medicine 12/30/24 documented as of this encounter Additional Source Comments The information contained in this document represents components of the legal health record. It is not the complete legal health record.[facility]
--- OUTSIDE RECORDS SUMMARY | 2025-01-14 12:33 | XMS_ITS | Clinical Summary ---
Author Organization Formerly [facility] Address [address] [place] [phone] Phone Care Team Providers Care Stator Tester Name Role Phone Fer Drummond MD Primary Care Provider Allergies Active Allergy Reactions Criticality Noted Date Comments Fish Anaphylaxis High 02/22/2022 Other Low 07/22/2017 Other Reaction(s): Postive Skin test/Positive RAST Trees, mold, grass, leaves, cats and horses. Medications atorvastatin (LIPITOR) 10 MG tablet Take 10 mg by mouth daily. Active ondansetron (ZOFRAN-ODT) 4 MG disintegrating tablet 08/04/19 24 Active pyRIDostigmine (MESTINON) 60 mg tablet Take 1 tablet (60 mg total) by mouth 3 (three) times a day. 270 tablet 3 11/20/19 24 Active propranoloL (INDERAL) 10 MG immediate release tablet Take 2 tablets (20 mg total) by mouth 2 (two) times a day. 180 tablet 3 01/03/20 25 Active midodrine (PROAMATINE) 5 MG tablet Take 1 tablet (5 mg total) by mouth 2 (two) times a day. Am and midday _lasts 3-4 hours 60 tablet 11 01/03/20 25 Active levonorgestrel/et hin.estradiol (ALTAVERA, 28, ORAL) Take by mouth. 025 Discontinued albuterol 90 mcg/actuation inhaler INHALE 2 PUFFS EVERY 4 TO 6 HOURS NEEDED FOR SHORTNESS OF BREATH OR WHEEZING 09/12/19 24 025 Discontinued propranoloL (INDERAL) 10 MG immediate release tablet Take 1 tablet (10 mg total) by mouth 2 (two) times a day. 180 tablet 3 02/25/20 24 025 Discontinued Active Problems Problem Noted Date Diagnosed Date POTS (postural orthostatic tachycardia syndrome) 02/22/2022 Overview (02/22/2022): Seems you have POTS vs inappropriate Sinus tachycardia Beta blockers may drop pressure Assessment & Plan (01/02/2025 10:45 AM EST): Increase Propranolol 20 mg twice per day to run the heart rate tower. Add Midodrine 5 mg AM and Noon to railse blood pressue 3-4 hours Mestinon (Pyridostigmine) is a cholinesterase inhibiter that decreases the degradation of acetylcholine which is the pitts neurotransmitter in both fight or flight (sympathetic) and rest and digest (parasympathetic) autonomic systems. The Baroreflex that regulates blood pressure and heart rate on standing is part of the sympathetic nervous system. Mestinon is best for patients with mild to moderate orthostatic hypotension. It will also run heart rate lower and increase bowel motility. 2-3 liters Fluid - Chug 1st glass of the day Salt - Soup, NUUNS, Liq IV Compression Socks 30 mmHg Lower extremity exercise 6,000 -10,000 steps per day Book: POTs Together we Stand: Riding the Waves of Dysautonomia. By Lakeshia Young Assessment & Plan (03/08/2023 9:45 PM EST): [...] 1 month full effect in 3 months Encounters Date Type Department Care Team Description 01/02/2025 10:00 AM EST Office Visit [facility] Cardiology [facility] [address], [address] [place] [phone] Susana Damon MD POTS (postural orthostatic tachycardia syndrome) (Primary Dx); Family history of early CAD; Pure hypercholesterolemia; Adverse effect of cardiovascular drug, sequela from Last 3 Months Immunizations Immunization Administration Dates Next Due PPD [...] Sign Reading Time Taken Comments Blood Pressure 108/72 01/02/2025 10:03 AM EST Pulse 80 01/02/2025 10:03 AM EST Temperature 36.9 C (98.5 F) 09/23/2023 3:45 PM EDT Respiratory Rate 18 09/23/2023 3:45 PM EDT Oxygen Saturation 98% 09/23/2023 3:45 PM EDT Inhaled Oxygen Concentration - - Weight 83.9 kg (185 lb) 01/02/2025 10:03 AM EST Height 160 cm (5' 3 ) 09/23/2023 3:45 PM EDT Body Mass Index 32.77 09/23/2023 3:45 PM EDT Plan of Treatment Upcoming Encounters Date Type Department Care Team (Late st Contact Info) Description 10/07/2025 2:00 PM EDT Office Visit [facility] Cardiology [facility] [address] [place] [address], [address] [place] [address] Lilly Mayen, MANAGED CARE DIRECTOR [address] [place] [address] [email or web address] Health Maintenance Due Date Last Done Comments [...] 08/19/2001, 01/26, 2000, Additional history exists IPV VACCINES Completed 10/25/2004, 07/28, 2000, Additional history exists HPV VACCINES Completed 09/24/2018, 03/29, 09/22/2015 MENINGOCOCCAL VACCINES (ACWY) Completed 09/24/2018, 02/13/2012 HEPATITIS A VACCINES Aged Out No long er eligible based on patient's age to complete this topic MENINGOCOCCAL VACCINES (B) Aged Out N o longer eligible based on patient's age to complete this topic Medical Devices Not on file Procedures Procedure Name Priority Date/Time Associated Diagnosis Comments LIPID PANEL Routine 01/02/2025 12:22 PM EST Pure hypercholesterolemia COMPREHENSIVE METABOLIC PANEL (CMP) Routine 01/02/2025 12:22 PM EST Adverse effect of cardiovascular drug, sequela LIPOPROTEIN(A) Routine 01/02/2025 12:21 PM EST Family history of early CAD CBC Routine 01/02/2025 12:21 PM EST Adverse effect of cardiovascular drug, sequela ECG 12-LEAD Routine 01/02/2025 9:56 AM EST POTS (postural orthostatic tachycardia syndrome) from Last 3 Months Results * Comprehensive Metabolic Panel (CMP) (01/02/2025 12:22 PM EST) Sodium 139 136 - 145 mmol/L 01/02/2025 1:08 PM EST [facility] Potassium 5.0 3.4 - 5.1 mmol/L 01/02/2025 1:08 PM EST [facility] Chloride 100 98 - 107 mmol/L 01/02/2025 1:08 PM EST [facility] CO2 27 20 - 31 mmol/L 01/02/2025 1:08 PM EST [facility] Anion Gap 12 3 - 17 mmol/L 01/02/2025 1:08 PM EST [facility] BUN 8 6 - 23 mg/dL 01/02/2025 1:08 PM EST [facility] Creatinine 0.76 0.50 - 1.00 mg/dL 01/02/2025 1:08 PM EST [facility] eGFR 112 >59 mL/min/1.7 3m2 01/02/2025 1:08 PM EST [facility] Comment:Estimated glomerular filtration rate calculated using the CKD-EPI refit equation. Glucose 93 70 - 99 mg/dL 01/02/2025 1:08 PM EST [facility] Calcium 10.3 8.5 - 10.5 mg/dL 01/02/2025 1:08 PM EST [facility] AST 20 9 - 32 U/L 01/02/2025 1:08 PM EST [facility] ALT 21 7 - 33 U/L 01/02/2025 1:08 PM EST [facility] Alkaline Phosphatase 95 40 - 130 U/L 01/02/2025 1:08 PM EST [facility] Bilirubin, Total 0.5 0.0 - 1.2 mg/dL 01/02/2025 1:08 PM EST [facility] Total Protein 7.7 6.4 - 8.3 g/dL 01/02/2025 1:08 PM [facility] Albumin 4.6 3.5 - 5.2 g/dL 01/02/2025 1:08 PM EST [facility] Globulin 3.1 1.9 - 4.1 g/dL 01/02/2025 1:08 PM EST [facility] Blood (Blood) Venipuncture / Unknown 01/02/2025 12:22 PM EST 01/02/2025 12:29 PM EST Susana Damon MD LAB BLOOD BKR ORDERABLES Final Result Performing Organization Address City/[facility]/ZIP Co de Phone Number [facility] [address] [place] [phone] * Lipid Panel (01/02/2025 12:22 PM EST) Cholesterol 180 <200 mg/dL 01/02/2025 1:08 PM EST [facility] HDL 63 >=40 mg/dL 01/02/2025 1:08 PM EST [facility] Calculated LDL 105 <130 mg/dL 01/02/2025 1:08 PM EST [facility] Comment:LDL is calculated us ing the Mack-NIH equation (ARIELA Cardiol. 2019 1;5(5):540-548). Non-HDL Cholesterol 117 mg/dL 01/02/2025 1:08 PM EST [facility] Comment:Guidelines suggest a non-HDL cholesterol goal 30 mg/dL higher than the patient-specific LDL cholesterol goal. Cardiac Risk Ratio 2.9 0.0 - 5.0 2024 1:08 PM EST [facility] Triglycerides 64 <=150 mg/dL 01/02/2025 1:08 PM EST [facility] Blood (Blood) Venipuncture / Unknown 01/02/2025 12:22 PM EST 01/02/2025 12:29 PM EST Susana Damon MD LAB BLOOD BKR ORDERABLES Final Result [facility] [address] [place] [address] * Lipoprotein(a) (01/02/2025 12:21 PM EST) Lipoprotein (a) 14 <75 nmol/L 6:52 AM EST IVONNE CORTES (BEAKER) Comment: . Risk Category Optimal < 75 nmol/L Moderate 75 - 125 nmol/L High > 125 nmol/L . Cardiovascular event risk category cut points (optimal, moderate, high) are based on Erica Rashid JACC 2017;69:692-711. . Blood (Blood) Venipuncture / Unknown 01/02/2025 12:21 PM EST 01/02/2025 12:29 PM EST Narrative [facility] (ADALI) - 01/13/2025 6:52 AM EST [facility] Received Date and Time: [id number] us Susana Damon MD LAB BLOOD BKR ORDERABLES Final Result [facility] (BEAKER) [facility]ITAL[facility] CorporationArnav (Stratio) [address] [place], [place] , [facility] * (ABNORMAL) CBC (01/02/2025 12:21 PM EST) WBC 11.07(H) 4.00 - 11.00 K/uL 01/02/2025 12:40 PM EST [facility] RBC 5.11 4.00 - 5.20 M/uL 01/02/2025 12:40 PM EST [facility] Hemoglobin 14.3 12.0 - 16.0 g/dL 01/02/2025 12:40 PM EST [facility] Hematocrit 44.0 36.0 - 46.0 % 01/02/2025 12:40 PM EST [facility] MCV 86.1 80.0 - 100.0 fL 01/02/2025 12:40 PM EST [facility] MCH 28.0 27.0 - 31.0 pg 01/02/2025 12:40 PM EST [facility] MCHC 32.5 32.0 - 36.0 g/dL 01/02/2025 12:40 PM EST [facility] PLT 330 150 - 450 K/uL 01/02/2025 12:40 PM EST [facility] MPV 10.2 8.4 - 12.0 fL 01/02/2025 12:40 PM EST [facility] RDW-CV 12.4 11.5 - 14.5 % 01/02/2025 12:40 PM EST [facility] Absolute NRBC 0.00 <=0.00 K cells/uL 01/02/2025 12:40 PM EST [facility] NRBC 0.0 <=0.0 /100 WBCs 01/02/2025 12:40 PM EST [facility] Blood (Blood) Venipuncture / Unknown 01/02/2025 12:21 PM EST 01/02/2025 12:29 PM EST us Susana Damon MD LAB BLOOD BKR ORDERABLES Final Result Performing Organization Address City/[facility] Co de Phone Number [facility] [address] [place] [address] * ECG 12-LEAD (01/02/2025 9:56 AM EST) Systolic Blood Pressure [facility] Diastolic Blood Pressure [facility] Ventricular Rate EKG/MIN 80 BPM [facility] Atrial Rate 80 BPM [facility] OH Interval 150 ms [facility] QRS Duration 74 ms [facility] QT Interval 372 ms [facility] QTC Interval 429 ms [facility] P [place] 45 degrees [facility] R Wave [place] 69 degrees [facility] T Wave [place] 41 degrees [facility] 01/02/2025 9:56 AM EST 01/09/2025 9:36 AM EST Narrative [facility] - 01/09/2025 9:36 AM EST LOC: [facility] DX: POTS REF: SUSANA DAMON SINUS RHYTHM MINOR NONSPECIFIC ST SEGMENT AND T WAVE ABNORMALITIES WHEN COMPARED WITH ECG OF 25-Feb-2024 09:49, NO IMPORTANT CHANGE us Susana Damon MD ECG ORDERABLES Final Result Performing Organization Address City/[facility] Co de Phone Number [facility] from Last 3 Months Insurance [facility] Care Teams Stator Tester Relationship Specialty Start Date End Date Fer Drummond MD [address] [place] [address] PCP - General Family Medicine 12/30/24 Additional Source Comments The information contained in this document represents components of the legal health record. It is not the complete legal health record.Formerly [facility]
--- OUTSIDE RECORDS SUMMARY | 2025-01-14 12:33 | XMS_ITS | Clinical Summary ---
Author Organization [facility] Address [address] [place] [phone] Phone Care Team Providers Care Captain Fishing Vessel Name Role Phone Unavailable Primary Care Provider [...] ER Dysthymic disorder 03/08/2015 Overview (08/21/2017): Per [facility] evaluation. R/O Nonverbal learning disorder ([facility] trouble reaching mom to complete it), R/O ADHD predominantly inattentive type. Referred for therapy to [facility] in [place] (walk in intake available). 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 They can happen at other times as well. 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 No change in 2017 [...] complete this topic Procedures * Due to [place] law, this organization might not be sharing sensitive test results. Procedure Name Priority Date/Time Associated Diagnosis Comments CHLAMYDIA TRACHOMATIS, AMPLIFIED Routine 04/14/2016 12:00 AM EST from Last 3 Months or Most Recently Relevant to Health Maintenance Results * Due to [place] law, this organization might not be sharing sensitive test results. * Chlamydia trachomatis, Amplified (04/14/2016 12:00 AM EST) C.TRACHOMATIS PCR Not Detected CONVERTED LAB[facility] Comment: Elena Foster 04/13/2016 10:42:04 AM > , Urine sample labeled and sent to [facility] Kym Christianson 04/15/2016 03:17:49 PM > Sunita Meade 04/18/2016 08:52:26 AM > Negative Reason: Received -[facility] Lab Order Cook Dessert 04/14/2016 Narrative [facility] - 04/14/2016 12:00 AM EST Chlamydia trachomatis detection by PCR us Sunita Meade MD LAB MICROBIOLOGY - GENERAL OR DERABLES Final Result [facility] from Last 3 Months or Most Recently Relevant to Health Maintenance
--- OUTSIDE RECORDS SUMMARY | 2025-01-14 12:33 | XMS_ITS | Encounter Summary ---
Author Organization [facility] Address [address] [place] [address] [place] [phone] Phone Care Team Providers Care Lithograph Press Operator Tinware Name Role Phone Fer Drummond MD Primary Care Provider Fer Drummond MD Primary Care Provider Encounter Details Date Type Department Care Team (Late st Contact Info) Description 04/25/2024 Procedure Pass [facility] Cardiology [address] [facility] [address], [address] [place] [phone] Social History Tobacco Use Types Packs/Day Years [...] Description 10/07/2025 2:00 PM EDT Office Visit [facility] Cardiology [facility] [address] [facility] [address], [address] [place] [address] Lilly Mayen, CASSANDRA ARCHITECT [address] [place] [address] [email or web address] documented as of this encounter Visit Diagnoses Not on filedocumented in this encounter Care Teams Lithograph Press Operator Tinware Relationship Specialty Start Date End Date Fer Drummond MD PCP - General Family Medicine 07/18/21 12/29/24 Fer Drummond MD [address] [place] [phone] PCP - General Family Medicine 12/30/24 documented as of this encounter Additional Source Comments The information contained in this document represents components of the legal health record. It is not the complete legal health record.[facility]
== END 2025-01-13 15:19 | disposition home or self-care (01) ==
LOC: HO.HWS 14:41
PROVIDERS: PCP Family Medicine; Visit Provider Obstetrics & Gynecology
DX: Z01.419 Encounter for gynecological examination (general) (routine) without abnormal findings (principal)
CPT/HCPCS: 99395; 99459

== ENCOUNTER 2025-01-13 14:40 | Outpatient (REF) | payer MEDICAID, SELFPAY ==
[2025-01-14 14:06] LABS: CT PCR NOT DETECTED (Not Detect.); NG PCR NOT DETECTED (Not Detect.)
== END 2025-01-13 14:41 | disposition home or self-care (01) ==
LOC: HO.LNP 14:40
PROVIDERS: PCP Family Medicine; Visit Provider Obstetrics & Gynecology
DX: Z01.419 Encounter for gynecological examination (general) (routine) without abnormal findings (principal); Z20.2 Contact with and (suspected) exposure to infections with a predominantly sexual mode of transmission
CPT/HCPCS: 87491; 87591; 88175; 99395